=== PATIENT | female | born 1935 | race Caucasian/White ===

== ENCOUNTER 2016-12-08 10:24 | Outpatient (CLI) | payer MEDICARE | END 2016-12-08 10:25 | disposition home or self-care (01) | DX: Z00.00 Encounter for general adult medical examination without abnormal findings (principal); H91.90 Unspecified hearing loss, unspecified ear; K21.9 Gastro-esophageal reflux disease without esophagitis; K31.89 Other diseases of stomach and duodenum; E73.9 Lactose intolerance, unspecified; R19.7 Diarrhea, unspecified; K57.90 Diverticulosis of intestine, part unspecified, without perforation or abscess without bleeding; M85.80 Other specified disorders of bone density and structure, unspecified site; E02 Subclinical iodine-deficiency hypothyroidism ==

== ENCOUNTER 2017-12-26 10:48 | Outpatient (CLI) | payer MEDICARE ==
[2017-12-26 11:32] LABS: BASOPHILS # (AUTO) 0.1 10^3/uL (0.0-0.1); BASOPHILS % (AUTO) 0.8 %; EOSINOPHILS # (AUTO) 0.2 10^3/uL (0.0-0.7); EOSINOPHILS % (AUTO) 1.6 %; LYMPHOCYTES # (AUTO) 1.8 10^3/uL (1.5-3.5); LYMPHOCYTES % (AUTO) 17.8 %; MEAN CORPUSCULAR HEMOGLOBIN 30.3 pg (27.0-31.0); MEAN CORPUSCULAR HGB CONC 33.3 g/dL (32.0-36.0); MEAN CORPUSCULAR VOLUME 91.1 fL (81.0-99.0); MEAN PLATELET VOLUME 8.8 fL (7.9-10.8); MONOCYTES # (AUTO) 0.6 10^3/uL (0.0-1.0); MONOCYTES % (AUTO) 6.3 %; NEUTROPHILS # (AUTO) 7.3 10^3/uL (1.5-6.6); NEUTROPHILS % (AUTO) 73.5 %; PLT - PLATELET COUNT 302 10^3/uL (130-450); RED BLOOD COUNT 4.95 10^6/uL (4.20-5.40); RED CELL DISTRIBUTION WIDTH 14.2 % (12.0-15.0)
[2017-12-26 11:47] LABS: ALBUMIN 4.4 g/dL (3.2-5.5); ALBUMIN/GLOBULIN RATIO 1.5 (1.0-2.2); ALKALINE PHOSPHATASE 82 IU/L (42-121); ALT ALANINE AMINOTRANSFERASE 22 IU/L (10-60); AST ASPARTATE AMINOTRANSFERASE 18 IU/L (10-42); BILIRUBIN,TOTAL 0.8 mg/dL (0.2-1.0); BUN - BLOOD UREA NITROGEN 15 mg/dL (6-20); CARBON DIOXIDE - CO2 27 mmol/L (21-32); CHLORIDE 100 mmol/L (101-111); CHOLESTEROL 152 mg/dL; CREATININE 0.8 mg/dL (0.4-1.0); GFR - MDRD 69 (>89); GLUCOSE 92 mg/dL (70-100); HDL CHOLESTEROL 50 mg/dL; LDL CHOLESTEROL,CALCULATED 70 mg/dL; LDL/HDL RATIO 1.4 (<4.4); MAGNESIUM 2.1 mg/dL (1.7-2.8); SODIUM 134 mmol/L (135-145); TOTAL PROTEIN 7.4 g/dL (6.7-8.2); VLDL CHOLESTEROL 32 mg/dL
[2017-12-26 12:05] LABS: BILIRUBIN,URINE NEGATIVE (NEGATIVE); CLARITY,URINE CLOUDY (CLEAR); GLUCOSE, URINE (UA) NEGATIVE (NEGATIVE); KETONES,URINE (UA) NEGATIVE (NEGATIVE); LEUKOCYTE ESTERASE, URINE NEGATIVE (NEGATIVE); NITRITE,URINE NEGATIVE (NEGATIVE); OCCULT BLOOD,URINE NEGATIVE (NEGATIVE); PH,URINE 5.5 PH (5.0-7.5); PROTEIN,URINE NEGATIVE (NEGATIVE); UROBILINOGEN,URINE 0.2 (NORMAL) E.U./dL (NORMAL)
[2017-12-26 12:06] LABS: RBC MORPHOLOGY (MULTIPLE) 2+ ANISOCYTOSIS (NORMAL)
[2017-12-26 12:07] LABS: PLATELET MORPHOLOGY RARE GIANT PLATELETS (NORMAL)
[2017-12-26 12:14] LABS: THYROID STIMULATING HORMONE 1.18 uIU/mL (0.34-5.60)
[2017-12-26 12:16] LABS: FREE T4 (FREE THYROXINE) 0.93 ng/dL (0.58-1.64)
[2017-12-26 12:41] LABS: RBC,URINE 0-5 /HPF (0-5)
[2017-12-26 12:42] LABS: AMORPHOUS SEDIMENT,UR Moderate /LPF; BACTERIA,URINE Few /HPF (None Seen); SQUAMOUS EPITHELIAL CELL,UR MOD Squamous (<= Few)
== END 2017-12-26 10:49 | disposition home or self-care (01) ==
LOC: LAB 10:48
PROVIDERS: ATTEND Internal Medicine
DX: Z79.899 Other long term (current) drug therapy (principal); G47.00 Insomnia, unspecified; L98.9 Disorder of the skin and subcutaneous tissue, unspecified; I10 Essential (primary) hypertension; H91.90 Unspecified hearing loss, unspecified ear; K21.9 Gastro-esophageal reflux disease without esophagitis; R19.7 Diarrhea, unspecified; M54.2 Cervicalgia; M25.50 Pain in unspecified joint; Z87.442 Personal history of urinary calculi; M85.80 Other specified disorders of bone density and structure, unspecified site; E02 Subclinical iodine-deficiency hypothyroidism; R42 Dizziness and giddiness; R00.1 Bradycardia, unspecified; R00.2 Palpitations
CPT/HCPCS: 36415; 80053; 80061; 81001; 83721; 83735; 84439; 84443; 85025; 87086

== ENCOUNTER 2018-08-29 13:38 | Outpatient (CLI) | payer MEDICARE ==
--- NOTE | 2018-08-30 08:40 | Mammography Report ---
Reason: SCREENING MAMMO Procedure Date: 08/29/2018 Accession Number: [id number] / [id number] Procedure: JAKI - Screening Mammo w/[place] CPT Code: FULL RESULT: EXAM: Screening Mammo w/[place] DATE: 08/29/2018 2:37 PM CLINICAL HISTORY: Screening and contour. History of cyst aspiration or removal in the cleavage area. Family history of breast cancer in the mother at age 78. TECHNIQUE: Bilateral CC and MLO views were obtained. COMPARISON: 08/29/2017 through 08/02/2013. FINDINGS: The breasts demonstrate scattered fibroglandular densities bilaterally. There are typically benign coarse bilateral calcifications. No suspicious masses, clustered microcalcifications, or regions of architectural distortion are identified. IMPRESSION: Benign findings RECOMMENDATION: Routine annual screening unless otherwise clinically indicated. BIRADS CATEGORY 2: Benign findings STANDARD QUALIFYING STATEMENTS: 1. This examination was not reviewed with the aid of Computer-Aided Detection (CAD). 2. A negative or benign imaging report should not preclude biopsy if clinically suspicious findings are present. 3. Dense breasts may obscure an underlying neoplasm. 4. This examination was reviewed with the aid of 3D breast imaging (tomosynthesis).
== END 2018-08-29 13:39 | disposition home or self-care (01) ==
LOC: DI 13:38
PROVIDERS: ATTEND Internal Medicine
DX: Z12.31 Encounter for screening mammogram for malignant neoplasm of breast (principal); Z80.3 Family history of malignant neoplasm of breast
CPT/HCPCS: 77063; 77067

== ENCOUNTER 2019-06-16 04:45 | Outpatient (CLI) | payer MEDICARE | END 2019-06-16 04:46 | disposition critical access hospital (66) | LOC: EMS 04:45 | PROVIDERS: ATTEND Surgery | DX: R51 Headache (principal); R41.82 Altered mental status, unspecified | CPT/HCPCS: A0425; A0429 ==

== ENCOUNTER 2019-06-16 04:57 | Inpatient (IN) | payer MEDICARE ==
--- NOTE | 2019-06-16 05:06 | ED Physician Documentation ---
History of Present Illness - Stated complaint Stated Complaint: HEADACHE/DECREASED STRENGTH - Chief complaint Chief Complaint: Neuro - Additonal information Additional information: This is an 83-year-old female with a history of hypertension, Who presents with headache and confusion. Patient called for EMS and stated that she needed help getting back in the bed, when they arrived she met them at the door and stated that she was confused and had a headache. Specifically she states she is having trouble finding some words. She states the headache began around 2 to 3 hours ago, and was somewhat gradual in onset, but is now severe 8 out of 10. She has had headaches in the past but not as severe as this. She also states that she feels confused, and she thinks this began 4 hours ago. She denies any weakness, numbness, or tingling. No fever or chills. She denies any history of atrial fibrillation or other heart dysrhythmias. She denies falling or hitting her head. Her headache is bifrontal and constant. She is not on any blood thinners. Review of Systems Constitutional: denies: Fever Eyes: denies: Loss of vision Ears: reports: Loss of hearing, Other (wears hearing aids) Nose: denies: Rhinorrhea / runny nose Cardiac: reports: Chest pain / pressure, Palpitations Respiratory: denies: Dyspnea GI: denies: Abdominal Pain : denies: Dysuria Skin: denies: Rash Musculoskeletal: denies: Neck pain Neurologic: reports: Generalized weakness Immunocompromised: denies: Immunocompromised PD PAST MEDICAL HISTORY - Past Medical History Cardiovascular: Hypertension Respiratory: None Endocrine/Autoimmune: None GI: GERD, Hiatal hernia, Colon polyps, Diverticulitis : Frequency HEENT: None Psych: Claustrophobia Musculoskeletal: Osteoarthritis Derm: None - Past Surgical History Past Surgical History: Yes General: Cholecystectomy, 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 HEENT: Tonsil/Adenoidectomy - Present Medications Home Medications: Ambulatory Orders Medication Instructions Recorded Confirmed Amlodipine Besylate/Benazepril 1 mg PO DAILY 09/04/13 02/26/15 [Amlodipine-Benazepril 10-20 mg] Calcium Citrate/Vitamin D3 1 tab PO DAILY 09/04/13 02/26/15 [Calcium Citrate - Vit D Tablet] Cholestyramine/Aspartame 1 unit PO DAILY 09/04/13 02/26/15 [Cholestyramine Light Packet] Omeprazole [PriLOSEC] 20 mg PO DAILY 09/04/13 02/26/15 Ibuprofen [Motrin] 600 mg PO TID #20 tab 09/05/13 02/26/15 Meclizine [Antivert] 25 mg PO Q6H PRN #30 tablet 02/26/15 Ondansetron Odt [Zofran] 4 mg TL Q6H PRN #10 tablet 02/26/15 - Allergies Allergies/Adverse Reactions: Allergies Allergy/AdvReac Type Severity Reaction Status Date / Time latex Allergy Intermediate swelling Verified 06/16/19 05:12 ascorbic acid Allergy Unknown Unknown Verified 06/16/19 05:12 Penicillins AdvReac Intermediate Rash Verified 06/16/19 05:12 Sulfa (Sulfonamide AdvReac Intermediate Itching Verified 06/16/19 05:12 Antibiotics) - Social History Does the pt smoke?: No Smoking Status: Never smoker Does the pt drink ETOH?: No Does the pt have substance abuse?: No - Immunizations Immunizations are current?: Yes PD ED PE NORMAL - Vitals Vital signs reviewed: Yes - General General: No acute distress - HEENT HEENT: Atraumatic, PERRL, EOMI - Neck Neck: Supple, no meningeal sign, No bony TTP - Cardiac Cardiac: Other (Irregularly irregular heartbeat, tachycardic.) - Respiratory Respiratory: Clear bilaterally - Abdomen Abdomen: Soft, Non tender, Non distended - Derm Derm: Warm and dry - Extremities Extremities: No deformity - Neuro Neuro: Alert and oriented X 3, pm technician 2-12 intact, No motor deficit, No sensory deficit, Other (Patient is alert and oriented to self, place, and event. She has a slight delay in her speech at times, and some mild word-finding difficulty she states that she feels confused. Her pronounciation is normal. She has normal coordination with [id number] testing. 5 out of 5 strength with hand squeeze finger abduction elbow flexion and extension hip flexion, ankle plantarflexion and dorsiflexion. Sensation to light touch intact over all e xtremities. Mild right hemineglect on RUE extremity and R upper visual field. NIHSS 3 (Visual field, mild R neglect, mild aphasia)) - Psych Psych: Normal mood, Normal affect Results - Vitals Vitals: Vital Signs - 24 hr 06/16/19 06/16/19 06/16/19 04:57 05:03 05:33 Temperature 36 C L 36.9 C Heart Rate 136 H 160 H 130 H Respiratory 22 22 18 Rate Blood Pressure 124/89 H 152/73 H O2 Saturation 99 98 97 06/16/19 06/16/19 06/16/19 06:03 06:30 07:00 Temperature Heart Rate 135 H 157 H 115 H Respiratory 18 16 21 Rate Blood Pressure 109/84 H 131/76 H O2 Saturation 96 95 96 Oxygen O2 Source Room air - EKG (time done) 5:05 Other comments: Other comments (Rate 137, rhythm atrial fibrillation with rapid ventricular response. There is slight ST depression in the lateral leads, which may be rate related. No ST segment elevation.) - Labs Labs: Laboratory Tests 06/16/19 06/16/19 06/16/19 05:13 05:13 05:13 WBC 12.4 H RBC 4.92 Hgb 15.2 Hct 46.6 MCV 94.7 MCH 30.9 MCHC 32.6 RDW 13.2 Plt Count 293 MPV 11.5 H Neut # (Auto) 8.9 H Lymph # (Auto) 2.2 Bay # (Auto) 1.0 Eos # (Auto) 0.3 Baso # (Auto) 0.1 Absolute Nucleated RBC 0.00 Nucleated RBC % 0.0 PT INR Sodium 141 Potassium 4.0 Chloride 106 Carbon Dioxide 24 Anion Gap 11.0 BUN 20 Creatinine 0.9 Estimated GFR (MDRD) 60 L Glucose 115 H Lactic Acid Calcium 9.3 Total Bilirubin 0.8 AST 23 ALT 32 Alkaline Phosphatase 58 Troponin I High Sens 5.2 Total Protein 6.9 Albumin 3.9 Globulin 3.0 Albumin/Globulin Ratio 1.3 Lipase 22 TSH Urine Color Urine Clarity Urine pH Ur Specific Hustler Urine Protein Urine Glucose (UA) Urine Ketones Urine Occult Blood Urine Nitrite Urine Bilirubin Urine Urobilinogen Ur Leukocyte Esterase Ur Microscopic Review Urine Culture Comments Urine Opiates Screen Ur Oxycodone Screen Urine Methadone Screen Ur Propoxyphene Screen Ur Barbiturates Screen Ur Tricyclics Screen Ur Phencyclidine Scrn Ur Amphetamine Screen U Methamphetamines Scrn U Benzodiazepines Scrn Urine Cocaine Screen U Cannabinoids Screen Ethyl Alcohol < 5.0 06/16/19 06/16/19 06/16/19 05:13 05:13 05:13 WBC RBC Hgb Hct MCV MCH MCHC RDW Plt Count MPV Neut # (Auto) Lymph # (Auto) Bay # (Auto) Eos # (Auto) Baso # (Auto) Absolute Nucleated RBC Nucleated RBC % PT 11.4 INR 1.0 Sodium Potassium Chloride Carbon Dioxide Anion Gap BUN Creatinine Estimated GFR (MDRD) Glucose Lactic Acid 2.3 H Calcium Total Bilirubin AST ALT Alkaline Phosphatase Troponin I High Sens Total Protein Albumin Globulin Albumin/Globulin Ratio Lipase TSH 1.20 Urine Color Urine Clarity Urine pH Ur Specific Hustler Urine Protein Urine Glucose (UA) Urine Ketones Urine Occult Blood Urine Nitrite Urine Bilirubin Urine Urobilinogen Ur Leukocyte Esterase Ur Microscopic Review Urine Culture Comments Urine Opiates Screen Ur Oxycodone Screen Urine Methadone Screen Ur Propoxyphene Screen Ur Barbiturates Screen Ur Tricyclics Screen Ur Phencyclidine Scrn Ur Amphetamine Screen U Methamphetamines Scrn U Benzodiazepines Scrn Urine Cocaine Screen U Cannabinoids Screen Ethyl Alcohol 06/16/19 06:37 WBC RBC Hgb Hct MCV MCH MCHC RDW Plt Count MPV Neut # (Auto) Lymph # (Auto) Bay # (Auto) Eos # (Auto) Baso # (Auto) Absolute Nucleated RBC Nucleated RBC % PT INR Sodium Potassium Chloride Carbon Dioxide Anion Gap BUN Creatinine Estimated GFR (MDRD) Glucose Lactic Acid Calcium Total Bilirubin AST ALT Alkaline Phosphatase Troponin I High Sens Total Protein Albumin Globulin Albumin/Globulin Ratio Lipase TSH Urine Color YELLOW Urine Clarity CLEAR Urine pH 5.0 Ur Specific Hustler >=1.030 H Urine Protein NEGATIVE Urine Glucose (UA) NEGATIVE Urine Ketones NEGATIVE Urine Occult Blood NEGATIVE Urine Nitrite NEGATIVE Urine Bilirubin NEGATIVE Urine Urobilinogen 0.2 (NORMAL) Ur Leukocyte Esterase NEGATIVE Ur Microscopic Review NOT INDICATED Urine Culture Comments NOT INDICATED Urine Opiates Screen NEGATIVE Ur Oxycodone Screen NEGATIVE Urine Methadone Screen NEGATIVE Ur Propoxyphene Screen NEGATIVE Ur Barbiturates Screen NEGATIVE Ur Tricyclics Screen NEGATIVE Ur Phencyclidine Scrn NEGATIVE Ur Amphetamine Screen NEGATIVE U Methamphetamines Scrn NEGATIVE U Benzodiazepines Scrn NEGATIVE Urine Cocaine Screen NEGATIVE U Cannabinoids Screen NEGATIVE Ethyl Alcohol PD MEDICAL DECISION MAKING - TPA CVA checklist Absolute contraindications if 3-4.5 hr: positive: Age > 80
[2019-06-16] MEDS ORDERED: SODIUM CHLORIDE 0.9% 1,000 ML IV ONE (05:15)
[2019-06-16 05:34] LABS: PT - PROTHROMBIN TIME 11.4 secs (9.9-12.6)
[2019-06-16 05:35] LABS: BASOPHILS # (AUTO) 0.1 10^3/uL (0.0-0.1); BASOPHILS % (AUTO) 0.9 %; EOSINOPHILS # (AUTO) 0.3 10^3/uL (0.0-0.7); EOSINOPHILS % (AUTO) 2.7 %; HGB - HEMOGLOBIN 15.2 g/dL (12.0-16.0); LYMPHOCYTES # (AUTO) 2.2 10^3/uL (1.5-3.5); LYMPHOCYTES % (AUTO) 17.3 %; MEAN CORPUSCULAR HEMOGLOBIN 30.9 pg (27.0-31.0); MEAN CORPUSCULAR HGB CONC 32.6 g/dL (32.0-36.0); MEAN CORPUSCULAR VOLUME 94.7 fL (81.0-99.0); MEAN PLATELET VOLUME 11.5 fL (7.9-10.8); MONOCYTES % (AUTO) 7.6 %; NEUTROPHILS # (AUTO) 8.9 10^3/uL (1.5-6.6); NEUTROPHILS % (AUTO) 71.1 %; PLT - PLATELET COUNT 293 10^3/uL (130-450); RED BLOOD COUNT 4.92 10^6/uL (4.20-5.40); RED CELL DISTRIBUTION WIDTH 13.2 % (12.0-15.0); WHITE BLOOD COUNT 12.4 x10^3/uL (4.8-10.8)
[2019-06-16] MEDS ORDERED: ONDANSETRON 4 MG/2 ML VIAL IVP STA (05:35)
[2019-06-16] MEDS ORDERED: ACETAMINOPHEN 325 MG TABLET PO STA (05:35)
--- NOTE | 2019-06-16 05:51 | CT Report ---
Reason: headache and confusion Procedure Date: 06/16/2019 Accession Number: [id number] / [id number] Procedure: CT - HEAD WO CPT Code: FULL RESULT: EXAM: CT HEAD EXAM DATE: 06/16/2019 05:38 AM. CLINICAL HISTORY: Headache and confusion. Left-sided weakness started at 1:30 AM. COMPARISON: HEAD W/O 02/26/2015 12:24 PM. TECHNIQUE: Multiaxial CT images were obtained from the foramen magnum to the vertex. Reformats: Sagittal and coronal. IV contrast: None. In accordance with CT protocol optimization, one or more of the following dose reduction techniques were utilized for this exam: automated exposure control, adjustment of mA and/or KV based on patient size, or use of iterative reconstructive technique. FINDINGS: Parenchyma: No acute intracranial hemorrhage or large cortical infarct. No intra-axial mass within the confines of a non-contrast exam. No midline shift. Extraaxial Spaces: No abnormal extra-axial collections demonstrated. Ventricles and sulci: Ventricles and sulci are proportional. Sinuses: Visualized paranasal sinuses are without air-fluid level. No evident mastoid fluid. Orbits: Without significant abnormality. Bones: No evidence of fracture or calvarial defect. Other: Nonspecific scattered soft tissue gas within the left pterygopalatine fossa. IMPRESSION: 1. No CT evidence of an acute intracranial abnormality. If there is clinical suspicion of an acute infarct, consider MRI since it is more sensitive than CT. 2. Nonspecific small amount of soft tissue gas within the left pterygopalatine fossa. If there is history of trauma to this area, further assessment recommended with maxillofacial CT. RADIA
--- NOTE | 2019-06-16 05:53 | XRAY Report ---
Reason: AMS Procedure Date: 06/16/2019 Accession Number: [id number] / [id number] Procedure: XR - Chest 1 View X-Ray CPT Code: 27831 FULL RESULT: EXAM: CHEST RADIOGRAPHY EXAM DATE: 06/16/2019 05:40 AM. CLINICAL HISTORY: AMS. COMPARISON: None. TECHNIQUE: 1 view. FINDINGS: Lungs/Pleura: Mild left basilar atelectasis. Lungs otherwise clear. No pulmonary edema. No pleural effusion. No pneumothorax. Mediastinum: Upper normal cardiac silhouette size. No mediastinal widening. Atherosclerosis at aortic arch. Other: None. IMPRESSION: 1. Mild left basilar atelectasis. Otherwise no evidence of acute pulmonary process. 2. Upper normal cardiac silhouette size. RADIA
[2019-06-16 06:03] LABS: ALBUMIN 3.9 g/dL (3.2-5.5); ALBUMIN/GLOBULIN RATIO 1.3 (1.0-2.2); ALKALINE PHOSPHATASE 58 IU/L (42-121); ALT ALANINE AMINOTRANSFERASE 32 IU/L (10-60); AST ASPARTATE AMINOTRANSFERASE 23 IU/L (10-42); BILIRUBIN,TOTAL 0.8 mg/dL (0.2-1.0); BUN - BLOOD UREA NITROGEN 20 mg/dL (6-20); CALCIUM 9.3 mg/dL (8.5-10.3); CARBON DIOXIDE - CO2 24 mmol/L (21-32); CHLORIDE 106 mmol/L (101-111); CREATININE 0.9 mg/dL (0.4-1.0); GFR - MDRD 60 (>89); GLUCOSE 115 mg/dL (70-100); LIPASE 22 U/L (22-51); SODIUM 141 mmol/L (135-145); TOTAL PROTEIN 6.9 g/dL (6.7-8.2)
[2019-06-16] MEDS ORDERED: ACETAMINOPHEN 1,000 MG/100 ML 100 ML IV STA (06:12)
[2019-06-16] MEDS ORDERED: diltiaZEM INJ 5 MG/ML VIAL IVP STA ×2 (06:12→06:34)
[2019-06-16] MEDS ORDERED: IOVERSOL 320 100 ML VIAL IVP ONE ×2 (06:40→07:07)
[2019-06-16 06:52] LABS: MUDS CUTOFF CONCENTRATIONS CUTOFF CONC BELOW:
[2019-06-16 06:54] LABS: BILIRUBIN,URINE NEGATIVE (NEGATIVE); GLUCOSE, URINE (UA) NEGATIVE (NEGATIVE); KETONES,URINE (UA) NEGATIVE (NEGATIVE); LEUKOCYTE ESTERASE, URINE NEGATIVE (NEGATIVE); NITRITE,URINE NEGATIVE (NEGATIVE); OCCULT BLOOD,URINE NEGATIVE (NEGATIVE); PROTEIN,URINE NEGATIVE (NEGATIVE); UROBILINOGEN,URINE 0.2 (NORMAL) E.U./dL (NORMAL)
[2019-06-16 06:55] LABS: CLARITY,URINE CLEAR (CLEAR)
[2019-06-16 07:04] LABS: AMPHETAMINE SCREEN,URINE NEGATIVE (NEGATIVE); BENZODIAZEPINES SCREEN, URINE NEGATIVE (NEGATIVE); COCAINE SCREEN URINE NEGATIVE (NEGATIVE); METHADONE SCREEN, URINE NEGATIVE (NEGATIVE); METHAMPHETAMINES SCREEN, URINE NEGATIVE (NEGATIVE); OPIATE SCREEN, URINE NEGATIVE (NEGATIVE); OXYCODONE SCREEN, URINE NEGATIVE (NEGATIVE); PROPOXYPHENE SCREEN, URINE NEGATIVE (NEGATIVE); TRICYCLIC ANTIDEPRESSANT,URINE NEGATIVE (NEGATIVE)
--- NOTE | 2019-06-16 07:27 | CT Report ---
Reason: Dysphasia, neglect, asses for large vessel cut off Procedure Date: 06/16/2019 Accession Number: [id number] / [id number] Procedure: CT - ANGIO HEAD W/WO CPT Code: FULL RESULT: EXAM: CT ANGIOGRAM HEAD. CT SCAN OF THE HEAD WITH CONTRAST. EXAM DATE: 06/16/2019 07:03 AM CLINICAL HISTORY: Dysphasia, neglect, asses for large vessel cut off. COMPARISON: CT head without contrast 06/16/2019. CT injury of neck 06/16/2019. TECHNIQUE: - CT Scan Head: Using a multidetector scanner, axial images were acquired from the foramen magnum to the skull vertex prior to and following contrast administration. - CT Angiogram: Using a multidetector scanner, high-resolution axial images were acquired from the skull base through vertex following rapid infusion of intravenous contrast. Reformats: Multiplanar MIP reformats were reconstructed. Nascet criteria used for stenosis measurement. IV Contrast: 80 mL Optiray 320. In accordance with CT protocol optimization, one or more of the following dose reduction techniques were utilized for this exam: automated exposure control, adjustment of mA and/or KV based on patient size, or use of iterative reconstructive technique. FINDINGS: CT HEAD: No enhancing mass is identified in the brain parenchyma. CT ANGIOGRAM HEAD: No hemodynamically significant stenosis, occlusion, or filling defect is seen in the proximal aspect of the major intracranial vessels. There is a moderate stenosis in the more distal aspect of each PROSTHETIC ASSISTANT. A posterior communicating artery is seen on the right. There is an anterior communicating artery present. No saccular outpouching of contrast is present to suggest an aneurysm. Mild narrowing is seen in the cavernous ICA bilaterally due to atherosclerotic plaque. Expected enhancement is present in the major dural venous sinuses. OTHER: No mass is identified in either orbit or in the visualized nasopharynx. A well-circumscribed oval focus overlying the right mormonism lateral to the temporalis muscle measuring 16 mm in size is noted best seen image 24 series 4. This enhances identical to adjacent veins and is felt to reflect a venous varix. IMPRESSION: CT Head: 1. No enhancing mass. CTA Head: 1. No proximal large vessel occlusion. 2. Mild to moderate stenosis is seen in each PROSTHETIC ASSISTANT. RADIA
--- NOTE | 2019-06-16 07:35 | CT Report ---
Reason: right neglect, dysphasia Procedure Date: 06/16/2019 Accession Number: [id number] / [id number] Procedure: CT - ANGIO NECK W CPT Code: FULL RESULT: EXAM: CT ANGIOGRAM NECK EXAM DATE: 06/16/2019 07:05 AM. CLINICAL HISTORY: Right neglect, dysphasia. COMPARISON: CT head and CT angiogram of head same date. TECHNIQUE: Routine axial helical imaging was performed from the skull base through the aortic arch. Reconstructions: Routine multiplanar 3D MIP reconstructions. IV Contrast: 80 mL Optiray 320. Evaluation of arterial stenosis is based on a NASCET method of measurement. In accordance with CT protocol optimization, one or more of the following dose reduction techniques were utilized for this exam: automated exposure control, adjustment of mA and/or KV based on patient size, or use of iterative reconstructive technique. FINDINGS: Right Carotid: The common carotid, internal carotid, and external carotid arteries are widely patent. No dissection, significant atherosclerotic plaque, or calcification identified. Left Carotid: The common carotid, internal carotid, and external carotid arteries are widely patent. No dissection, significant atherosclerotic plaque, or calcification identified. Vertebrals: No significant stenosis is present in either visualized vertebral artery. The proximal left vertebral artery is poorly visualized. Intracranial Circulation: The reader is referred to the patient's CTA of the head performed today and dictated under separate cover. Great Vessel Origins: No hemodynamically significant stenosis is present at the great vessel origins. Other: No mass is present in the nasopharynx. No mass is present in either submandibular gland or in either parotid gland. Thyroid nodules are present bilaterally. On the right there is a thyroid nodule measuring up to 2.5 cm in size. No bulky lymphadenopathy is seen in the visualized upper mediastinum or along either internal jugular chain. Just above the clavicle in the posterior triangle on the right there are borderline 9 mm short axis lymph nodes present. Image 170 series 2. No suspicious spiculated mass is present in either lung apex. Degenerative disk disease and osteophyte formation are seen in the spine, greatest in the cervical spine at C5-C6. IMPRESSION: 1. No hemodynamically significant stenosis is present in either cervical ICA or in either cervical vertebral artery. 2. The right thyroid lobe is enlarged and demonstrates a peripheral enhancing mass which measures up to 2.[address] cannot distinguish benign from malignant thyroid disease. A smaller thyroid nodule is seen in the left. 3. Borderline lymph nodes are seen in the right lower neck. These could be reactive in nature. A neoplastic etiology such as a lymphoproliferative disorder is in the differential. 4. Degenerative changes in the visualized spine. RADIA
[2019-06-16] MEDS ORDERED: ACETAMINOPHEN 325 MG TABLET PO PRN (08:08)
[2019-06-16] MEDS ORDERED: SODIUM CHLORIDE FLUSH 0.9% 10 ML SYRINGE IVP PRN (08:08)
[2019-06-16] MEDS ORDERED: PROCHLORPERAZINE 10 MG/2 ML VIAL IVP PRN (08:08)
[2019-06-16] MEDS: FAMOTIDINE 20 MG TABLET PO SCH ×2 (09:41→20:45)
[2019-06-16] MEDS: SODIUM CHLORIDE FLUSH 0.9% 10 ML SYRINGE IVP SCH ×2 (09:45→17:05)
[2019-06-16] MEDS: ASPIRIN 325 MG TABLET PO SCH (12:18)
[2019-06-16] MEDS ORDERED: DICLOFENAC SODIUM TOP PRN (16:21)
--- NOTE | 2019-06-16 20:04 | HISTORY & PHYSICAL EXAMINATION ---
DATE OF SERVICE: 06/16/2019 Physician: Yasmin Macedo MD HISTORY OF PRESENT ILLNESS: This is an 83-year-old white female with a history of hypertension, dizziness, which has not had an etiology found, and she occasionally has to "wall walk." She describes tinnitus and she herself thinks she has Meniere's disease. She was told she has a heart murmur. There is history of GERD, hiatal hernia, colonic polyps and diverticulitis in the past, osteoarthritis, hysterectomy, cholecystectomy. Patient states that she gets palpitations, which can last up to 30 minutes, for many years, and have also never been diagnosed. Patient lives alone, for about 11 years after a divorce. She is independent, drives a car. Two daughters are in the close area. Patient awoke at approximately midnight and could not fall asleep, and therefore she took a book to try to read, which usually makes her sleepy. She noticed that she could "not read the words." She was worried that she was having a stroke and took 2 aspirin for this and then tried to sleep, but then got more worried that this was a stroke and she called her [facility] and EMS arrived. She had told him that she fell, but in fact, she was at the door standing to let them in and she complained that she was "confused." The ambulance run sheet indicates that she had complaints of decreased memory, severe left-sided headache, and at the scene had a blood pressure 150/68, with a pulse of 85 that was irregular and normal oxygen saturation. In the emergency room, she was found to be in atrial fibrillation with a rapid ventricular rate of 130-140 and received IV diltiazem. She underwent a head CT, which did not show any hemorrhage or massive bleed, and [facility] Neurology was called, who advised that she undergo a CT angio to look for any occlusions; none were found. Neurology at [facility] therefore recommended that she be admitted here for management of a stroke. Her significant findings in the ER on the neuro exam were that of right-sided gaze neglect and also inability to understand the written word and some forgetfulness, but no localized motor or sensory loss and normal cranial nerve exam. PAST MEDICAL HISTORY 1. Hypertension. 2. Possibly a heart murmur. 3. Dizziness, which has not been worked up or diagnosed. 4. Tinnitus, intermittently. 5. GERD. ALLERGIES 1. LACTOSE INTOLERANT. 2. LATEX. 3. VITAMIN C. 4. PENICILLIN. 5. SULFA. MEDICATIONS 1. Omeprazole 40 mg daily. 2. Aspirin 325 mg daily. 3. Benazepril 20 mg daily. 4. Amlodipine 10 mg daily. 5. Diclogel topically p.r.n. 6. Cholestyramine with aspartame packet 4 g p.o. daily. REVIEW OF SYSTEMS: Patient denies ever having a stress test and has had no prior cardiac history according to her. She has had no prior CT of the head or neurologic diagnoses in the past. A comprehensive review of systems was performed, and the pertinent positives are listed above; the rest are negative. SOCIAL HISTORY: Patient lives alone, is a nonsmoker, who never smoked. Drinks no alcohol. No illicit drug use. She drives a car, is active around her house; however, her daughters are starting to assist her. She has been for 11 years. FAMILY HISTORY: No inherited diseases. She has 2 brothers who are healthy and 2 children who are healthy. PHYSICAL EXAMINATION GENERAL: Elderly white female who appears younger than her age. VITAL SIGNS: Blood pressure 130/99, pulse of 113, in atrial fibrillation, which then converted to sinus rhythm at 60-70. Afebrile and room air saturation 92%. HEENT: Unremarkable except for the neuro exam. NECK: Without JVD or carotid bruits. CHEST: Clear. HEART: Heart sounds normal, distant. No audible murmur. ABDOMEN: Soft, positive bowel sounds, nontender. No organomegaly. EXTREMITIES: No clubbing, cyanosis, or edema. NEUROLOGIC: Right-sided neglect and inability to understand the written word, but no motor or sensory deficits grossly. LABORATORY/DATA Normal electrolytes. Normal BUN and creatinine. Troponin high sensitivity normal at 5.2. Lipase normal. Liver tests normal. INR 1.0. CBC shows white count of 12.4 and neutrophils of 8.9, hemoglobin 15, platelet count 203. Lactic acid elevated at 2.3 and on repeat 2.4. Toxicology was negative for serum alcohol, and no other drugs are present in the urine toxicology screen. Urinalysis had specific gravity of greater than 1.030, negative nitrite, negative leukocyte esterase. IMAGING A chest x-ray showed mild left basilar atelectasis and a normal cardiac silhouette. EKG: Atrial fibrillation with rapid rate of 137. Low voltage in the limb leads, QS wave in V1 and V2, diffuse nonspecific ST-T changes. EKG #2 shows normal sinus rhythm at a rate of 70, and QS wave present in V1 and V2, and no significant ST or T-wave abnormalities. 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 There is an incidental finding in the neck of a right thyroid lobe that is enlarged with a peripheral enhancing mass that measures up to 2.5 cm, and a smaller thyroid nodule also on the left, and mild lymph node enlargement in the right lower neck. A head CT showed no acute intracranial abnormality and soft tissue gas within the left pterygopalatine fossa, and recommendation for maxillofacial CT was given. IMPRESSION/DIAGNOSES 1. Acute stroke. 2. New onset of atrial fibrillation. 3. Paroxysmal Afib with rapid ventricular response. 4. Prior history of palpitations that were never diagnosed. 5. Hypertension. 6. Dizziness 7. Tinnitus. Patient suspects she has Meniere disease. 8. Elevated lactic acid level of unclear etiology. 9. Thyroid mass with lymph nodes present, rule out malignancy. 10. Disorder of nasal sinus: abnormal gas seen in the pterygopalatine fossa. PLAN: Admit patient to inpatient status. Start telemetry and continue to monitor the rhythm. Obtain another troponin value because of the ST abnormality on the first EKG. Obtain lipid panel and treat per guidelines. Continue daily aspirin. If it is true that she was on aspirin already, then Plavix may need to be added to her regimen as she is being worked up for the stroke. Obtain an Echo to evaluate for intracardiac clot or intracardiac shunt. Evaluate the murmur that she described and any structural heart disease. Obtain a brain MRI to establish location of the stroke. Begin PT and OT, and depending on her deficits she may need further rehabilitation and placement for [facility] versus going home with more help. Social work consult regarding home caregiving ordered. Obtain a CT (or MRI) of the maxillofacial area, as well as blood cultures, which were done in the ER because of the elevated lactic acid and white count. Check thyroid function tests because of the atrial fibrillation. She will eventually need workup of the thyroid mass with its neighboring lymph nodes to rule out malignancy. Hold the benazepril and amlodipine to allow permissive hypertension during this acute phase of a stroke for brain perfusion. DEEP VENOUS THROMBOSIS PROPHYLAXIS: SCDs. CODE STATUS: FULL CODE. ATTESTATION: Patient is expected to be discharged or transferred to another facility within 96 hours: Yes. cc: Shameka Velasquez MD TD: 06/16/2019 16:53 MTDD
[2019-06-16 21:13] LABS: CALCIUM 8.8 mg/dL (8.5-10.3); CREATININE 0.9 mg/dL (0.4-1.0); PHOSPHORUS 3.5 mg/dL (2.5-4.6)
[2019-06-17] MEDS: SODIUM CHLORIDE FLUSH 0.9% 10 ML SYRINGE IVP SCH ×3 (00:40→17:12)
[2019-06-17 06:53] LABS: BASOPHILS # (AUTO) 0.1 10^3/uL (0.0-0.1); BASOPHILS % (AUTO) 1.1 %; EOSINOPHILS # (AUTO) 0.2 10^3/uL (0.0-0.7); EOSINOPHILS % (AUTO) 3.6 %; HGB - HEMOGLOBIN 13.2 g/dL (12.0-16.0); LYMPHOCYTES # (AUTO) 1.6 10^3/uL (1.5-3.5); LYMPHOCYTES % (AUTO) 25.3 %; MEAN CORPUSCULAR HEMOGLOBIN 30.8 pg (27.0-31.0); MEAN CORPUSCULAR HGB CONC 32.4 g/dL (32.0-36.0); MEAN CORPUSCULAR VOLUME 95.1 fL (81.0-99.0); MEAN PLATELET VOLUME 10.9 fL (7.9-10.8); MONOCYTES # (AUTO) 0.6 10^3/uL (0.0-1.0); MONOCYTES % (AUTO) 9.5 %; NEUTROPHILS # (AUTO) 3.8 10^3/uL (1.5-6.6); NEUTROPHILS % (AUTO) 60.2 %; PLT - PLATELET COUNT 250 10^3/uL (130-450); RED BLOOD COUNT 4.28 10^6/uL (4.20-5.40); RED CELL DISTRIBUTION WIDTH 13.2 % (12.0-15.0); WHITE BLOOD COUNT 6.3 x10^3/uL (4.8-10.8)
[2019-06-17 07:02] LABS: BUN - BLOOD UREA NITROGEN 15 mg/dL (6-20); CALCIUM 8.5 mg/dL (8.5-10.3); CARBON DIOXIDE - CO2 26 mmol/L (21-32); CHLORIDE 107 mmol/L (101-111); CHOL/HDL RATIO 3.4 (<4.4); CHOLESTEROL 125 mg/dL; CREATININE 0.7 mg/dL (0.4-1.0); GFR - MDRD 80 (>89); GLUCOSE 95 mg/dL (70-100); HDL CHOLESTEROL 37 mg/dL; LDL CHOLESTEROL,CALCULATED 59 mg/dL; LDL/HDL RATIO 1.6 (<4.4); MAGNESIUM 2.1 mg/dL (1.7-2.8); SODIUM 139 mmol/L (135-145); VLDL CHOLESTEROL 29 mg/dL
[2019-06-17] MEDS: FAMOTIDINE 20 MG TABLET PO SCH ×2 (08:59→22:04)
[2019-06-17] MEDS: POLYETHYLENE GLYCOL 3350 17 GM PACKET PO SCH (08:59)
[2019-06-17] MEDS: ASPIRIN 325 MG TABLET PO SCH (08:59)
[2019-06-17] MEDS ORDERED: ASPIRIN 325 MG TABLET PO SCH (09:00)
--- NOTE | 2019-06-17 09:16 | PROVIDER PROGRESS NOTE ---
Assessment/Plan - Problem List (1) Cerebrovascular accident (CVA) Qualifiers: CVA mechanism: unspecified Qualified Code(s): I63.9 - Cerebral infarction, unspecified Assessment/Plan: She has improved vision, in terms of understanding what she is reading. She still has the "confusion" and reports that a memory problem continues. Continue daily ASA. Possibly add Plavix. Will recheck brain imaging for any hemorrhagic transformation first. Lipid panel was good: LDL is well below 100, at 59 and triglycerides are 147. PT today. OT also ordered. (2) Atrial fibrillation Qualifiers: Atrial fibrillation type: unspecified Qualified Code(s): I48.91 - Unspecified atrial fibrillation Assessment/Plan: No recurrence of Afib since converted to NSR. PT did evaluation and found no muscular weakness. Will start a low dose of B-christiano to suppress Afib with RVR. Continue telemetry. Continue Aspirin daily. Her CHADS score is 3 (it is unknown if she has CHF with no Echo done yet, but this patient has HTN, Age> 79 and Stroke). Would not use anticoagulation acutely, however, since she could develop a hemorrhagic stroke. Awaiting MRI (no MRI here over the weekend, yesterday and today). Will have to clarify where she has "port lions". Lipid panel pending. Echo pending. PT did evaluation, but needs OT evaluation. (3) SVT (supraventricular tachycardia) Assessment/Plan: She had a long runs of SVT at 5 pm and 8:10 pm yesterday. Will start B-christiano (as above in #2). (4) Dizziness Assessment/Plan: A re-evaluation with PT is planned, now that she can see and to also assess the intermittent dizziness problem (5) Hx of essential hypertension Assessment/Plan: Her Benazapril and Amlodipine were stopped to allow permissive HTN. Will start a low dose of B-christiano, which may be used to control BP from today. This plan was explained to the patient in detail. (6) Elevated lactic acid level Assessment/Plan: Presumably from volume depletion as there are no signs of infection clinically (7) Thyroid mass of unclear etiology Assessment/Plan: This will need further evaluation, I have not discussed this with her yet, due to her "confusion". - Current Meds Current Meds: Current Medications Generic Name Dose Route Start Last Admin Trade Name Freq PRN Reason Stop Dose Admin Acetaminophen 650 mg 06/16/19 08:08 06/16/19 14:18 Tylenol PO 650 mg Q4HR PRN Administration Pain 1 to 4 Aspirin 325 mg 06/16/19 11:00 06/17/19 08:59 Kelechi PO 325 mg DAILYWM MATTY Administration Famotidine 20 mg 06/16/19 09:00 06/17/19 08:59 Pepcid PO 20 mg BID MATTY Administration Polyethylene Glycol 17 gm 06/17/19 09:00 06/17/19 08:59 Miralax PO 17 gm DAILY MATTY Administration Prochlorperazine Edisylate 10 mg 06/16/19 08:08 06/16/19 17:09 Compazine Inj IVP 10 mg Q6HR PRN Administration Nausea / Vomiting Sodium Chloride 10 ml 06/16/19 08:08 06/17/19 00:40 Normal Saline Flush 0.9% IVP 10 ml PRN PRN Administration NEEDED PER PROVIDER ORDERS Sodium Chloride 10 ml 06/16/19 09:00 06/17/19 00:40 Normal Saline Flush 0.9% IVP 10 ml 0100,0900,1700 MATTY Administration - Lab Result Fish Bone Diagrams: 06/17/19 06:29 06/17/19 06:29 - Additional Planning My Orders: My Active Orders 06/16/19 09:00 Famotidine [Pepcid] 20 mg PO BID Sodium Chloride Flush 0.9% [Normal Saline Flush 0.9%] 10 ml IVP 0100,0900,1700 06/16/19 09:06 BRAIN WO [MRI] Routine 06/16/19 11:00 Aspirin [Kelechi] 325 mg PO DAILYWM 06/16/19 16:21 Diclofenac Sodium [Diclo Gel] 1 applic TOP PRN PRN 06/16/19 Lunch Soft Mechanical Diet [DIET] 06/17/19 09:00 Cholestyramine/Aspartame [Prevalite Packet] 4 gm PO DAILY Polyethylene Glycol 3350 [Miralax] 17 gm PO DAILY 06/18/19 05:00 BMP - BASIC METABOLIC PANEL [CHEM] DAILYLAB CBC - COMP BLD CT W/AUTO DIFF [HEME] DAILYLAB Subjective - Subjective Patient Reports: Feeling Better Nursing Reports: Other (She is able to read and understand) Objective Vital Signs: Vital Signs - 24 hr 06/16/19 06/16/19 06/16/19 10:45 16:00 19:20 Temperature 37.0 C 37.0 C Heart Rate 79 Heart Rate [ 73 68 Brachial] Respiratory 18 18 Rate Blood Pressure 130/60 143/61 H [Right Brachial artery] O2 Saturation 96 93 06/17/19 06/17/19 06/17/19 00:00 05:30 08:13 Temperature 36.9 C 36.7 C 36.7 C Heart Rate Heart Rate [ 75 78 64 Brachial] Respiratory 20 16 16 Rate Blood Pressure 114/61 132/70 H 147/59 H [Right Brachial artery] O2 Saturation 93 93 Oxygen O2 Source Room air I&O (Last 24 Hrs): Intake and Output Totals x24h 06/15/19 06/16/19 06/17/19 23:59 23:59 23:59 Intake Total 1530 360 Balance 1530 360 General: Alert, Oriented x3 HEENT: Mucous membr. moist/pink Neck: Supple Neuro: Non Focal Cardiovascular: Regular rate, No murmurs Respiratory: No respiratory distress Abdomen: Soft Extremities: No edema - Results Results: Laboratory Results WBC 6.3 x10^3/uL (4.8-10.8) 06/17/19 06:29 RBC 4.28 10^6/uL (4.20-5.40) 06/17/19 06:29 Hgb 13.2 g/dL (12.0-16.0) 06/17/19 06:29 Hct 40.7 % (37.0-47.0) 06/17/19 06:29 MCV 95.1 fL (81.0-99.0) 06/17/19 06:29 MCH 30.8 pg (27.0-31.0) 06/17/19 06:29 MCHC 32.4 g/dL (32.0-36.0) 06/17/19 06:29 RDW 13.2 % (12.0-15.0) 06/17/19 06:29 Plt Count 250 10^3/uL (130-450) 06/17/19 06:29 MPV 10.9 fL (7.9-10.8) H 06/17/19 06:29 Neut # (Auto) 3.8 10^3/uL (1.5-6.6) 06/17/19 06:29 Lymph # (Auto) 1.6 10^3/uL (1.5-3.5) 06/17/19 06:29 [place] # (Auto) 0.6 10^3/uL (0.0-1.0) 06/17/19 06: Eos # (Auto) 0.2 10^3/uL (0.0-0.7) 06/17/19 06: Baso # (Auto) 0.1 10^3/uL (0.0-0.1) 06/17/19 06:29 Absolute Nucleated RBC 0.00 x10^3/uL 06/17/19 06: Nucleated RBC % 0.0 /100WBC 06/17/19 06: PT 11.4 secs (9.9-12.6) 06/16/19 05:13 INR 1.0 (0.8-1.2) 06/16/19 05:13 Sodium 139 mmol/L (135-145) 06/17/19 06:29 Potassium 3.8 mmol/L (3.5-5.0) 06/17/19 06:29 Chloride 107 mmol/L (101-111) 06/17/19 06:29 Carbon Dioxide 26 mmol/L (21-32) 06/17/19 06:29 Anion Gap 6.0 (6-13) 06/17/19 06:29 BUN 15 mg/dL (6-20) 06/17/19 06:29 Creatinine 0.7 mg/dL (0.4-1.0) 06/17/19 06:29 Estimated GFR (MDRD) 80 (>89) L 06/17/19 06:29 Glucose 95 mg/dL (70-100) 06/17/19 06:29 Lactic Acid 2.4 mmol/L (0.5-2.2) H 06/16/19 07:56 Calcium 8.5 mg/dL (8.5-10.3) 06/17/19 06:29 Phosphorus 3.5 mg/dL (2.5-4.6) 06/16/19 20:49 Magnesium 2.1 mg/dL (1.7-2.8) 06/17/19 06:29 Total Bilirubin 0.8 mg/dL (0.2-1.0) 06/16/19 05:13 AST 23 IU/L (10-42) 06/16/19 05:13 ALT 32 IU/L (10-60) 06/16/19 05:13 Alkaline Phosphatase 58 IU/L (42-121) 06/16/19 05:13 Troponin I High Sens 5.2 pg/mL (2.3-14.8) 06/16/19 05:13 Total Protein 6.9 g/dL (6.7-8.2) 06/16/19 05:13 Albumin 3.9 g/dL (3.2-5.5) 06/16/19 05:13 Globulin 3.0 g/dL (2.1-4.2) 06/16/19 05:13 Albumin/Globulin Ratio 1.3 (1.0-2.2) 06/16/19 05:13 Triglycerides 147 mg/dL (-149) 06/17/19 06:29 Cholesterol 125 mg/dL (-199) 06/17/19 06:29 LDL Cholesterol, Calc 59 mg/dL (-129) 06/17/19 06:29 VLDL Cholesterol 29 mg/dL 06/17/19 06:29 HDL Cholesterol 37 mg/dL (60-) L 06/17/19 06:29 LDL/HDL Ratio 1.6 (<4.4) 06/17/19 06:29 Cholesterol/HDL Ratio 3.4 (<4.4) 06/17/19 06:29 Lipase 22 U/L (22-51) 06/16/19 05:13 TSH 0.95 uIU/mL (0.34-5.60) 06/17/19 06:29 Urine Color YELLOW 06/16/19 06:37 Urine Clarity CLEAR (CLEAR) 06/16/19 06:37 Urine pH 5.0 PH (5.0-7.5) 06/16/19 06:37 Ur Specific [place] >=1.030 (1.002-1.030) H 06/16/19 06:37 Urine Protein NEGATIVE mg/dL (NEGATIVE) 06/16/19 06:37 Urine Glucose (UA) NEGATIVE mg/dL (NEGATIVE) 06/16/19 06:37 Urine Ketones NEGATIVE mg/dL (NEGATIVE) 06/16/19 06:37 Urine Occult Blood NEGATIVE (NEGATIVE) 06/16/19 06:37 Urine Nitrite NEGATIVE (NEGATIVE) 06/16/19 06:37 Urine Bilirubin NEGATIVE (NEGATIVE) 06/16/19 06:37 Urine Urobilinogen 0.2 (NORMAL) E.U./dL (NORMAL) 06/16/19 06:37 Ur Leukocyte Esterase NEGATIVE (NEGATIVE) 06/16/19 06:37 Ur Microscopic Review NOT INDICATED 06/16/19 06:37 Urine Culture Comments NOT INDICATED 06/16/19 06:37 Urine Opiates Screen NEGATIVE (NEGATIVE) 06/16/19 06:37 Ur Oxycodone Screen NEGATIVE (NEGATIVE) 06/16/19 06:37 Urine Methadone Screen NEGATIVE (NEGATIVE) 06/16/19 06:37 Ur Propoxyphene Screen NEGATIVE (NEGATIVE) 06/16/19 06:37 Ur Barbiturates Screen NEGATIVE (NEGATIVE) 06/16/19 06:37 Ur Tricyclics Screen NEGATIVE (NEGATIVE) 06/16/19 06:37 Ur Phencyclidine Scrn NEGATIVE (NEGATIVE) 06/16/19 06:37 Ur Amphetamine Screen NEGATIVE (NEGATIVE) 06/16/19 06:37 U Methamphetamines Scrn NEGATIVE (NEGATIVE) 06/16/19 06:37 U Benzodiazepines Scrn NEGATIVE (NEGATIVE) 06/16/19 06:37 Urine Cocaine Screen NEGATIVE (NEGATIVE) 06/16/19 06:37 U Cannabinoids Screen NEGATIVE (NEGATIVE) 06/16/19 06:37 Ethyl Alcohol < 5.0 mg/dL 06/16/19 05:13 - Procedures Procedures: Procedures TU REMOV URETER OBSTRUCT (10/15/13) URETERAL CATHETERIZATION (10/15/13)
[2019-06-17] MEDS: METOPROLOL SUCCINATE 25 MG TABLET PO SCH (13:30)
[2019-06-17] MEDS: ASPARTAME PO SCH (13:50)
[2019-06-17] MEDS: CHOLESTYRAMINE PO SCH (13:50)
[2019-06-18 05:21] LABS: BASOPHILS # (AUTO) 0.1 10^3/uL (0.0-0.1); BASOPHILS % (AUTO) 0.9 %; EOSINOPHILS # (AUTO) 0.3 10^3/uL (0.0-0.7); EOSINOPHILS % (AUTO) 3.2 %; HGB - HEMOGLOBIN 13.3 g/dL (12.0-16.0); LYMPHOCYTES # (AUTO) 1.7 10^3/uL (1.5-3.5); LYMPHOCYTES % (AUTO) 20.5 %; MEAN CORPUSCULAR HEMOGLOBIN 31.1 pg (27.0-31.0); MEAN CORPUSCULAR HGB CONC 33.2 g/dL (32.0-36.0); MEAN CORPUSCULAR VOLUME 93.9 fL (81.0-99.0); MEAN PLATELET VOLUME 10.7 fL (7.9-10.8); MONOCYTES # (AUTO) 0.8 10^3/uL (0.0-1.0); MONOCYTES % (AUTO) 9.6 %; NEUTROPHILS # (AUTO) 5.4 10^3/uL (1.5-6.6); NEUTROPHILS % (AUTO) 65.3 %; PLT - PLATELET COUNT 257 10^3/uL (130-450); RED BLOOD COUNT 4.27 10^6/uL (4.20-5.40); RED CELL DISTRIBUTION WIDTH 13.2 % (12.0-15.0); WHITE BLOOD COUNT 8.2 x10^3/uL (4.8-10.8)
[2019-06-18 05:31] LABS: CALCIUM 8.9 mg/dL (8.5-10.3); CREATININE 0.7 mg/dL (0.4-1.0)
[2019-06-18] MEDS: SODIUM CHLORIDE FLUSH 0.9% 10 ML SYRINGE IVP SCH ×2 (05:54→09:07)
[2019-06-18] MEDS ORDERED: ONDANSETRON ODT 4 MG TABLET TL PRN (08:42)
--- NOTE | 2019-06-18 08:56 | Discharge Plan ---
Discharge Plan Problem Reviewed?: Yes Disposition: Home, Self Care Condition: Stable Prescriptions: Ondansetron Odt [Zofran Odt] 4 mg TL Q6HR PRN #30 tablet PRN Reason: Nausea / Vomiting Aspirin [Aspirin EC] 81 mg PO DAILY #30 tablet. Clopidogrel [Plavix] 75 mg PO DAILY #30 tablet Metoprolol Succinate [Toprol Xl] 25 mg PO DAILY #30 tablet Diet: Low Sodium Activity Restrictions: Activity as Tolerated Shower Restrictions: No Driving Restrictions: Yes (Vision changes, therefore clearance by MD needed to resume driving) Instruction Topics: Clopidogrel Bisulfate Oral tablet, Metoprolol tablets, Ondansetron oral dissolving tablet, Aspirin ASA oral tablets, Tinnitus, Dizziness Vertigo Balance Safety, Atrial Fibrillation Health Concerns: You were admitted to evaluate stroke symptoms of vision changes and confusion. There is a history of tinnitus and poor balance that has never been evaluated, you said. You were in an irregular heart rhythm, called Atrial fib. Plan of Treatment: Your blood pressure medicines were changed, in order to manage the Afib and BP: new Toprol medication and stop the Benazipril and Amlodipine. Your aspirin dose was changed for managing the stroke: baby aspirin plus new Plavix. There is a new prescription for Zofran, to use as needed for nausea. All these new prescriptions [facility]. Resume your management for diarrhea with the Prevalite powder and Imodium as needed and the Prilosec. You need to see your PCP in the next 5-7 days and get referral to a Neurologist and/or Neuro-Opthalmologist. You need outpatient evaluation, management and follow-up by a Neurologist for the stroke and tinnitus and imbalance. Care Goals: Improvement in stroke symptoms and tinnitus and imbalance are the goals. Assessment: The patient is in agreement with the plan. Additional Instructions or Follow Up instructions: You may NOT DRIVE a vehicle. You need clearance by your Primary Care Provider or a Neurologist to resume driving. If you have new or worsening symptoms, call your Primary Care Provider or come to the ER. No Smoking: If you smoke, Please STOP! Call for help. Follow-up with: Shameka Velasquez MD [Primary Care Provider] -
[2019-06-18] MEDS ORDERED: CLOPIDOGREL 75 MG TABLET PO SCH (09:00)
[2019-06-18] MEDS ORDERED: ASPIRIN EC 81 MG TABLET PO SCH (09:00)
[2019-06-18] MEDS: METOPROLOL SUCCINATE 25 MG TABLET PO SCH (09:05)
[2019-06-18] MEDS: FAMOTIDINE 20 MG TABLET PO SCH (09:05)
[2019-06-18] MEDS: POLYETHYLENE GLYCOL 3350 17 GM PACKET PO SCH (09:07)
[2019-06-18] MEDS ORDERED: LOPERAMIDE 2 MG CAPSULE PO PRN (09:30)
[2019-06-18] MEDS: CHOLESTYRAMINE PO SCH (09:55)
[2019-06-18] MEDS: ASPARTAME PO SCH (09:55)
[2019-06-18 12:39] VITALS: BP 150/58
--- NOTE | 2019-06-20 17:15 | DISCHARGE SUMMARY ---
Physician: Yasmin Macedo MD DATE OF ADMISSION: 06/16/2019 DATE OF DISCHARGE: 06/18/2019 HISTORY OF PRESENT ILLNESS: This is an 83-year-old white female with a history of hypertension, intermittent dizziness that is severe enough that she leans on furniture or uribe in her house, history of tinnitus that has not been evaluated, GERD, hiatal hernia, diverticulitis in the past, DJD and a heart murmur. Patient presented with confusion and being unable to understand writing, which occurred when she awoke in the middle of the night and tried to read a book. She called an ambulance with her [facility] after taking 2 aspirin. She told the paramedics that she was confused. She was brought to the ER by ambulance. In the emergency room, she was found to have new onset atrial fibrillation with rapid rate of 130 to 140 and received IV diltiazem. Head CT was done that did not show any hemorrhage or stroke and [facility] was called and advised that she have a CT angio to look for any major vascular occlusions, which was done and none were found. Neurology at [facility] therefore recommended that she be admitted here for management of a stroke. Her significant findings in the ER on the neuro exam were that of right-sided gaze neglect and inability to understand the written word and forgetfulness, but a normal motor and sensory exam. DISCHARGE DIAGNOSES 1. Acute cerebrovascular accident. 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 She underwent a resting Echo, which showed no intracardiac clot or intracardiac shunt and a normal LVEF. Patient had PT ordered and was able to ambulate without requiring support of furniture or uribe, and balance was good on that day. Her problem with reading the written word and right-sided neglect improved by the second day as per testing done by the speech therapist. Her home adult dose aspirin was changed to baby aspirin plus Plavix. 2. New onset of atrial fibrillation. The IV diltiazem in the ER resulted in conversion to sinus rhythm after several hours. Patient had been on adult dose aspirin at home. Her CHADS score was 3 (hypertension, age over 79 and stroke), but using anticoagulation in the acute stroke phase was risky for converting her stroke to a hemorrhagic stroke. She was therefore discharged on baby aspirin and Plavix and on new Toprol for suppressing atrial fibrillation recurrence. 3. Paroxysmal atrial fibrillation with rapid ventricular response. Managed as in # 2. 4. Paroxysmal supraventricular tachycardia. She also had a paroxysmal long run of SVT noted when she was on telemetry after having converted to sinus rhythm. She was asymptomatic with this. Her TSH was 0.95, ruling out hyperthyroidism. Patient should have further cardiac testing with a stress test and/or cardiology followup. 5. Elevated lactic acid level. At admission, she had a lactic acid level of 2.4 with no signs of infection clinically. It was felt to be from possible dehydration, and the repeat lactic acid level was 1.0, later during the hospital stay. 6. Dizziness. Patient described years of occasional vertigo and lightheadedness that required her to use support of furniture or uribe. This has never been evaluated. She was strongly advised to have a neurology evaluation for this as well as followup of the stroke. 7. Diarrhea. On her last day, patient had several loose stools and on that day reported that she was on "enzymes" and p.r.n. Imodium because this would happen often intermittently. 8. History of hypertension. Patient was allowed permissive high blood pressure during this acute stroke. Her home medication of Benazepril 20 mg daily and Amlodipine 10 mg daily were stopped. These were not restarted and in their place, she was sent home on Toprol in order to treat the atrial fibrillation and SVT (above). Follow up with her PCP and/or clinical review nurse for adjustment of medications is advised. 10. Thyroid mass, unclear etiology. This patient's admission workup included imaging of the neck, which had an incidental finding: The right thyroid lobe is enlarged and demonstrates a peripheral enhancing mass, which measures up to 2.5 cm in size and cannot be distinguished by CT from benign or malignant thyroid disease. A smaller thyroid nodule was seen on the left. There are borderline lymph nodes seen in the right lower neck that could be reactive, or neoplastic. These findings were not discussed with patient while here and require further outpatient followup and management. 11. Abnormal CT of head. An incidental finding was also present on head CT: There is nonspecific small amounts of soft tissue gas within the left pterygopalatine fossa. Further assessment was recommended with maxillofacial CT, which will require outpatient evaluation and discussion with patient. LABS AND IMAGING: Reviewed and summarized above. CONDITION AT DISCHARGE: Stable. PHYSICAL EXAMINATION VITAL SIGNS: Blood pressure 150/58, heart rate 65 in sinus rhythm, afebrile, room air saturation 96%. HEENT: Grossly unremarkable. NECK: Without JVD or carotid bruits. CHEST: Clear. HEART: Normal heart sounds. ABDOMEN: Soft, nontender. EXTREMITIES: No edema. NEUROLOGIC: Grossly intact. MEDICATIONS AT THE TIME OF DISCHARGE 1. Toprol-XL 25 mg daily. 2. Imodium q.i.d. p.r.n. 3. Plavix 75 mg daily. 4. Baby aspirin daily. 5. Zofran sublingual 4 mg q.6 hours p.r.n. 6. Psyllium fiber p.r.n. 7. Omeprazole 40 mg daily. 8. Diclofenac gel topically daily p.r.n. 9. Prevalite 4 g p.o. daily. Amlodipine and Benazepril have been discontinued. CODE STATUS: FULL CODE. FOLLOWUP: She was advised to see her PCP in 1 week and followup for referral to Neurology for evaluation of her dizziness, tinnitus, new stroke, and findings by CT scan in the pterygopalatine fossa (requiring followup imaging with maxillofacial CT). Also, she needs work-up of the thyroid mass. Also, she needs Cardiology management and follow-up. Time required to complete this entire discharge, chart review, discussion with patient and daughter, prescriptions, dictation: 65 minutes. cc: Shameka Velasquez MD TD: 06/20/2019 16:52 MTDD
== END 2019-06-18 14:00 | disposition home or self-care (01) | DRG 65 ==
LOC: EDUNIT# → ED 04:57 → UNDOADMIN 08:08 → MS2 08:08 → UNDODISIN 06-18 14:00
PROVIDERS: ADMIT Internal Medicine; ATTEND Internal Medicine
DX: I63.9 Cerebral infarction, unspecified (principal); I48.91 Unspecified atrial fibrillation; G83.21 Monoplegia of upper limb affecting right dominant side; R47.01 Aphasia; H53.9 Unspecified visual disturbance; R29.703 NIHSS score 3; E87.2 Acidosis; I47.1 Supraventricular tachycardia; R53.1 Weakness; H53.8 Other visual disturbances; R35.0 Frequency of micturition; F40.240 Claustrophobia; I48.0 Paroxysmal atrial fibrillation; Z79.1 Long term (current) use of non-steroidal anti-inflammatories (NSAID); R94.6 Abnormal results of thyroid function studies; R94.02 Abnormal brain scan; E86.0 Dehydration; I10 Essential (primary) hypertension; R42 Dizziness and giddiness; H93.19 Tinnitus, unspecified ear; K21.9 Gastro-esophageal reflux disease without esophagitis; K44.9 Diaphragmatic hernia without obstruction or gangrene; M19.90 Unspecified osteoarthritis, unspecified site; R01.1 Cardiac murmur, unspecified; R19.7 Diarrhea, unspecified; Z79.82 Long term (current) use of aspirin
CPT/HCPCS: 36415; 70450; 70496; 70498; 71045; 80048; 80053; 80061; 81003; 83605; 83690; 83735; 84100; 84443; 84484; 85025; 85610; 87040; 93005; 93306; 96365; 96375; 97162; 97164; 99284; 99285; A9270; J0131; Q0162; Q9967; 80306; 80320; 81001; 83721; 87086

== ENCOUNTER 2019-08-30 12:54 | Outpatient (CLI) | payer MEDICARE ==
--- NOTE | 2019-08-31 09:54 | Mammography Report ---
Reason: ROUTINE MAMMO Procedure Date: 08/30/2019 Accession Number: [id number] / [id number] Procedure: MGN - Screening Mammo Dig Bilat CPT Code: Final Report FULL RESULT: EXAM: Screening Mammo Dig Bilat DATE: 08/30/2019 1:25 PM CLINICAL HISTORY: Screening encounter. History of benign right breast biopsy, excisional type. Family history of breast cancer in the mother at the age 75. TECHNIQUE: (B) - Bilateral CC and MLO views were obtained. COMPARISON: 08/29/2018 through 07/26/2011. PARENCHYMAL PATTERN: (D) - The breast(s) demonstrate(s) heterogeneously dense fibroglandular parenchyma. FINDINGS: Seen in the lower right breast 8.1 cm from the nipple on the MLO projection is a increasing asymmetry with question of a partially obscured nodule. The finding localizes 7.5 cm from the nipple in the lateral breast cone on the cc projection. This requires additional spot views, ideally with 3-D mammography and ultrasound for further clarification. Coarse typically benign calcifications are again seen. Postsurgical changes in the right breast are stable. There are no suspicious masses, calcifications, or areas of distortion in the left breast. IMPRESSION: Incomplete examination. BI-RADS category 0. RECOMMENDATION: (ADDMU) - Additional views using both Mammography and Ultrasound recommended. Right breast lower-outer quadrant. BI-RADS CATEGORY: (0) - Incomplete Examination - need additional evaluation. STANDARD QUALIFYING STATEMENTS: 1. This examination was not reviewed with the aid of Computer-Aided Detection (CAD). 2. A negative or benign imaging report should not preclude biopsy if clinically suspicious findings are present. 3. Dense breasts may obscure an underlying neoplasm. 4. This examination was reviewed without the aid of 3D breast imaging (tomosynthesis).
== END 2019-08-30 12:55 | disposition home or self-care (01) ==
LOC: DI.N 12:54
DX: Z12.31 Encounter for screening mammogram for malignant neoplasm of breast (principal); Z80.3 Family history of malignant neoplasm of breast
CPT/HCPCS: 77067

== ENCOUNTER 2019-09-11 09:42 | Outpatient (CLI) | payer MEDICARE ==
--- NOTE | 2019-09-11 13:06 | Mammography Report ---
Reason: ABN MAMMO - RT SPEC VIEWS Procedure Date: 09/11/2019 Accession Number: [id number] / [id number] Procedure: JAKI - Diag Special Views Dig RT CPT Code: Final Report FULL RESULT: EXAM: Diag Special Views Dig RT DATE: 09/11/2019 10:40 AM CLINICAL HISTORY: Diagnostic examination. History of benign excisional type right breast biopsy. The patient is recalled from screening for increasing focal asymmetry in the right breast. TECHNIQUE: (R) - Right CC view is obtained. Right spot CC and right spot MLO as well as LM images are obtained. COMPARISON: 08/30/2019 through 07/26/2011. PARENCHYMAL PATTERN: (D) - The breast(s) demonstrate(s) heterogeneously dense fibroglandular parenchyma. FINDINGS: The previously seen increasing asymmetry dissipates with spot views. Coarse typically benign calcifications are noted. There are no suspicious masses, calcifications, or areas of distortion. IMPRESSION: Benign findings. BI-RADS category 2. RECOMMENDATION: (ANNUAL) - Recommend routine annual screening mammography. BI-RADS CATEGORY: (2) - Benign Findings. STANDARD QUALIFYING STATEMENTS: 1. This examination was not reviewed with the aid of Computer-Aided Detection (CAD). 2. A negative or benign imaging report should not preclude biopsy if clinically suspicious findings are present. 3. Dense breasts may obscure an underlying neoplasm. 4. This examination was reviewed with the aid of 3D breast imaging (tomosynthesis).
== END 2019-09-11 09:43 | disposition home or self-care (01) ==
LOC: DI 09:42
PROVIDERS: ATTEND Internal Medicine
DX: R92.8 Other abnormal and inconclusive findings on diagnostic imaging of breast (principal)

== ENCOUNTER 2019-10-30 11:44 | Outpatient (CLI) | payer MEDICARE ==
--- NOTE | 2019-10-31 14:10 | Ultrasound Report ---
Reason: SINGLE THYROID NODULE Procedure Date: 10/30/2019 Accession Number: [id number] / [id number] Procedure: US - Head or Neck Soft Tissue CPT Code: Final Report FULL RESULT: EXAM: THYROID ULTRASOUND EXAM DATE: 10/30/2019 12:35 PM. CLINICAL HISTORY: Single thyroid nodule. COMPARISON: HEAD ANGIO 06/16/2019 6:51 AM. TECHNIQUE: Real time sonographic imaging of the thyroid was performed by the hotel yardperson. Multiple telemarketing sales representative static images were saved for review. FINDINGS: THYROID GLAND: Right Lobe: 5.5 x 2.4 x 1.7 cm, volume 11.7 cc. Normal background echotexture. Right Lobe Nodules: Mid/lower pole lobulated circumscribed mixed hypoechoic and isoechoic nodule 1.5 x 2.2 x 3.3 cm. Internal vascularity. Intermediate suspicion. FNA recommended. Left Lobe: 4.6 x 1.6 x 1.4 cm, volume 5.4 cc. Normal background echotexture. Left Lobe Nodules: Medial midpole hyperechoic nodule 0.6 x 0.5 x 0.7 cm. Circumscribed and predominantly solid. Vascular. Low suspicion. Midpole mixed solid and cystic nodule 1.0 x 1.1 x 1.2 cm. Low suspicion. Vascular. Lower pole nodule 0.6 x 0.7 x 0.8 cm. Mostly solid and vascular with circumscribed margin. Low suspicion. Isthmus: 0.3 cm AP. Isthmic Nodules: None. LYMPH NODES: No adenopathy demonstrated in the central or lateral compartment. OTHER: None. IMPRESSION: Enlarged intermediate suspicion nodule right thyroid lobe. FNA recommended. Low suspicion nodules in the left thyroid lobe, individually measuring less than 1.5 cm. Management recommendations are based on 2015 [place] [employer] Management Guidelines for Adult Patients with Thyroid Nodules and Differentiated Thyroid Cancer. RADIA
== END 2019-10-30 11:45 | disposition home or self-care (01) ==
LOC: DI 11:44
PROVIDERS: ATTEND Internal Medicine
DX: E04.2 Nontoxic multinodular goiter (principal)
CPT/HCPCS: 76536

== ENCOUNTER 2019-11-30 11:08 | Outpatient (CLI) | payer MEDICARE ==
[2019-11-30] MEDS ORDERED: BUFFERED LIDOCAINE 10 ML SYRINGE ONE (11:13)
[2019-11-30] MEDS ORDERED: BUFFERED LIDOCAINE 10 ML SYRINGE IU ONE (13:14)
--- NOTE | 2019-11-30 16:42 | Ultrasound Report ---
Reason: THYROID NODULE Procedure Date: 11/30/2019 Accession Number: [id number] / [id number] Procedure: US - FNA Bx w/US Gnd les CPT Code: 11162 Final Report FULL RESULT: EXAM: Thyroid Fine Needle Aspiration EXAM DATE: 11/30/2019 01:01 PM. CLINICAL HISTORY: THYROID NODULE. COMPARISON: None. TECHNIQUE: The risks, benefits, and alternatives of the procedure were discussed with the patient. All questions were answered. Written and verbal consent were obtained. A site was marked over the right lower pole nodule in question under live sonographic evaluation, then subsequently prepped and draped in a sterile manner. Local anesthesia was performed with 1% lidocaine. A total of 4 22 gauge fine-needle aspirates/passes were performed through the right lower pole nodule in question, then passed to the web applications programmer for preparation. Estimated blood loss was 0 mL. Sonographic images demonstrate needle placement within right lower pole nodule in question. FINDINGS IMPRESSION: Right inferior thyroid nodule fine-needle biopsy. RADIA
== END 2019-11-30 11:09 | disposition home or self-care (01) ==
LOC: DI 11:08
PROVIDERS: ATTEND Internal Medicine
DX: E04.1 Nontoxic single thyroid nodule (principal)
CPT/HCPCS: 10005

== ENCOUNTER 2019-12-31 08:19 | Outpatient (CLI) | payer MEDICARE | END 2019-12-31 08:20 | disposition critical access hospital (66) | LOC: EMS 08:19 | PROVIDERS: ATTEND Surgery | DX: R41.0 Disorientation, unspecified (principal); R53.1 Weakness | CPT/HCPCS: A0425; A0429 ==

== ENCOUNTER 2019-12-31 08:59 | Emergency (ER) | payer MEDICARE ==
--- NOTE | 2019-12-31 09:12 | ED Physician Documentation ---
PD HPI ALTERED MENTAL STATUS - Stated complaint Stated Complaint: AMS - Chief complaint Chief Complaint: Neuro - History obtained from History obtained from: Patient - History of Present Illness Timing - onset: Today Timing - duration: Minutes Timing - details: Abrupt onset, Now resolved Quality / character: Confused Associated symptoms: Urinary sx. No: Fever, Headache, Stiff neck, Dyspnea, Cough, NVD, General weakness, Focal weakness, Seizure activity, Syncope Contributing factors: Anticoagulated Basline status: Alert and oriented X 3, Ambulatory, Independent Similar symptoms before: Diagnosis (TIA) Recently seen: Not recently seen - Additional information Additional information: 84-year-old female with history of atrial fibrillation on Eliquis and hy pertension has had prior TIA with similar effects. This morning she woke up and felt confused. She has no focal neurologic deficit and is currently alert and oriented x4. She is does state that she has been having some urinary frequency but not dysuria and she has not had fever. She has not been sick otherwise. She has been confined to her house for more than 14 days and is no exposure to coronavirus. She is previously had a similar episode several years ago she had a complete work-up which did not reveal any specific findings. Review of Systems Constitutional: denies: Fever, Chills, Myalgias, Fatigue Eyes: denies: Decreased vision Ears: denies: Ear pain Nose: denies: Rhinorrhea / runny nose, Congestion Throat: denies: Dental pain / toothache, Sore throat Cardiac: denies: Chest pain / pressure, Palpitations Respiratory: denies: Dyspnea, Cough GI: denies: Abdominal Pain, Nausea, Vomiting : reports: Frequency. denies: Dysuria Skin: denies: Rash Musculoskeletal: denies: Neck pain, Back pain, Extremity pain Neurologic: reports: Confused. 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 06/18/19 Benazepril HCl 20 mg PO DAILY 06/18/19 06/18/19 Clopidogrel [Plavix] 75 mg PO DAILY #30 tablet 06/18/19 Loperamide [Imodium] 2 mg PO QID PRN capsule 06/18/19 Metoprolol Succinate [Toprol Xl] 25 mg PO DAILY #30 tablet 06/18/19 Ondansetron Odt [Zofran Odt] 4 mg TL Q6HR PRN #30 tablet 06/18/19 Psyllium Husk [Fiber] 3 cap PO BID 06/18/19 - Allergies Allergies/Adverse Reactions: Allergies Allergy/AdvReac Type Severity Reaction Status Date / Time latex Allergy Intermediate swelling Verified 12/31/19 09:08 ascorbic acid Allergy Unknown Unknown Verified 12/31/19 09:08 Penicillins AdvReac Intermediate Rash Verified 12/31/19 09:08 Sulfa (Sulfonamide AdvReac Intermediate Itching Verified 12/31/19 09:08 Antibiotics) - Social History Does the pt smoke?: No Smoking Status: Never smoker Does the pt drink ETOH?: No Does the pt have substance abuse?: No - Immunizations Immunizations are current?: Yes PD ED PE NORMAL - Vitals Vital signs reviewed: Yes (hypertensive mild ) - General General: Alert and oriented X 3, No acute distress, Well developed/nourished - HEENT HEENT: Atraumatic, PERRL, EOMI - Neck Neck: Supple, no meningeal sign, No bony TTP - Cardiac Cardiac: RRR, No murmur - Respiratory Respiratory: No respiratory distress, Clear bilaterally - Abdomen Abdomen: Soft, Non tender - Back Back: No CVA TTP, No spinal TTP - Derm Derm: Normal color, Warm and dry, No rash - Extremities Extremities: No deformity, No edema, No calf tenderness / cord - Neuro Neuro: Alert and oriented X 3, tank terminal gauger 2-12 intact, No motor deficit, No sensory deficit, Normal speech Eye Opening: Spontaneous Motor: Obeys Commands Verbal: Oriented GCS Score: 15 - Psych Psych: Normal mood, Normal affect NIHSS - Time Time: 09:14 - Level of Consciousness Level of consciousness: (0) Alert, Keenly responsive LOC Questions: (0) Answers both Q's correct LOC Commands: (0) Performs both correctly - Gaze Best Gaze: (0) Normal - Visual Visual: (0) No loss - Facial Palsy Facial Palsy: (0) Normal, symmetrical movement - Motor Arms (both separate) Motor Arm (right): (0) No drift Motor Arm (left): (0) No drift - Motor Legs (both separate) Motor Leg (right): (0) No drift Motor Leg (left): (0) No drift - Limb Ataxia Limb Ataxia: (0) Absent - Sensory Sensory: (0) Normal - Best Language Best Language: (0) No aphasia - Dysarthria Dysarthria: (0) Normal - Extinction and Inattention (formally neg Extinction and inattention: (0) No abnormality - Total Score/Results Total Score/Result: 0 Results - Vitals Vitals: Vital Signs - 24 hr 12/31/19 12/31/19 09:08 10:19 Temperature 37 C Heart Rate 66 61 Respiratory 14 15 Rate Blood Pressure 173/71 H 169/58 H O2 Saturation 100 98 Oxygen O2 Source Room air - EKG (time done) 0957 Rate: Rate (enter#) (59) Rhythm: NSR Compare to prior EKG: Changed from prior EKG (SPT 06-16-2019 the rate has decreased the rhythm has changed from afib to sinus. ) Computer interpretation: Agree with computer - Labs Labs: Laboratory Tests 12/31/19 12/31/19 12/31/19 09:32 09:32 09:32 WBC 8.9 RBC 4.77 Hgb 14.9 Hct 45.7 MCV 95.8 MCH 31.2 H MCHC 32.6 RDW 13.0 Plt Count 304 MPV 9.9 Neut # (Auto) 6.9 H Lymph # (Auto) 1.2 L [place] # (Auto) 0.6 Eos # (Auto) 0.1 Baso # (Auto) 0.1 Absolute Nucleated RBC 0.00 Nucleated RBC % 0.0 Sodium 136 Potassium 4.0 Chloride 103 Carbon Dioxide 25 Anion Gap 8.0 BUN 12 Creatinine 0.6 Estimated GFR (MDRD) 95 Glucose 107 H Lactic Acid 1.1 Calcium 8.9 Total Bilirubin 0.8 AST 19 ALT 31 Alkaline Phosphatase 70 Total Protein 7.1 Albumin 3.9 Globulin 3.2 Albumin/Globulin Ratio 1.2 Lipase 24 Urine Color Urine Clarity Urine pH Ur Specific [place] Urine Protein Urine Glucose (UA) Urine Ketones Urine Occult Blood Urine Nitrite Urine Bilirubin Urine Urobilinogen Ur Leukocyte Esterase Ur Microscopic Review Urine Culture Comments 12/31/19 09:32 WBC RBC Hgb Hct MCV MCH MCHC RDW Plt Count MPV Neut # (Auto) Lymph # (Auto) [place] # (Auto) Eos # (Auto) Baso # (Auto) Absolute Nucleated RBC Nucleated RBC % Sodium Potassium Chloride Carbon Dioxide Anion Gap BUN Creatinine Estimated GFR (MDRD) Glucose Lactic Acid Calcium Total Bilirubin AST ALT Alkaline Phosphatase Total Protein Albumin Globulin Albumin/Globulin Ratio Lipase Urine Color YELLOW Urine Clarity CLEAR Urine pH 6.0 Ur Specific [place] 1.025 Urine Protein NEGATIVE Urine Glucose (UA) NEGATIVE Urine Ketones NEGATIVE Urine Occult Blood TRACE-INTA Urine Nitrite NEGATIVE Urine Bilirubin NEGATIVE Urine Urobilinogen 0.2 (NORMAL) Ur Leukocyte Esterase NEGATIVE Ur Microscopic Review NOT INDICATED Urine Culture Comments NOT INDICATED - Rads (name of study) CT head without Radiology: Prelim report reviewed (Impression: No CT evidence of new acute intracranial abnormality.), EMP read indepedently, See rad report Procedures - IVC sono (time) 0930 Bedside IVC sono: IVC measures (cm) (1.79), IVC collapsed c insp (cm) (1.15), Euvolemia PD MEDICAL DECISION MAKING - ED course Complexity details: reviewed old records, reviewed results, re-evaluated patient, considered differential, d/w patient ED course: 84-year-old female with history of atrial fibrillation and hypertension has developed a episode of confusion this is been unwitnessed and the patient describes it as difficulty dealing with her checkbook. She is now without confusion appears well has a nonfocal neurologic exam and no specific findings on laboratory and imaging procedures. She has had prior complete work-up for TIA. There is no new or specific therapy we will be able to add to the patient's regimen. Departure - Departure Disposition: Home, Self Care Clinical Impression: Hx of essential hypertension, TIA (transient ischemic attack) Condition: Stable Instructions: ED HTN Established, ED Transient Ischemic Attack Follow-Up: Shameka Velasquez MD [Primary Care Provider] -
--- NOTE | 2019-12-31 09:43 | CT Report ---
Reason: confusion Procedure Date: 12/31/2019 Accession Number: [id number] / [id number] Procedure: CT - Head W/O Stroke Protocol CPT Code: Final Report FULL RESULT: EXAM: CT HEAD EXAM DATE: 12/31/2019 09:18 AM. CLINICAL HISTORY: Confusion and disorientation. History of TIA. COMPARISON: HEAD W/O 06/16/2019 5:25 AM. TECHNIQUE: Multiaxial CT images were obtained from the foramen magnum to the vertex. Reformats: Sagittal and coronal. IV contrast: None. In accordance with CT protocol optimization, one or more of the following dose reduction techniques were utilized for this exam: automated exposure control, adjustment of mA and/or KV based on patient size, or use of iterative reconstructive technique. FINDINGS: Stable aged appearance of the brain. No evidence for acute hemorrhage, stroke or hydrocephalus, ASPECTS 10. No acute calvarial defect. As far as visualized, grossly clear paranasal sinuses and mastoids. Cavernous carotid artery atherosclerotic calcifications. IMPRESSION: No CT evidence of new or acute intracranial abnormality. RADIA The critical test notification system was initiated by Dr. Nilay Swain at 09:37 AM on 12/31/2019. The above critical test findings were discussed with Thanh Resendiz by Dr. Nilay Swain at 09:41 AM on 12/31/2019.
[2019-12-31 09:45] LABS: BASOPHILS # (AUTO) 0.1 10^3/uL (0.0-0.1); BASOPHILS % (AUTO) 0.8 %; BILIRUBIN,URINE NEGATIVE (NEGATIVE); EOSINOPHILS # (AUTO) 0.1 10^3/uL (0.0-0.7); EOSINOPHILS % (AUTO) 1.3 %; GLUCOSE, URINE (UA) NEGATIVE (NEGATIVE); HGB - HEMOGLOBIN 14.9 g/dL (12.0-16.0); KETONES,URINE (UA) NEGATIVE (NEGATIVE); LEUKOCYTE ESTERASE, URINE NEGATIVE (NEGATIVE); LYMPHOCYTES # (AUTO) 1.2 10^3/uL (1.5-3.5); LYMPHOCYTES % (AUTO) 13.8 %; MEAN CORPUSCULAR HEMOGLOBIN 31.2 pg (27.0-31.0); MEAN CORPUSCULAR HGB CONC 32.6 g/dL (32.0-36.0); MEAN CORPUSCULAR VOLUME 95.8 fL (81.0-99.0); MEAN PLATELET VOLUME 9.9 fL (7.9-10.8); MONOCYTES # (AUTO) 0.6 10^3/uL (0.0-1.0); MONOCYTES % (AUTO) 6.3 %; NEUTROPHILS # (AUTO) 6.9 10^3/uL (1.5-6.6); NEUTROPHILS % (AUTO) 77.4 %; NITRITE,URINE NEGATIVE (NEGATIVE); OCCULT BLOOD,URINE TRACE-INTA (NEGATIVE); PLT - PLATELET COUNT 304 10^3/uL (130-450); PROTEIN,URINE NEGATIVE (NEGATIVE); RED BLOOD COUNT 4.77 10^6/uL (4.20-5.40); UROBILINOGEN,URINE 0.2 (NORMAL) E.U./dL (NORMAL); WHITE BLOOD COUNT 8.9 x10^3/uL (4.8-10.8)
[2019-12-31 09:50] LABS: CLARITY,URINE CLEAR (CLEAR)
[2019-12-31 09:57] LABS: ALBUMIN 3.9 g/dL (3.2-5.5); ALBUMIN/GLOBULIN RATIO 1.2 (1.0-2.2); BILIRUBIN,TOTAL 0.8 mg/dL (0.2-1.0); CALCIUM 8.9 mg/dL (8.5-10.3); CREATININE 0.6 mg/dL (0.4-1.0); TOTAL PROTEIN 7.1 g/dL (6.7-8.2)
[2019-12-31 10:19] VITALS: BP 169/58
== END 2019-12-31 12:13 | disposition home or self-care (01) ==
LOC: EDUNIT# → ED 08:59
DX: G45.9 Transient cerebral ischemic attack, unspecified (principal); I10 Essential (primary) hypertension; I48.91 Unspecified atrial fibrillation
CPT/HCPCS: 36415; 70450; 80053; 81001; 81003; 83605; 83690; 85025; 87040; 87086; 93005; 99284

== ENCOUNTER 2020-05-27 12:33 | Outpatient (CLI) | payer MEDICARE ==
--- NOTE | 2020-05-27 13:26 | DEXA Report ---
PROCEDURE: Dexa Spine and/or Hip INDICATIONS: OSTEOPOROSIS TECHNIQUE: Dual energy x-ray absorptiometry (DXA) was performed on a [employer] System. Regions measur ed are the AP Spine, femoral neck, and if needed forearm. COMPARISON: . FINDINGS: Lumbar Spine: Bone Mineral Density 1.116 g/cm/cm,T score -0.5, normal Left Hip: Bone Mineral Density 0.720 g/cm/cm,T score -2.3, osteopenia Left Femoral Neck: Bone Mineral Density 0.708 g/cm/cm, T score -2.4, osteopenia (T score greater or equal to -1.0: NORMAL) (T score from -1.1 to -2.4: OSTEOPENIA) (T score less than or equal to -2.5 to: OSTEOPOROSIS) Impression: Osteopenia. Bone mineral density not significantly changed compared to 12/27/2014. Patients with diagnosis of osteoporosis or osteopenia should have regular bone mineral density assess ment. For those eligible for Medicare, routine testing is allowed once every 2 years. Testing frequ ency can be increased for patients who have rapidly progressing disease or for those who are receivin g medical therapy to restore bone mass. Reviewed by: Shital Alonso MD, PhD on 05/27/2020 1:25 PM PDT Approved by: Shital Alonso MD, PhD on 05/27/2020 1:25 PM PDT Station ID: [id number]
== END 2020-05-27 12:34 | disposition home or self-care (01) ==
LOC: DI 12:33
PROVIDERS: ATTEND Internal Medicine
DX: M85.89 Other specified disorders of bone density and structure, multiple sites (principal)
CPT/HCPCS: 77080

== ENCOUNTER 2020-10-21 15:05 | Outpatient (CLI) | payer MEDICARE ==
--- NOTE | 2020-10-22 14:59 | Mammography Report ---
BILATERAL DIGITAL SCREENING MAMMOGRAM 3D/2D: 10/21/2020 CLINICAL: Routine screening. Comparison is made to exams dated: 09/11/2019 mammogram, 08/29/2018 mammogram, 08/30/2019 mammogram, and 08/29/2017 mammogram - [facility]. There are scattered fibroglandular element s in both breasts. There are benign calcifications in both breasts. No significant masses, calcifications, or other findings are seen in either breast. There has been no significant interval change. IMPRESSION: BENIGN There is no mammographic evidence of malignancy. A 1 year screening mammogram is recommended. This exam was interpreted at Station ID: [id number]. NOTE: For mammograms, a report in lay terms will be sent to the patient. Approximately 15% of breast malignancies will not be visualized mammographically. In the management of a palpable breast mass, a negative mammogram must not discourage biopsy of a clinically suspicious lesion. Electronically Signed By: Emma rosales/jony:10/21/2020 17:06:49 ACR BI-RADS Category 2: Benign Finding(s) 3342F PARENCHYMAL PATTERN: (A) - The breast(s) demonstrate(s) scattered fibroglandular densities. BI-RADS CATEGORY: (2) - 2 RECOMMENDATION: (ANNUAL) - Recommend routine annual screening mammography. [id number] 1 year screening LATERALITY: (B)
== END 2020-10-21 15:06 | disposition home or self-care (01) ==
LOC: DI 15:05
PROVIDERS: ATTEND Internal Medicine
DX: Z12.31 Encounter for screening mammogram for malignant neoplasm of breast (principal)

== ENCOUNTER 2021-03-03 12:36 | Outpatient (CLI) | payer MEDICARE ==
--- NOTE | 2021-03-03 15:47 | CT Report ---
PROCEDURE: Abdomen/Pelvis WO INDICATIONS: FLANK PAIN TECHNIQUE: Noncontrast 5 mm thick sections acquired from the diaphragms to the symphysis. 5 mm coronal and sagi ttal reformats were then performed. For radiation dose reduction, the following was used: automated exposure control, adjustment of mA and/or kV according to patient size. COMPARISON: 09/04/2016 FINDINGS: Image quality: Excellent. ABDOMEN: Lung bases: Lung bases are clear. Heart size is normal. Moderate coronary calcification. Moderate t o large size hiatal hernia. Solid organs: Liver and spleen are normal in size. A couple coarse calcifications are seen in the d ome of the liver. Gallbladder is surgically absent. Biliary tree is at the upper limits of normal. N o calcifications. Pancreas is normal in contours. No adrenal nodules. Kidneys are normal in size. There are parapelvic cysts bilaterally, but no definite hydronephrosis. A nonobstructing lower pole intrarenal calcification in the right kidney measures 5 mm. No left intrar enal calcifications. The ureters are of normal caliber. No ureteral calcifications. The urinary bladd er is partially decompressed and appears normal. Peritoneum and bowel: Unenhanced bowel loops demonstrate normal wall thickness and caliber. Divertic ulosis of sigmoid colon. No free fluid or air. Nodes and vessels: No retroperitoneal or mesenteric adenopathy by size criteria. Aorta and inferior vena cava are normal in caliber. Miscellaneous: No ventral hernias. PELVIS: Genitourinary: The uterus is surgically absent. The pelvic floor is lax. Miscellaneous: No inguinal hernias or adenopathy. Bones: No suspicious bony lesions. There are multilevel degenerative disc changes from L3 through S 1 and mild, chronic appearing compression fracture of T9. Moderate to severe degenerative change in t he hip joints, left greater than right. IMPRESSION: 1. Nonobstructing right lower pole intrarenal calcification. 2. No evidence of obstructive uropathy. 3. Sigmoid diverticulosis. 4. Lax pelvic floor. 5. Multilevel lower lumbar disc and endplate degeneration. 6. Moderate to large size hiatal hernia. Reviewed by: Emma Orozco MD on 03/03/2021 3:46 PM PDT Approved by: Emma Orozco MD on 03/03/2021 3:46 PM PDT Station ID: [id number]
== END 2021-03-03 12:37 | disposition home or self-care (01) ==
LOC: DI 12:36
PROVIDERS: ATTEND Internal Medicine
DX: N20.0 Calculus of kidney (principal); K57.30 Diverticulosis of large intestine without perforation or abscess without bleeding; M51.36 Other intervertebral disc degeneration, lumbar region; K44.9 Diaphragmatic hernia without obstruction or gangrene

== ENCOUNTER 2021-05-28 07:24 | Day surgery (SDC) | payer MEDICARE ==
[~2021-05-28 07:24] MED LIST: CYCLOPENTOLATE 1% OPHTH DROPS 2 ML ONE; KETOROLAC 0.45% OPHTH DROPS ONE; PHENYLEPHRINE 2.5% OPHTH 2 ML DROPS ONE; PROPARACAINE 0.5% OPHTH DROPS 15 ML ONE
[2021-05-28] MEDS ORDERED: LACTATED RINGERS 1,000 ML IV ONE ×2 (07:34→09:52)
--- NOTE | 2021-05-28 08:51 | ANESTHESIA ---
Pre-Anesthesia VS, & Labs - Diagnosis nuclear sclerotic cataract, right - Procedure extraction cataract with lens implant Vital Signs: Temp Pulse Resp BP Pulse Ox 36 C L 73 14 158/68 H 99 05/28/21 07:35 05/28/21 07:35 05/28/21 07:35 05/28/21 07:35 05/28/21 07:35 Height: 5 ft 5 in Weight (kg): 78 kg Body Mass Index: 28.6 BMI Classification: Overweight - NPO >8 hours - Is Patient ?: No - Lab Results Lab results reviewed: Yes Home Medications and Allergies Home Medications: Ambulatory Orders Rivaroxaban [Xarelto] 20 mg PO DAILY 05/27/21 dimenhyDRINATE [Dimenhydrinate] 50 mg PO DAILY 05/27/21 Omeprazole [PriLOSEC] 40 mg PO QDAC 09/04/13 Cholestyramine/Aspartame [Prevalite Packet] 4 gm PO DAILY 06/16/19 Diclofenac Sodium [Diclo Gel] 1 applic TOP PRN PRN 06/16/19 Amlodipine Besylate 10 mg PO DAILY 06/18/19 Psyllium Husk [Fiber] 3 cap PO BID 06/18/19 Rivaroxaban [Xarelto] 20 mg PO DAILY 05/27/21 dimenhyDRINATE [Dimenhydrinate] 50 mg PO DAILY 05/27/21 Allergies/Adverse Reactions: Allergies Allergy/AdvReac Type Severity Reaction Status Date / Time latex Allergy Intermediate swelling Verified 12/31/19 09:08 ascorbic acid Allergy Unknown Unknown Verified 12/31/19 09:08 Penicillins AdvReac Intermediate Rash Verified 12/31/19 09:08 Sulfa (Sulfonamide AdvReac Intermediate Itching Verified 12/31/19 09:08 Antibiotics) Anes History & Medical History - Anesthetic History Anesthesia Complications: reports: No previous complications Family history of Anesthesia Complications: Denies Family history of Malignant Hyperthermia: Denies - Medical History Cardiovascular: reports: Hypertension, High cholesterol, Atrial fibrillation Pulmonary: reports: None Gastrointestinal: reports: GERD, Chronic diarrhea, Cholelithiasis Urinary: reports: Kidney stones Neuro: reports: TIA Musculoskeletal: reports: Osteoarthritis, Chronic back pain Endocrine/Autoimmune: reports: None Skin: reports: None Smoking Status: Never smoker - Surgical History General: reports: Colonoscopy Eyes Ears Nose Throat (EENT): reports: Tonsil/Adenoidectomy Urologic: reports: Ureterolithotomy (stones) Gynecologic: reports: Hysterectomy Exam General: Alert, Oriented x3 Mouth Openin Fingerbreadth Neck Mobility: Normal Mallampati classification: II Respiratory: Lungs clear, Normal breath sounds Cardiovascular: Other (Afib) Abdomen: Normal bowel sounds, Soft, No tenderness, No hepatospenomegaly, No masses Extremities: No clubbing, No cyanosis, No edema, Normal pulses, No tenderness/swelling Neurological: Normal gait, Normal speech, Strength at 5/5 X4 ext, Normal tone, Sensation intact, Cranial nerves 3-12 NL, Reflexes 2+ Mental/Cognitive Status: Alert/Oriented X3, Normal for patient Cognitive Status: Within normal limits Plan Anesthesia Type: MAC Consent for Procedure(s) Verified and Reviewed: Yes Code Status: Attempt Resuscitation ASA classification: 3-Severe systemic disease Is this case an emergency?: No
[2021-05-28] MEDS ORDERED: MIDAZOLAM 2 MG/2 ML VIAL ONE (09:15)
[2021-05-28] MEDS ORDERED: BRIMONIDINE 0.2% OPHTH DROPS 5 ML OPTH ONE (09:21)
[2021-05-28] MEDS ORDERED: EPINEPHrine 1 MG/ML AMP IR ONE (09:22)
[2021-05-28] MEDS ORDERED: BSS/LIDOCAINE/EPINEPHRINE 1 ML SYRINGE IO ONE (09:22)
[2021-05-28] MEDS ORDERED: CHONDR SULF/HYALURONATE SYRINGE IO ONE (09:22)
[2021-05-28] MEDS ORDERED: TRIAMCIN/MOXIFLOX OPHTHALMIC 0.6 ML VIAL IO ONE (09:22)
[2021-05-28] MEDS ORDERED: TIMOLOL 0.5% OPHTH DROPS OPTH ONE (09:22)
[2021-05-28] MEDS ORDERED: PROPARACAINE 0.5% OPHTH DROPS 15 ML EACHEYE ONE (09:23)
[2021-05-28] MEDS ORDERED: VANCOMYCIN OPHTHALMI 8MG/0.8ML 8 MG/0.8 ML SYRINGE IO ONE (09:23)
--- NOTE | 2021-05-28 09:58 | OPERATIVE REPORT ---
Operative Report - Other Other Information/Narrative: Date of Surgery: 05/28/21 Preop Dx: Visually significant cataract right eye. This was the first cataract surgery. Postop Dx: Same Procedure: Phacoemulsification with posterior chamber intraocular lens implant right eye Surgeon: Dr. Angel Parks Anesthesia: Monitored anesthesia care Complications: None Operative Indications: This is a 85-year-old F with progressive vision loss in the right eye due to 2+ nuclear sclerotic and vacuolar cataract. Best corrected visual acuity was 20/20 with glare to 20/630 vision in the right eye. Indications for surgery were: - Overall decrease in vision - Difficulty reading - Difficulty seeing words, closed captions, or game scores on TV - Difficulty driving in low light or at night - Difficulty driving at night because of headlights from other vehicles The patient was consented at length concerning the risks and benefits of cataract surgery after which the patient expressed a desire to proceed with surgery. Operative Procedure: The patient was taken into OR#3 and placed under monitored anesthesia care. A surgical time-out was conducted confirming correct patient, correct procedure, and correct surgical site. The patient was given topical anesthesia and then prepped and draped in the usual sterile fashion. The eye was entered at the 6 and 3 oclock positions. Intracameral Shugarcaine was injected into the anterior chamber followed by a dispersive viscoelastic. A continuous-tear curvilinear capsulorhexis was performed. The nucleus was hydrodissected and phacoemulsified. The cortex was evacuated using automated infusion and aspiration. A cohesive viscoelastic was injected into the capsular bag and a 21.5 diopter intraocular lens was inserted into the bag. Infusion and aspiration were used to evacuate the viscoelastic materials from the eye. The wounds were hydrated and the eye inflated to physiologic pressure using balanced salt solution. Approximately 0.25ml of a mixture of triamcinolone and moxifloxacin was injected trans-sclerally into the vitreous in the inferotemporal quadrant using a 30 gauge cannula. An additional 0.55ml of a mixture of triamcinolone, moxifloxacin, and vancomycin was injected subconjunctivally in the superior quadrant for infection and inflammation prophylaxis. Wound integrity was checked with Weck-Xiao sponges. The patient was taken from the operating room in good condition and given post-op instructions.
--- NOTE | 2021-05-28 10:01 | ANESTHESIA POST OP EVALUATION ---
Anesthesia Post Eval - Post Anesthesia Eval Vitals: Last Vital Signs Temp 36.2 C L 05/28/21 09:58 Pulse 68 05/28/21 09:58 Resp 14 05/28/21 09:58 BP 150/60 H 05/28/21 09:58 Pulse Ox 99 05/28/21 09:58 CV Function Including HR & BP: Stable Pain Control: Satisfactory Nausea & Vomiting: Negative Mental Status: Baseline Respiratory Status: Airway Patent Hydration Status: Satisfactory Anesthesia Complications: None
[2021-05-28 10:07] VITALS: BP 153/63
== END 2021-05-28 07:25 | disposition home or self-care (01) ==
LOC: SDS 07:24
PROVIDERS: ATTEND Ophthalmology
DX: H25.11 Age-related nuclear cataract, right eye (principal); I48.91 Unspecified atrial fibrillation; Z79.01 Long term (current) use of anticoagulants
CPT/HCPCS: 66984; A9270; J3490; J7120

== ENCOUNTER 2021-07-09 18:29 | Outpatient (CLI) | payer MEDICARE | END 2021-07-09 18:30 | disposition critical access hospital (66) | LOC: EMS 18:29 | DX: H53.8 Other visual disturbances (principal); R42 Dizziness and giddiness; R47.02 Dysphasia; R41.89 Other symptoms and signs involving cognitive functions and awareness | CPT/HCPCS: A0425; A0429 ==

== ENCOUNTER 2021-07-09 18:39 | Emergency (ER) | payer MEDICARE ==
--- NOTE | 2021-07-09 19:19 | ED Physician Documentation ---
PD HPI ALTERED MENTAL STATUS - Stated complaint Stated Complaint: BLURRED VISION - Chief complaint Chief Complaint: Neuro - History obtained from History obtained from: Patient - History of Present Illness Timing - onset: Enter time (15:00), Today Timing - details: Abrupt onset Quality / character: Other (see below) Associated symptoms: Headache, NVD (nausea). No: Fever, Stiff neck, Dyspnea, Cough, Urinary sx, General weakness, Focal weakness, Seizure activity, Syncope Contributing factors: Anticoagulated Basline status: Alert and oriented X 3, Ambulatory, Independent Similar symptoms before: Diagnosis (TIA) Recently seen: Not recently seen - Additional information Additional information: at 3 PM this afternoon, patient developed trouble putting words together (per patient), trouble transmitting what I want to say (in clarifying, she is describing having clear thoughts but some degree of difficulty expressing the thoughts and words), and bilaterally blurred vision. As these symptoms improved, she developed nausea, dizziness, and right-sided headache. Her visual changes have resolved by the time of this evaluation, and her difficulty speaking has nearly resolved as well. Review of Systems Constitutional: reports: Reviewed and negative Eyes: reports: Decreased vision (bilateral blurred, resolved) Cardiac: reports: Reviewed and negative Respiratory: reports: Reviewed and negative GI: reports: Nausea. denies: Abdominal Pain, Vomiting, Constipation, Diarrhea : denies: Dysuria, Frequency Musculoskeletal: denies: Neck pain, Back pain Neurologic: reports: Difficulty speaking, Headache. 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 HEENT: Tonsil/Adenoidectomy - Present Medications Home Medications: Ambulatory Orders Medication Instructions Recorded Confirmed Omeprazole [PriLOSEC] 40 mg PO QDAC 09/04/13 05/27/21 Cholestyramine/Aspartame 4 gm PO DAILY 06/16/19 05/27/21 [Prevalite Packet] Diclofenac Sodium [Diclo Gel] 1 applic TOP PRN PRN 06/16/19 05/27/21 Amlodipine Besylate 10 mg PO DAILY 06/18/19 05/27/21 Loperamide [Imodium] 2 mg PO QID PRN capsule 06/18/19 05/27/21 Psyllium Husk [Fiber] 3 cap PO BID 06/18/19 05/27/21 Rivaroxaban [Xarelto] 20 mg PO DAILY 05/27/21 05/27/21 dimenhyDRINATE [Dimenhydrinate] 50 mg PO DAILY 05/27/21 05/27/21 - Allergies Allergies/Adverse Reactions: Allergies Allergy/AdvReac Type Severity Reaction Status Date / Time latex Allergy Intermediate swelling Verified 07/09/21 18:52 ascorbic acid Allergy Unknown Unknown Verified 07/09/21 18:52 Penicillins AdvReac Intermediate Rash Verified 07/09/21 18:52 Sulfa (Sulfonamide AdvReac Intermediate Itching Verified 07/09/21 18:52 Antibiotics) - Social History Does the pt smoke?: No Smoking Status: Never smoker Does the pt drink ETOH?: No Does the pt have substance abuse?: No - Immunizations Immunizations are current?: Yes PD ED PE NORMAL - Vitals Vital signs reviewed: Yes - General General: Alert and oriented X 3, No acute distress, Well developed/nourished - HEENT HEENT: PERRL, EOMI, Moist mucous membranes - Neck Neck: Supple, no meningeal sign, No bruit - Cardiac Cardiac: No murmur - Respiratory Respiratory: No respiratory distress, Clear bilaterally - Abdomen Abdomen: Soft, Non tender - Back Back: No CVA TTP - Derm Derm: Normal color, Warm and dry - Extremities Extremities: No edema - Neuro Neuro: Alert and oriented X 3, oracle 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 administrator 2-12 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, No motor deficit, No sensory deficit, Normal speech Eye Opening: Spontaneous Motor: Obeys Commands Verbal: Oriented GCS Score: 15 PD ED PE EXPANDED - Cardiac Cardiac: Regular Rate, Irregularly irregular NIHSS - Level of Consciousness Level of consciousness: (0) Alert, Keenly responsive LOC Questions: (0) Answers both Q's correct LOC Commands: (0) Performs both correctly - Gaze Best Gaze: (0) Normal - Visual Visual: (0) No loss - Facial Palsy Facial Palsy: (0) Normal, symmetrical movement - Motor Arms (both separate) Motor Arm (right): (0) No drift Motor Arm (left): (0) No drift - Motor Legs (both separate) Motor Leg (right): (0) No drift Motor Leg (left): (0) No drift - Limb Ataxia Limb Ataxia: (0) Absent - Sensory Sensory: (0) Normal - Best Language Best Language: (0) No aphasia - Dysarthria Dysarthria: (0) Normal - Extinction and Inattention (formally neg Extinction and inattention: (0) No abnormality - Total Score/Results Total Score/Result: 0 Results - Vitals Vitals: Oxygen O2 Source Room air - EKG (time done) No standard instances Rate: Rate (enter#) (74) Rhythm: Atrial fibrillation [place]: LAD (borderline LAD) Ischemia: Normal ST segments Computer interpretation: Disagree with computer (my interpretation of EKG is atrial fibrillation and not sinus rhythm) - Labs Labs: Laboratory Tests 07/09/21 07/09/21 07/09/21 19:44 19:59 19:59 WBC 8.8 RBC 4.51 Hgb 10.9 L Hct 37.5 MCV 83.1 MCH 24.2 L MCHC 29.1 L RDW 15.7 H Plt Count 319 MPV 10.6 Neut # (Auto) 6.3 Lymph # (Auto) 1.6 [place]aves # (Auto) 0.7 Eos # (Auto) 0.1 Baso # (Auto) 0.1 Absolute Nucleated RBC 0.00 Nucleated RBC % 0.0 Sodium 142 Potassium 3.1 L Chloride 107 Carbon Dioxide 24 Anion Gap 11.0 BUN 8 Creatinine 0.7 Estimated GFR (MDRD) 80 L Glucose 86 Calcium 8.9 Urine Color YELLOW Urine Clarity SL. CLOUDY Urine pH 6.0 Ur Specific [place] 1.010 Urine Protein NEGATIVE Urine Glucose (UA) NEGATIVE Urine Ketones NEGATIVE Urine Occult Blood TRACE-INTA Urine Nitrite NEGATIVE Urine Bilirubin NEGATIVE Urine Urobilinogen 0.2 (NORMAL) Ur Leukocyte Esterase MODERATE H Urine RBC 0-5 Urine WBC >25 H Ur Squamous Epith Cells MOD Squamous H Urine Bacteria None Seen Ur Microscopic Review INDICATED Urine Culture Comments NOT INDICATED - Rads (name of study) CTA head Radiology: Prelim report reviewed, See rad report CTA neck Radiology: Prelim report reviewed, See rad report PD MEDICAL DECISION MAKING - ED course Complexity details: reviewed old records, reviewed results, re-evaluated patient, considered differential, d/w patient ED course: unremarkable findings on EKG (atrial fibrillation which is not new), CTA neck without notable stenosis, CTA head shows possible small chronic lacunar infarct but no acute findings. Mild hypokalemia on blood tests given potassium chloride prior to d/c home. Results d/w and she reports her symptoms have all completely resolved. Some elements of he even sound like TIA, others suggest migraine equivalent such as occular migraine. She is encouraged to return if worse, f/u with her primary care provider next available appointment to discuss further testing (at the discretion of the primary care provider). Note that although she had no difficulty at all in getting through the NIHSS including verbal portions, I did noticed just a few minutes earlier perhaps two times when she used an incorrect work in the context of a sentence, and took several seconds to find the correct word. While these episodes were brief and not alarming, they may have represented the resolution of a more severe difficulty in syntax and proper use of words in simple sentences as she describes had happened just shortly prior to this evaluation. Departure - Departure Disposition: 01 Home, Self Care Clinical Impression: Stroke-like symptoms, Hypokalemia Headache Qualifiers: Headache type: unspecified Headache chronicity pattern: acute headache Intractability: not intractable Qualified Code(s): R51.9 - Headache, unspecified Condition: Good Instructions: ED Cephalgia Unspecified, ED Potassium Deficiency Follow-Up: Shameka Velasquez MD [Primary Care Provider] - Discharge Date/Time: 07/09/21 22:49
[2021-07-09] MEDS ORDERED: ACETAMINOPHEN 325 MG TABLET PO STA (19:39)
[2021-07-09] MEDS ORDERED: IOVERSOL 320 100 ML VIAL IVP ONE ×2 (19:46→20:52)
[2021-07-09 19:53] LABS: BILIRUBIN,URINE NEGATIVE (NEGATIVE); GLUCOSE, URINE (UA) NEGATIVE (NEGATIVE); KETONES,URINE (UA) NEGATIVE (NEGATIVE); LEUKOCYTE ESTERASE, URINE MODERATE (NEGATIVE); NITRITE,URINE NEGATIVE (NEGATIVE); OCCULT BLOOD,URINE TRACE-INTA (NEGATIVE); PROTEIN,URINE NEGATIVE (NEGATIVE); UROBILINOGEN,URINE 0.2 (NORMAL) E.U./dL (NORMAL)
[2021-07-09 19:58] LABS: CLARITY,URINE SL. CLOUDY (CLEAR)
[2021-07-09 20:06] LABS: BASOPHILS # (AUTO) 0.1 10^3/uL (0.0-0.1); EOSINOPHILS # (AUTO) 0.1 10^3/uL (0.0-0.7); EOSINOPHILS % (AUTO) 1.2 %; HCT - HEMATOCRIT 37.5 % (37.0-47.0); HGB - HEMOGLOBIN 10.9 g/dL (12.0-16.0); LYMPHOCYTES # (AUTO) 1.6 10^3/uL (1.5-3.5); LYMPHOCYTES % (AUTO) 18.5 %; MEAN CORPUSCULAR HEMOGLOBIN 24.2 pg (27.0-31.0); MEAN CORPUSCULAR HGB CONC 29.1 g/dL (32.0-36.0); MEAN CORPUSCULAR VOLUME 83.1 fL (81.0-99.0); MEAN PLATELET VOLUME 10.6 fL (7.9-10.8); MONOCYTES # (AUTO) 0.7 10^3/uL (0.0-1.0); MONOCYTES % (AUTO) 8.2 %; NEUTROPHILS # (AUTO) 6.3 10^3/uL (1.5-6.6); NEUTROPHILS % (AUTO) 70.8 %; PLT - PLATELET COUNT 319 10^3/uL (130-450); RED BLOOD COUNT 4.51 10^6/uL (4.20-5.40); RED CELL DISTRIBUTION WIDTH 15.7 % (12.0-15.0); WHITE BLOOD COUNT 8.8 x10^3/uL (4.8-10.8)
[2021-07-09 20:13] LABS: CALCIUM 8.9 mg/dL (8.5-10.3); CREATININE 0.7 mg/dL (0.4-1.0); POTASSIUM 3.1 mmol/L (3.5-5.0)
[2021-07-09 20:27] LABS: BACTERIA,URINE None Seen /HPF (None Seen); RBC,URINE 0-5 /HPF (0-5); SQUAMOUS EPITHELIAL CELL,UR MOD Squamous (<= Few); WBC,URINE >25 /HPF (0-5)
--- NOTE | 2021-07-09 21:02 | CT Report ---
PROCEDURE: ANGIO HEAD W/WO INDICATIONS: mild expressive aphasia, mild headache CONTRAST: IV CONTRAST: Optiray 320 ml: 80 PO CONTRAST: *NO PO CONTRAST TECHNIQUE: Precontrast 4.5 mm thick angled axial sections acquired from the foramen magnum to the vertex. Afte r the administration of intravenous contrast, 1 mm thick sections acquired through the [place] of [place] is. Postcontrast 4.5 mm thick sections then re-acquired from the foramen magnum to the vertex. 3-di mensional lpcsaoi-ikvkravub-kdcaracwfh (MIP) and/or volume rendering reformats were acquired of the c entral intracranial vasculature. For radiation dose reduction, the following was used: automated ex posure control, adjustment of mA and/or kV according to patient size. COMPARISON: CT head 12/31/2019 FINDINGS: Image quality: Excellent. Anterior circulation: Mild atherosclerotic calcifications are seen in the intracranial internal carot id artery is without hemodynamically significant stenosis. The flow within the paired anterior cerebr al arteries is normal and symmetric. The flow within the middle cerebral arteries is normal and symm etric. The anterior communicating artery is seen. No aneurysms are seen. A large right posterior c ommuting artery is seen. Posterior circulation: Visualized portions of the vertebral arteries demonstrate normal caliber, and join to form a normal appearing basilar artery. Flow within the posterior cerebral arteries is norm al and symmetric. No aneurysms are seen. CSF spaces: Ventricles are normal in size and shape. Basal cisterns are patent. No extra-axial flu id collections. Brain: No midline shift. No acute intracranial hemorrhage or mass effect. A tiny hypodensity is seen at the right caudate nucleus that likely represents a subacute to chronic lacunar infarct. Nails-whit e matter interface appears intact. Skull and face: Calvarium and facial bones appear intact, without suspicious lesions. Sinuses: Visualized sinuses and mastoids are clear. IMPRESSION: 1.No acute intracranial abnormality. No hemodynamically significant arterial stenosis or occlusion. 2.Small hypodensity in the right condyle is most likely represents a chronic lacunar infarct. Reviewed by: Joey Chang MD on 07/09/2021 9:01 PM PDT Approved by: Joey Chang MD on 07/09/2021 9:01 PM PDT Station ID: [id number]
--- NOTE | 2021-07-09 21:08 | CT Report ---
PROCEDURE: ANGIO NECK W INDICATIONS: mild expressive aphasia, LEE CONTRAST: IV CONTRAST: Optiray 320 ml: 80 PO CONTRAST: *NO PO CONTRAST TECHNIQUE: After the administration of intravenous contrast, 1.5 mm axial sections acquired from the aortic arch to the [place] of Baptiste. Coronal 3-D maximum intensity projection (MIP) and/or volume rendering ref ormats were then performed. For radiation dose reduction, the following was used: automated exposur e control, adjustment of mA and/or kV according to patient size. COMPARISON: CTA neck 06/16/2019, thyroid ultrasound 10/30/2019. FINDINGS: Image quality: Excellent. Carotid system: Mild atherosclerotic calcifications are seen in the aortic arch. The great vessels d emonstrate a conventional anatomy as they arise from the aortic arch. The origins of the common monteiro tid arteries appear patent. The common carotid arteries demonstrate normal calibers and courses. Th e bifurcation regions appear normal bilaterally. The extracranial internal carotid arteries demonstr ate normal caliber and course. Mild atherosclerotic calcifications are seen in the intracranial port ions of the internal carotid arteries bilaterally without hemodynamically significant stenosis. Posterior circulation: The origins of the vertebral arteries appear patent. The more superior porti ons of the vertebral arteries demonstrate normal course and caliber. They join to form a normal appe aring basilar artery. Soft tissues: Visualized neck soft tissues demonstrate no suspicious abnormalities. A 3.2 cm hypoat tenuating nodule is seen in the right thyroid lobe. Small left thyroid nodule is noted. These lesions were previously described on the thyroid ultrasound from 10/30/2019. Bones: No suspicious bony lesions. Multilevel degenerative changes are seen in the cervical spine. IMPRESSION: No hemodynamically significant arterial stenosis or occlusion within the neck. The estimate of stenosis included in the report of the imaging study was calculated using the NASCET method Reviewed by: Joey Chang MD on 07/09/2021 9:07 PM PDT Approved by: Joey Chang MD on 07/09/2021 9:07 PM PDT Station ID: [id number]
[2021-07-09] MEDS ORDERED: POTASSIUM CHLORIDE 20 MEQ TABLET PO STA (21:52)
[2021-07-09 22:01] VITALS: BP 166/57
== END 2021-07-09 22:49 | disposition home or self-care (01) ==
LOC: EDUNIT# → ED 18:39 → SUPCPDRO 18:39 → ED 22:49
DX: H53.8 Other visual disturbances (principal); R47.89 Other speech disturbances; R51.9 Headache, unspecified; E87.6 Hypokalemia; R11.0 Nausea; R42 Dizziness and giddiness; I48.91 Unspecified atrial fibrillation
CPT/HCPCS: 36415; 70496; 70498; 80048; 81001; 85025; 93005; 99284; A9270; Q9967; 81003; 87086

== ENCOUNTER 2021-07-16 13:56 | Outpatient (CLI) | payer MEDICARE ==
[2021-07-16 14:29] LABS: CALCIUM 9.5 mg/dL (8.5-10.3); CREATININE 0.8 mg/dL (0.4-1.0); POTASSIUM 4.1 mmol/L (3.5-5.0)
== END 2021-07-16 13:57 | disposition home or self-care (01) ==
LOC: LAB 13:56
PROVIDERS: ATTEND Internal Medicine
DX: E87.6 Hypokalemia (principal)
CPT/HCPCS: 36415; 80048

== ENCOUNTER 2021-08-19 10:47 | Outpatient (CLI) | payer MEDICARE | END 2021-08-19 23:59 | disposition home or self-care (01) | LOC: LAB.N 10:47 | PROVIDERS: ATTEND Family Medicine | DX: R05.9 Cough, unspecified (principal); Z20.822 Contact with and (suspected) exposure to COVID-19 ==

== ENCOUNTER 2021-08-19 10:47 | Outpatient (CLI) | payer MEDICARE ==
--- NOTE | 2021-08-19 12:03 | XRAY Report ---
PROCEDURE: Chest 2 View X-Ray INDICATIONS: Rhonchi and wheezing TECHNIQUE: 2 view(s) of the chest. COMPARISON: 06/16/2019 FINDINGS: Surgical changes and devices: None. Lungs and pleura: Bibasilar consolidation with adjacent small pleural effusions. Slightly increased i nterstitial markings in both lungs. Mediastinum: Mediastinal contours are normal. Heart size is normal. Bones and chest wall: No suspicious bony abnormalities. Soft tissues appear unremarkable. IMPRESSION: Bibasilar consolidation with small adjacent pleural effusions. Slightly increased inters titial markings in both lungs. Findings may represent pulmonary edema with pleural effusions, althoug h infection is favored. Correlate for any clinical evidence of either pulmonary edema or infection. F ollow-up to resolution recommended. Reviewed by: Wojciech Powers MD on 08/19/2021 11:01 AM [facility] Approved by: Wojciech Powers MD on 08/19/2021 11:01 AM [facility] Station ID: [id number]
== END 2021-08-19 23:59 | disposition home or self-care (01) ==
LOC: DI.N 10:47
PROVIDERS: ATTEND Family Medicine
DX: R09.89 Other specified symptoms and signs involving the circulatory and respiratory systems (principal); R06.2 Wheezing; J90 Pleural effusion, not elsewhere classified; R91.8 Other nonspecific abnormal finding of lung field

== ENCOUNTER 2021-09-30 09:38 | Outpatient (CLI) | payer MEDICARE | END 2021-09-30 09:39 | disposition critical access hospital (66) | LOC: EMS 09:38 | DX: M54.6 Pain in thoracic spine (principal); R07.9 Chest pain, unspecified; R42 Dizziness and giddiness; R11.0 Nausea | CPT/HCPCS: A0425; A0427 ==

== ENCOUNTER 2021-09-30 09:52 | Emergency (ER) | payer MEDICARE ==
--- NOTE | 2021-09-30 09:59 | ED Physician Documentation ---
PD HPI CHEST PAIN - Stated complaint Stated Complaint: R SIDE PX - History obtained from History obtained from: Patient - Additional information Additional information: 86-year-old woman with history of atrial fibrillation on a DOAC. She has had loose bowels for about 3 days. She has a history of renal colic requiring intervention albeit not in many years. She developed right-sided flank pain and nausea this morning at 1 AM which is improved now but then around 6 AM developed chest heaviness with left-sided neck pain. Review of Systems Ten Systems: 10 systems reviewed and negative Constitutional: denies: Fever, Chills Cardiac: reports: Chest pain / pressure. denies: Palpitations Respiratory: denies: Dyspnea, Cough PD PAST MEDICAL HISTORY - Past Medical History Cardiovascular: Hypertension, High cholesterol, Atrial fibrillation Respiratory: None Neuro: TIA Endocrine/Autoimmune: None GI: GERD, Chronic diarrhea, Cholelithiasis : Kidney stones HEENT: Chronic vision loss, Chronic sinusitis, Chronic hearing loss Psych: None Musculoskeletal: Osteoarthritis, Chronic back pain Derm: None - Past Surgical History Past Surgical History: Yes General: Colonoscopy /[place]: Hysterectomy HEENT: Tonsil/Adenoidectomy - Present Medications Home Medications: Ambulatory Orders Medication Instructions Recorded Confirmed Omeprazole [PriLOSEC] 40 mg PO QDAC 09/04/13 05/27/21 Cholestyramine/Aspartame 4 gm PO DAILY 06/16/19 05/27/21 [Prevalite Packet] Diclofenac Sodium [Diclo Gel] 1 applic TOP PRN PRN 06/16/19 05/27/21 Amlodipine Besylate 10 mg PO DAILY 06/18/19 05/27/21 Loperamide [Imodium] 2 mg PO QID PRN capsule 06/18/19 05/27/21 Psyllium Husk [Fiber] 3 cap PO BID 06/18/19 05/27/21 Rivaroxaban [Xarelto] 20 mg PO DAILY 05/27/21 05/27/21 dimenhyDRINATE [Dimenhydrinate] 50 mg PO DAILY 05/27/21 05/27/21 - Allergies Allergies/Adverse Reactions: Allergies Allergy/AdvReac Type Severity Reaction Status Date / Time latex Allergy Intermediate swelling Verified 07/09/21 18:52 ascorbic acid Allergy Unknown Unknown Verified 07/09/21 18:52 Penicillins AdvReac Intermediate Rash Verified 07/09/21 18:52 Sulfa (Sulfonamide AdvReac Intermediate Itching Verified 07/09/21 18:52 Antibiotics) - Social History Does the pt smoke?: No Smoking Status: Never smoker Does the pt drink ETOH?: No Does the pt have substance abuse?: No - Immunizations Immunizations are current?: Yes PD ED PE NORMAL - Vitals Vital signs reviewed: Yes - General General: Alert and oriented X 3, No acute distress - HEENT HEENT: PERRL, EOMI - Neck Neck: Supple, no meningeal sign, No bony TTP - Cardiac Cardiac: Other (Irregularly irregular without murmur) - Respiratory Respiratory: No respiratory distress, Clear bilaterally - Abdomen Abdomen: Normal bowel sounds, Soft, Non tender - Back Back: No CVA TTP - Derm Derm: Normal color, Warm and dry - Extremities Extremities: No edema, No calf tenderness / cord - Neuro Neuro: Alert and oriented X 3, Normal speech Results - Vitals Vitals: Vital Signs - 24 hr 09/30/21 09/30/21 09/30/21 10:04 10:36 11:40 Temperature Heart Rate 83 73 72 Respiratory 20 20 20 Rate Blood Pressure 146/67 H 179/62 H O2 Saturation 100 100 100 09/30/21 09/30/21 09/30/21 13:33 15:40 18:24 Temperature 36.5 C Heart Rate 74 83 74 Respiratory 26 H 24 Rate Blood Pressure 146/64 H 134/50 H O2 Saturation 100 99 96 09/30/21 19:02 Temperature Heart Rate 77 Respiratory 18 Rate Blood Pressure 135/74 H O2 Saturation 96 Oxygen O2 Source Room air - EKG (time done) 1132 Rate: Rate (enter#) (76) Rhythm: NSR (with frequent PACs) [place]: Normal Intervals: Normal UT QRS: Low voltage Ischemia: Normal ST segments - Labs Labs: Laboratory Tests 09/30/21 09/30/21 09/30/21 10:06 10:06 10:06 WBC 17.5 H RBC 4.35 Hgb 9.5 L Hct 32.4 L MCV 74.5 L MCH 21.8 L MCHC 29.3 L RDW 18.2 H Plt Count 350 MPV 9.9 Neut # (Auto) 15.6 H Lymph # (Auto) 0.5 L [place] # (Auto) 1.3 H Eos # (Auto) 0.0 Baso # (Auto) 0.1 Absolute Nucleated RBC 0.00 Nucleated RBC % 0.0 Sodium 136 Potassium 3.6 Chloride 102 Carbon Dioxide 26 Anion Gap 8.0 BUN 15 Creatinine 0.8 Estimated GFR (MDRD) 68 L Glucose 136 H Lactic Acid Calcium 8.8 Total Bilirubin 0.7 AST 20 ALT 15 Alkaline Phosphatase 70 Troponin I High Sens 8.4 Total Protein 6.3 L Albumin 3.5 Globulin 2.8 Albumin/Globulin Ratio 1.3 Lipase 19 L Urine Color Urine Clarity Urine pH Ur Specific [place] Urine Protein Urine Glucose (UA) Urine Ketones Urine Occult Blood Urine Nitrite Urine Bilirubin Urine Urobilinogen Ur Leukocyte Esterase Urine RBC Urine WBC Urine WBC Clumps Ur Squamous Epith Cells Urine Bacteria Ur Microscopic Review Urine Culture Comments Nasal Adenovirus (PCR) Nasal B. parapertussis DNA (PCR) Nasal Coronavir 229E PCR Nasal Coronavir HKU1 PCR Nasal Coronavir NL63 PCR Nasal Coronavir OC43 PCR Nasal Enterovir/Rhinovir PCR Nasal Influenza B PCR Nasal Influenza A PCR Nasal Parainfluen 1 PCR Nasal Parainfluen 2 PCR Nasal Parainfluen 3 PCR Nasal Parainfluen 4 PCR Nasal RSV (PCR) Nasal B.pertussis DNA PCR Nasal C.pneumoniae (PCR) Herman Human Metapneumo PCR Nasal M.pneumoniae (PCR) Nasal SARS-CoV-2 (PCR) 09/30/21 09/30/21 09/30/21 10:32 11:16 11:50 WBC RBC Hgb Hct MCV MCH MCHC RDW Plt Count MPV Neut # (Auto) Lymph # (Auto) [place] # (Auto) Eos # (Auto) Baso # (Auto) Absolute Nucleated RBC Nucleated RBC % Sodium Potassium Chloride Carbon Dioxide Anion Gap BUN Creatinine Estimated GFR (MDRD) Glucose Lactic Acid 1.2 Calcium Total Bilirubin AST ALT Alkaline Phosphatase Troponin I High Sens Total Protein Albumin Globulin Albumin/Globulin Ratio Lipase Urine Color YELLOW Urine Clarity CLOUDY Urine pH 6.0 Ur Specific [place] 1.015 Urine Protein TRACE Urine Glucose (UA) NEGATIVE Urine Ketones NEGATIVE Urine Occult Blood MODERATE H Urine Nitrite POSITIVE H Urine Bilirubin NEGATIVE Urine Urobilinogen 0.2 (NORMAL) Ur Leukocyte Esterase LARGE H Urine RBC 11-25 H Urine WBC >25 H Urine WBC Clumps PRESENT Ur Squamous Epith Cells FEW Squamous Urine Bacteria Moderate H Ur Microscopic Review INDICATED Urine Culture Comments INDICATED Nasal Adenovirus (PCR) NOT DETECTED Nasal B. parapertussis DNA (PCR) NOT DETECTED Nasal Coronavir 229E PCR NOT DETECTED Nasal Coronavir HKU1 PCR NOT DETECTED Nasal Coronavir NL63 PCR NOT DETECTED Nasal Coronavir OC43 PCR NOT DETECTED Nasal Enterovir/Rhinovir PCR NOT DETECTED Nasal Influenza B PCR NOT DETECTED Nasal Influenza A PCR NOT DETECTED Nasal Parainfluen 1 PCR NOT DETECTED Nasal Parainfluen 2 PCR NOT DETECTED Nasal Parainfluen 3 PCR NOT DETECTED Nasal Parainfluen 4 PCR NOT DETECTED Nasal RSV (PCR) NOT DETECTED Nasal B.pertussis DNA PCR NOT DETECTED Nasal C.pneumoniae (PCR) NOT DETECTED Herman Human Metapneumo PCR NOT DETECTED Nasal M.pneumoniae (PCR) NOT DETECTED Nasal SARS-CoV-2 (PCR) NOT DETECTED PD MEDICAL DECISION MAKING - ED course ED course: 86-year-old woman presents with chest pain and flank pain consistent with prior renal colic. While this certainly could be renal colic, the combination of the 2 would also be worrisome for a vascular issue and will do angiography of the chest and abdomen. We will do a cardiac work-up as well. She declines pain medication on initial evaluation. Found to have proximal right ureterolith with obstruction and evidence of UTI. She will need transfer to a facility capable of urology plus or minus interventional radiology. We started making calls but unfortunately every hospital in [facility] is full and boarding patients and as such I expect a prolonged length of stay in the emergency department to get her to definitive care. She was administered levofloxacin IV after blood cultures noting her antibiotic allergies. Care to oncoming ED MD at shift change. Departure - Departure Disposition: 02 Transfer Acute Care Hosp Clinical Impression: Ureterolithiasis, Pyelonephritis, Anticoagulant long-term use Atrial fibrillation Qualifiers: Atrial fibrillation type: unspecified chronic Qualified Code(s): I48.20 - Chronic atrial fibrillation, unspecified Condition: Serious
[2021-09-30 10:10] LABS: BASOPHILS # (AUTO) 0.1 10^3/uL (0.0-0.1); BASOPHILS % (AUTO) 0.4 %; EOSINOPHILS % (AUTO) 0.2 %; HCT - HEMATOCRIT 32.4 % (37.0-47.0); HGB - HEMOGLOBIN 9.5 g/dL (12.0-16.0); LYMPHOCYTES # (AUTO) 0.5 10^3/uL (1.5-3.5); LYMPHOCYTES % (AUTO) 2.7 %; MEAN CORPUSCULAR HEMOGLOBIN 21.8 pg (27.0-31.0); MEAN CORPUSCULAR HGB CONC 29.3 g/dL (32.0-36.0); MEAN CORPUSCULAR VOLUME 74.5 fL (81.0-99.0); MEAN PLATELET VOLUME 9.9 fL (7.9-10.8); MONOCYTES # (AUTO) 1.3 10^3/uL (0.0-1.0); MONOCYTES % (AUTO) 7.2 %; NEUTROPHILS # (AUTO) 15.6 10^3/uL (1.5-6.6); NEUTROPHILS % (AUTO) 89.2 %; PLT - PLATELET COUNT 350 10^3/uL (130-450); RED BLOOD COUNT 4.35 10^6/uL (4.20-5.40); RED CELL DISTRIBUTION WIDTH 18.2 % (12.0-15.0); WHITE BLOOD COUNT 17.5 x10^3/uL (4.8-10.8)
[2021-09-30 10:32] LABS: ALBUMIN 3.5 g/dL (3.2-5.5); ALBUMIN/GLOBULIN RATIO 1.3 (1.0-2.2); BILIRUBIN,TOTAL 0.7 mg/dL (0.2-1.0); CALCIUM 8.8 mg/dL (8.5-10.3); CREATININE 0.8 mg/dL (0.4-1.0); POTASSIUM 3.6 mmol/L (3.5-5.0); TOTAL PROTEIN 6.3 g/dL (6.7-8.2)
[2021-09-30 10:43] LABS: BILIRUBIN,URINE NEGATIVE (NEGATIVE); CLARITY,URINE CLOUDY (CLEAR); GLUCOSE, URINE (UA) NEGATIVE (NEGATIVE); KETONES,URINE (UA) NEGATIVE (NEGATIVE); LEUKOCYTE ESTERASE, URINE LARGE (NEGATIVE); NITRITE,URINE POSITIVE (NEGATIVE); OCCULT BLOOD,URINE MODERATE (NEGATIVE); PROTEIN,URINE TRACE mg/dL (NEGATIVE); UROBILINOGEN,URINE 0.2 (NORMAL) E.U./dL (NORMAL)
[2021-09-30] MEDS ORDERED: iohexoL-300 100 ML VIAL ONE (10:44)
[2021-09-30 10:54] LABS: BACTERIA,URINE Moderate /HPF (None Seen); SQUAMOUS EPITHELIAL CELL,UR FEW Squamous (<= Few); WBC CLUMPS,URINE PRESENT; WBC,URINE >25 /HPF (0-5)
[2021-09-30] MEDS: levoFLOXacin 500 MG/100 ML 500 MG/100 ML BAG IV SCH (11:48)
--- NOTE | 2021-09-30 12:00 | CT Report ---
PROCEDURE: ANGIO CHEST W/WO INDICATIONS: chest/back pain, aorta protocol CONTRAST: IV CONTRAST: Optiray 320 ml: 100 PO CONTRAST: *NO PO CONTRAST TECHNIQUE: After the administration of intravenous contrast, 2 mm axial images were acquired from the pulmonary apices to the posterior costophrenic angles during the arterial phase. In addition, 1 mm lung kernel and 5 mm soft tissue kernel reconstructions were performed. 3-dimensional coronal oblique maximum int ensity projection (MIP) reformats, 8 mm axial MIP, and 5 mm coronal and sagittal MPR reformats were t hen performed through the thorax. For radiation dose reduction, the following was used: automated exp osure control, adjustment of mA and/or kV according to patient size. COMPARISON: No pertinent prior study. FINDINGS: There is no thoracic aortic aneurysm or dissection. No other acute aortic abnormality identified. Atherosclerosis in the thoracic aorta including in the aortic arch with extension into the arch branc h vessels. Subclavian arteries and visualized portions of the carotid systems appear widely patent. Normal heart size. No pericardial effusion. Normal caliber main pulmonary trunk with no obvious proximal pulmonary artery filling defect identifi ed. No threshold enlarged thoracic lymph node. Bilateral thyroid nodules unchanged in size since at least May 2019. Moderate sized hiatal hernia. No pleural effusion or other significant pleural abnormality. No acute airspace opacity. No acute or suspicious osseous lesion. Exaggerated thoracic kyphosis. Likely chronic compression fracture in the T9 vertebral body. IMPRESSION: No aortic dissection or other acute finding in the chest. Moderate-sized hiatal hernia. T9 compression deformity is unchanged from 08/19/2021 radiographs of the chest and is likely chronic a lthough correlation for any point tenderness is requested to exclude an acute component. Reviewed by: Wojciech Powers MD on 09/30/2021 10:59 AM [facility] Approved by: Wojciech Powers MD on 09/30/2021 10:59 AM [facility] Station ID: [id number]
--- NOTE | 2021-09-30 12:04 | CT Report ---
PROCEDURE: ANGIO ABDOMEN/PELVIS W INDICATIONS: chest/back pain, aorta protocol CONTRAST: IV CONTRAST: Optiray 320 ml: 100 PO CONTRAST: *NO PO CONTRAST TECHNIQUE: After the administration of intravenous contrast, 2 and 5 mm sections acquired from the diaphragm to the iliac crests. 3-dimensional maximum intensity projection (MIP) coronal and sagittal reformats, a nd/or 3-dimensional volume rendering reformatting was then performed. For radiation dose reduction, the following was used: automated exposure control, adjustment of mA and/or kV according to patient size. COMPARISON: CT abdomen and pelvis 03/03/2021 FINDINGS: Approximately 4 mm obstructing in the proximal right ureter (series 5 image 78) producing moderate ri ght hydroureteronephrosis with perinephric and periureteric fat stranding. No additional urinary trac t calculus identified. No hydroureteronephrosis on the left. Urinary bladder is within normal limits. No acute enteric abnormality. Sigmoid diverticulosis with no findings of diverticulitis. No free air or free fluid. Normal angiographic appearance of the liver, spleen, adrenal glands, and pancreas with no evidence of acute finding or discrete mass. Unremarkable abdominal aorta. No threshold enlarged intra-abdominal, right peroneal, pelvic, or inguinal lymph node. No acute or suspicious osseous lesion. IMPRESSION: Obstructing 4 mm right proximal ureteral calculus producing moderate hydroureteronephrosis. Reviewed by: Wojciech Powers MD on 09/30/2021 11:03 AM [facility] Approved by: Wojciech Powers MD on 09/30/2021 11:03 AM [facility] Station ID: [id number]
[2021-09-30] MEDS ORDERED: D5.45NS W/20 MEQ KCL 1,000 ML IV STA (12:32)
[2021-09-30 12:53] LABS: CORONAVIRUS 229E-RESP PCR NOT DETECTED; CORONAVIRUS HKU1-RESP PCR NOT DETECTED; CORONAVIRUS NL63-RESP PCR NOT DETECTED; CORONAVIRUS OC43-RESP PCR NOT DETECTED; HUMAN METAPNEUMOVIRUS NOT DETECTED; INFLUENZA A- RESP PCR PANEL NOT DETECTED; RHINOVIRUS/ENTEROVIRUS NOT DETECTED; SARS-CoV-2 -RESP PCR PANEL NOT DETECTED
[2021-09-30 12:54] LABS: B. PARAPERTUSSIS- RESP PCR PAN NOT DETECTED; B. PERTUSSIS- RESP PCR PANEL NOT DETECTED; C. PNEUMONIAE- RESP PCR PANEL NOT DETECTED; INFLUENZA B - RESP PCR PANEL NOT DETECTED; M. PNEUMONIAE- RESP PCR PANEL NOT DETECTED; PARAINFLUENZA VIRUS 1 NOT DETECTED; PARAINFLUENZA VIRUS 2 NOT DETECTED; PARAINFLUENZA VIRUS 3 NOT DETECTED; PARAINFLUENZA VIRUS 4 NOT DETECTED; RSV- RESP PCR PANEL NOT DETECTED
[2021-09-30] MEDS: MORPHINE 2 MG/ML CARPUJECT IVP PRN ×2 (15:38→21:31)
--- NOTE | 2021-09-30 21:10 | ED Physician Documentation ---
ED Addendum - Addendum Addendum: 09/30/21 21:09 Patient d/w full time staff interpreter that she was having chest discomfort about an hour ago. Repeat EKG unchanged from EKG on arrival. 09/30/21 20:39 rate 82. NSR. normal intervals. no ST or T wave changes. 2nd trop sent. 09/30/21 21:10 Patient without further epsidoes of CP. 2nd trop negative 10/01/21 05:53 AM labs ordered, to be followed up in AM by Dr. Segovia, daytime MD. renewed maintenance fluids. patient to be endorsed to daytime MD for further management and care.
[2021-09-30] MEDS: ONDANSETRON 4 MG/2 ML VIAL IVP PRN (21:30)
[2021-10-01] MEDS ORDERED: METOCLOPRAMIDE 10 MG/2 ML VIAL IVP STA ×2 (00:52→05:40)
[2021-10-01] MEDS ORDERED: ONDANSETRON 4 MG/2 ML VIAL IVP STA (05:39)
[2021-10-01] MEDS ORDERED: DEXTROSE 5%-0.45% NACL 1,000 ML IV STA ×2 (05:52→22:11)
[2021-10-01 07:07] LABS: BASOPHILS # (AUTO) 0.1 10^3/uL (0.0-0.1); BASOPHILS % (AUTO) 0.4 %; EOSINOPHILS # (AUTO) 0.1 10^3/uL (0.0-0.7); EOSINOPHILS % (AUTO) 0.4 %; HCT - HEMATOCRIT 29.7 % (37.0-47.0); HGB - HEMOGLOBIN 8.7 g/dL (12.0-16.0); LYMPHOCYTES % (AUTO) 7.3 %; MEAN CORPUSCULAR HEMOGLOBIN 21.8 pg (27.0-31.0); MEAN CORPUSCULAR HGB CONC 29.3 g/dL (32.0-36.0); MEAN CORPUSCULAR VOLUME 74.4 fL (81.0-99.0); MEAN PLATELET VOLUME 10.6 fL (7.9-10.8); MONOCYTES # (AUTO) 1.1 10^3/uL (0.0-1.0); MONOCYTES % (AUTO) 7.4 %; NEUTROPHILS % (AUTO) 84.3 %; PLT - PLATELET COUNT 310 10^3/uL (130-450); RED BLOOD COUNT 3.99 10^6/uL (4.20-5.40); RED CELL DISTRIBUTION WIDTH 18.1 % (12.0-15.0); WHITE BLOOD COUNT 14.3 x10^3/uL (4.8-10.8)
[2021-10-01 07:21] LABS: ALBUMIN 3.1 g/dL (3.2-5.5); BILIRUBIN,TOTAL 0.7 mg/dL (0.2-1.0); CALCIUM 8.6 mg/dL (8.5-10.3); CREATININE 0.7 mg/dL (0.4-1.0); POTASSIUM 3.8 mmol/L (3.5-5.0); TOTAL PROTEIN 6.2 g/dL (6.7-8.2)
[2021-10-01] MEDS: amLODIPine 5 MG TABLET PO SCH (08:22)
[2021-10-01] MEDS: MORPHINE 2 MG/ML CARPUJECT IVP PRN ×3 (08:22→20:05)
[2021-10-01] MEDS ORDERED: HYDROmorphone 1 MG/ML CARPUJECT IVP STA (10:15)
[2021-10-01] MEDS ORDERED: SODIUM CHLORIDE 0.9% 1,000 ML IV STA (10:22)
--- NOTE | 2021-10-01 10:26 | ED Physician Documentation ---
ED Addendum - Addendum Addendum: I spoke with the [facility] office services representative and was informed that at this point in time, there are no beds. They will continue to work on trying to find an opening, though the likelihood is low that patient will be able to be transferred anywhere. At this point in time, the patient's white blood cell count has improved, but she does continue to have some right groin pain. She has not been febrile here, and blood pressure has been stable. Her lactic acid level was normal yesterday and we will repeat this today. The patient's GFR has gone up from 68 yesterday to 79 today. I will give her some IV fluids to try to mitigate any prerenal effect of dehydration and improve her kidney function. 10/01/21 10:24
[2021-10-01] MEDS: ONDANSETRON 4 MG/2 ML VIAL IVP PRN (12:14)
[2021-10-01] MEDS: levoFLOXacin 500 MG/100 ML 500 MG/100 ML BAG IV SCH (12:14)
[2021-10-01] MEDS ORDERED: PROCHLORPERAZINE 10 MG/2 ML VIAL IVP STA (17:27)
[2021-10-02 07:37] LABS: BASOPHILS % (AUTO) 0.2 %; EOSINOPHILS % (AUTO) 0.2 %; HCT - HEMATOCRIT 28.3 % (37.0-47.0); HGB - HEMOGLOBIN 8.1 g/dL (12.0-16.0); LYMPHOCYTES # (AUTO) 0.8 10^3/uL (1.5-3.5); MEAN CORPUSCULAR HEMOGLOBIN 21.5 pg (27.0-31.0); MEAN CORPUSCULAR HGB CONC 28.6 g/dL (32.0-36.0); MEAN CORPUSCULAR VOLUME 75.1 fL (81.0-99.0); MEAN PLATELET VOLUME 10.9 fL (7.9-10.8); MONOCYTES # (AUTO) 1.1 10^3/uL (0.0-1.0); MONOCYTES % (AUTO) 9.8 %; NEUTROPHILS # (AUTO) 9.5 10^3/uL (1.5-6.6); NEUTROPHILS % (AUTO) 82.2 %; PLT - PLATELET COUNT 288 10^3/uL (130-450); RED BLOOD COUNT 3.77 10^6/uL (4.20-5.40); RED CELL DISTRIBUTION WIDTH 18.2 % (12.0-15.0); WHITE BLOOD COUNT 11.6 x10^3/uL (4.8-10.8)
[2021-10-02 07:49] LABS: SLIDE REVIEW? Indicated
[2021-10-02 07:53] LABS: CALCIUM 8.6 mg/dL (8.5-10.3); CREATININE 0.8 mg/dL (0.4-1.0); POTASSIUM 3.7 mmol/L (3.5-5.0)
[2021-10-02 08:16] LABS: PLATELET ESTIMATE, MANUAL NORMAL (130-450,000) (NORMAL); PLATELET MORPHOLOGY NORMAL APPEARANCE (NORMAL); RBC MORPHOLOGY (MULTIPLE) 2+ HYPOCHROMASIA (NORMAL)
[2021-10-02] MEDS: amLODIPine 5 MG TABLET PO SCH (09:00)
--- NOTE | 2021-10-02 09:57 | CT Report ---
PROCEDURE: Abdomen/Pelvis WO INDICATIONS: eval progression of stone TECHNIQUE: Noncontrast 5 mm thick sections acquired from the diaphragms to the symphysis. 5 mm coronal and sagi ttal reformats were then performed. For radiation dose reduction, the following was used: automated exposure control, adjustment of mA and/or kV according to patient size. COMPARISON: CT angiogram abdomen pelvis 09/30/2021. FINDINGS: Image quality: Excellent. ABDOMEN: Lung bases: There is mild dependent atelectasis bilaterally. Heart size is normal. A moderate size hi atal hernia is redemonstrated. Solid organs: Noncontrast evaluation of the liver demonstrates no focal hepatic lesions. Gallbladder is surgically absent. Biliary system is non dilated. The spleen is normal in size. Pancreas demonstr ates no peripancreatic fat stranding or fluid collections. No adrenal nodules. An obstructing ureteral stone measuring up to 0.5 cm within the mid right ureter demonstrates minimal distal progression compared to the prior study. There is persistent moderate right hydronephrosis pr oximal to the stone with perinephric and periureteral fat stranding. The distal right ureter is nondi stended. There is no left hydronephrosis. Multiple left parapelvic renal cysts are demonstrated. Left ureter is nondistended. Peritoneum and bowel: Unenhanced bowel loops demonstrate normal wall thickness and caliber. No peric ecal inflammatory changes to suggest appendicitis. There is colonic diverticulosis without acute dive rticulitis. No free fluid or air. Nodes and vessels: No retroperitoneal or mesenteric adenopathy by size criteria. Aorta and inferior vena cava are normal in caliber. Miscellaneous: No ventral hernias. PELVIS: Genitourinary: Bladder wall thickness is normal. Miscellaneous: No inguinal hernias or adenopathy. Bones: No suspicious bony lesions. No vertebral body compression fractures. There is severe degener ative disc disease at L3-L4 and moderate to severe degeneration at L4-5 and L5-S1. IMPRESSION: 1. Obstructing urinary stone in the mid right ureter demonstrates minimal distal progression compared to the prior study. Persistent moderate right hydroureteronephrosis demonstrated proximal to the sto ne. 2. Colonic diverticulosis. Reviewed by: Yovani Rock MD on 10/02/2021 9:56 AM PST Approved by: Yovani Rock MD on 10/02/2021 9:56 AM PST Station ID: [id number]
[2021-10-02] MEDS ORDERED: PANTOPRAZOLE 40 MG TABLET PO STA (10:28)
[2021-10-02] MEDS ORDERED: LOPERAMIDE 2 MG CAPSULE PO STA (10:28)
[2021-10-02] MEDS: levoFLOXacin 500 MG/100 ML 500 MG/100 ML BAG IV SCH (11:09)
[2021-10-02] MEDS: MORPHINE 2 MG/ML CARPUJECT IVP PRN ×2 (14:40→20:42)
[2021-10-02] MEDS ORDERED: LACTATED RINGERS 1,000 ML IV STA (15:56)
--- NOTE | 2021-10-02 16:56 | ED Physician Documentation ---
ED Addendum - Addendum Addendum: 10/02/21 16:55The patient remains in the ER. She continues with some low-level IV fluids and antibiotics at appropriate dosing. We did repeat the CT scan earlier today to see if she had passed her stone but it was only minimally advanced in the ureter. Still some signs of hydronephrosis. Her vitals remained stable without any fever. At this point the patient remains here pending transfer. [place] [facility] [place] able to [place] multiple facilities and still no beds available.
[2021-10-02] MEDS: ONDANSETRON 4 MG/2 ML VIAL IVP PRN (17:05)
[2021-10-02] MEDS: SACCHAROMYCES BOULARDII 250 MG CAPSULE PO SCH (17:40)
[2021-10-02] MEDS: LACTATED RINGERS 1,000 ML IV SCH (23:33)
[2021-10-03] MEDS: MORPHINE 2 MG/ML CARPUJECT IVP PRN (02:56)
[2021-10-03] MEDS: LACTATED RINGERS 1,000 ML IV SCH (05:25)
--- NOTE | 2021-10-03 07:18 | ED Physician Documentation ---
ED Addendum - Addendum Addendum: 10/03/21 07:18 d/w hospitalist Dr. Greoc who accepts in transfer to [facility] [place]. 10/03/21 07:23 Disposition transfer Condition stable Impression 1. uti 2. renal stone 3. hydronephrosis 10/03/21 07:24
--- NOTE | 2021-10-03 07:48 | ED Physician Documentation ---
ED Addendum - Addendum Addendum: 10/03/21 07:46 The patient awoke and felt confused of not knowing exactly where she was and what was happening. She has been here in the ER for 3 to 4 days now. She was able to speak in complete sentences. There were no focal deficits noted. Her temperature and blood sugar were checked and were okay. She states she did feel a little chilled so we will get her a new blanket. Otherwise nonfocal exam at this time. Within a few minutes she was starting to feel more oriented to where she was and remembering the last few days. I think she had just some confusion from being here in the ER for several days. If its not focal and not sustaining symptoms so does not seem cerebrovascular. We could recheck electrolytes but they were checked yesterday and her sodium was good at that time. She is afebrile right now with normal vitals and so does not appear septic. She has been on fluoroquinolone IV antibiotics. Consideration could be for some side effects there but again seems a transient symptoms this morning for just a few minutes. NIHSS - Level of Consciousness Level of consciousness: (0) Alert, Keenly responsive LOC Questions: (0) Answers both Q's correct LOC Commands: (0) Performs both correctly - Gaze Best Gaze: (0) Normal - Visual Visual: (0) No loss - Facial Palsy Facial Palsy: (0) Normal, symmetrical movement - Motor Arms (both separate) Motor Arm (right): (0) No drift Motor Arm (left): (0) No drift - Motor Legs (both separate) Motor Leg (right): (0) No drift Motor Leg (left): (0) No drift - Limb Ataxia Limb Ataxia: (0) Absent - Sensory Sensory: (0) Normal - Best Language Best Language: (0) No aphasia - Dysarthria Dysarthria: (0) Normal - Extinction and Inattention (formally neg Extinction and inattention: (0) No abnormality - Total Score/Results Total Score/Result: 0
[2021-10-03] MEDS: SACCHAROMYCES BOULARDII 250 MG CAPSULE PO SCH (08:26)
[2021-10-03] MEDS: amLODIPine 5 MG TABLET PO SCH (08:26)
[2021-10-03] MEDS: levoFLOXacin 500 MG/100 ML 500 MG/100 ML BAG IV SCH (11:07)
[2021-10-03 11:42] VITALS: BP 152/53
[2021-10-03] MEDS: ONDANSETRON 4 MG/2 ML VIAL IVP PRN (12:46)
== END 2021-10-03 13:08 | disposition short-term general hospital (02) ==
LOC: EDUNIT# → ED 09:52
DX: N13.2 Hydronephrosis with renal and ureteral calculous obstruction (principal); N39.0 Urinary tract infection, site not specified; I48.91 Unspecified atrial fibrillation; Z79.01 Long term (current) use of anticoagulants; I10 Essential (primary) hypertension; Z20.822 Contact with and (suspected) exposure to COVID-19
CPT/HCPCS: 36415; 71275; 74174; 74176; 80048; 80053; 81001; 82272; 83605; 83690; 84484; 85025; 87040; 87077; 87086; 87181; 87631; 93005; 96361; 96365; 96366; 96375; 96376; 99285; A9270; J1170; J2765; J7120; Q9967; 0202U; 81003

== ENCOUNTER 2021-10-19 08:00 | Outpatient (CLI) | payer MEDICARE ==
[2021-10-19 18:43] LABS: BILIRUBIN,URINE NEGATIVE (NEGATIVE); GLUCOSE, URINE (UA) NEGATIVE (NEGATIVE); KETONES,URINE (UA) NEGATIVE (NEGATIVE); LEUKOCYTE ESTERASE, URINE SMALL (NEGATIVE); NITRITE,URINE NEGATIVE (NEGATIVE); OCCULT BLOOD,URINE LARGE (NEGATIVE); PH,URINE 6.5 PH (5.0-7.5); PROTEIN,URINE 100 mg/dL (NEGATIVE); UROBILINOGEN,URINE 0.2 (NORMAL) E.U./dL (NORMAL)
[2021-10-19 19:10] LABS: CLARITY,URINE HAZY (CLEAR)
[2021-10-19 19:11] LABS: AMORPHOUS SEDIMENT,UR Few /LPF; BACTERIA,URINE Few /HPF (None Seen); SQUAMOUS EPITHELIAL CELL,UR FEW Squamous (<= Few)
== END 2021-10-19 23:59 ==
LOC: LAB.R 08:00
PROVIDERS: ATTEND Internal Medicine
DX: N13.9 Obstructive and reflux uropathy, unspecified (principal); R39.9 Unspecified symptoms and signs involving the genitourinary system; N20.0 Calculus of kidney
CPT/HCPCS: 81001; 81003; 87086

== ENCOUNTER 2021-10-20 11:34 | Outpatient (CLI) | payer MEDICARE ==
[2021-10-20 11:46] LABS: BASOPHILS # (AUTO) 0.1 10^3/uL (0.0-0.1); BASOPHILS % (AUTO) 1.2 %; EOSINOPHILS # (AUTO) 0.1 10^3/uL (0.0-0.7); EOSINOPHILS % (AUTO) 0.8 %; HGB - HEMOGLOBIN 9.1 g/dL (12.0-16.0); LYMPHOCYTES # (AUTO) 1.3 10^3/uL (1.5-3.5); LYMPHOCYTES % (AUTO) 14.4 %; MEAN CORPUSCULAR HEMOGLOBIN 20.9 pg (27.0-31.0); MEAN CORPUSCULAR HGB CONC 28.4 g/dL (32.0-36.0); MEAN CORPUSCULAR VOLUME 73.6 fL (81.0-99.0); MEAN PLATELET VOLUME 9.5 fL (7.9-10.8); MONOCYTES # (AUTO) 0.6 10^3/uL (0.0-1.0); MONOCYTES % (AUTO) 6.8 %; NEUTROPHILS # (AUTO) 6.8 10^3/uL (1.5-6.6); NEUTROPHILS % (AUTO) 76.4 %; PLT - PLATELET COUNT 698 10^3/uL (130-450); RED BLOOD COUNT 4.35 10^6/uL (4.20-5.40); RED CELL DISTRIBUTION WIDTH 18.4 % (12.0-15.0)
[2021-10-20 12:09] LABS: ALBUMIN 3.9 g/dL (3.2-5.5); ALBUMIN/GLOBULIN RATIO 1.2 (1.0-2.2); ALKALINE PHOSPHATASE 65 IU/L (42-121); ALT ALANINE AMINOTRANSFERASE 15 IU/L (10-60); AST ASPARTATE AMINOTRANSFERASE 15 IU/L (10-42); BILIRUBIN,TOTAL 0.5 mg/dL (0.2-1.0); BUN - BLOOD UREA NITROGEN 15 mg/dL (6-20); CALCIUM 9.2 mg/dL (8.5-10.3); CARBON DIOXIDE - CO2 25 mmol/L (21-32); CHLORIDE 102 mmol/L (101-111); CHOL/HDL RATIO 2.9 (<4.4); CHOLESTEROL 150 mg/dL; CREATININE 0.9 mg/dL (0.4-1.0); GFR - MDRD 59 (>89); GLUCOSE 134 mg/dL (70-100); HDL CHOLESTEROL 52 mg/dL; LDL CHOLESTEROL,CALCULATED 65 mg/dL; LDL/HDL RATIO 1.3 (<4.4); SODIUM 137 mmol/L (135-145); TOTAL PROTEIN 7.2 g/dL (6.7-8.2); TRIGLYCERIDES 163 mg/dL; VLDL CHOLESTEROL 33 mg/dL
[2021-10-21 20:53] LABS: ESTIMATED AVERAGE GLUCOSE 108 mg/dL (70-100); HEMOGLOBIN A1c% 5.4 % (4.27-6.07)
== END 2021-10-20 11:35 | disposition home or self-care (01) ==
LOC: LAB 11:34
PROVIDERS: ATTEND Internal Medicine
DX: E87.6 Hypokalemia (principal); Z13.6 Encounter for screening for cardiovascular disorders; Z79.899 Other long term (current) drug therapy; R06.00 Dyspnea, unspecified; I48.91 Unspecified atrial fibrillation; R55 Syncope and collapse; R11.0 Nausea; R73.01 Impaired fasting glucose
CPT/HCPCS: 36415; 80053; 80061; 83036; 83721; 84443; 85025

== ENCOUNTER 2022-08-24 11:03 | Outpatient (CLI) | payer MEDICARE ==
[2022-08-24 11:40] LABS: % IRON SATURATION 42 % (20-50); IRON 212 ug/dL (28-170); TOTAL IRON BINDING CAPACITY 500 ug/dL (250-450); TRANSFERRIN 357 mg/dL (192-382)
[2022-08-24 12:02] LABS: BASOPHILS # (AUTO) 0.1 10^3/uL (0.0-0.1); BASOPHILS % (AUTO) 1.2 %; EOSINOPHILS # (AUTO) 0.1 10^3/uL (0.0-0.7); EOSINOPHILS % (AUTO) 1.7 %; HCT - HEMATOCRIT 44.8 % (37.0-47.0); HGB - HEMOGLOBIN 12.3 g/dL (12.0-16.0); LYMPHOCYTES # (AUTO) 1.2 10^3/uL (1.5-3.5); LYMPHOCYTES % (AUTO) 18.3 %; MEAN CORPUSCULAR HEMOGLOBIN 21.5 pg (27.0-31.0); MEAN CORPUSCULAR HGB CONC 27.5 g/dL (32.0-36.0); MEAN CORPUSCULAR VOLUME 78.5 fL (81.0-99.0); MEAN PLATELET VOLUME 9.5 fL (7.9-10.8); MONOCYTES # (AUTO) 0.5 10^3/uL (0.0-1.0); MONOCYTES % (AUTO) 7.2 %; NEUTROPHILS # (AUTO) 4.6 10^3/uL (1.5-6.6); NEUTROPHILS % (AUTO) 71.3 %; PLT - PLATELET COUNT 298 10^3/uL (130-450); RED BLOOD COUNT 5.71 10^6/uL (4.20-5.40); WHITE BLOOD COUNT 6.5 x10^3/uL (4.8-10.8)
[2022-08-24 12:06] LABS: PLATELET ESTIMATE, MANUAL NORMAL (130-450,000) (NORMAL); PLATELET MORPHOLOGY NORMAL APPEARANCE (NORMAL); SLIDE REVIEW? Indicated; WBC MORPHOLOGY (MULTIPLE) NORMAL APPEARANCE (NORMAL)
== END 2022-08-24 11:04 | disposition home or self-care (01) ==
LOC: LAB 11:03
PROVIDERS: ATTEND Internal Medicine
DX: D64.9 Anemia, unspecified (principal); I10 Essential (primary) hypertension; G62.9 Polyneuropathy, unspecified
CPT/HCPCS: 36415; 82728; 83540; 84466; 85025

== ENCOUNTER 2022-11-24 10:59 | Outpatient (CLI) | payer MEDICARE ==
[2022-11-24 11:15] LABS: BASOPHILS # (AUTO) 0.1 10^3/uL (0.0-0.1); BASOPHILS % (AUTO) 0.8 %; EOSINOPHILS # (AUTO) 0.1 10^3/uL (0.0-0.7); EOSINOPHILS % (AUTO) 1.4 %; HCT - HEMATOCRIT 53.2 % (37.0-47.0); HGB - HEMOGLOBIN 16.7 g/dL (12.0-16.0); LYMPHOCYTES # (AUTO) 1.6 10^3/uL (1.5-3.5); LYMPHOCYTES % (AUTO) 16.6 %; MEAN CORPUSCULAR HEMOGLOBIN 28.2 pg (27.0-31.0); MEAN CORPUSCULAR HGB CONC 31.4 g/dL (32.0-36.0); MEAN CORPUSCULAR VOLUME 89.7 fL (81.0-99.0); MEAN PLATELET VOLUME 9.4 fL (7.9-10.8); MONOCYTES # (AUTO) 0.6 10^3/uL (0.0-1.0); NEUTROPHILS # (AUTO) 7.4 10^3/uL (1.5-6.6); PLT - PLATELET COUNT 271 10^3/uL (130-450); RED BLOOD COUNT 5.93 10^6/uL (4.20-5.40); RED CELL DISTRIBUTION WIDTH 17.2 % (12.0-15.0); WHITE BLOOD COUNT 9.8 x10^3/uL (4.8-10.8)
[2022-11-24 11:32] LABS: % IRON SATURATION 32 % (20-50); ALBUMIN 4.4 g/dL (3.2-5.5); ALBUMIN/GLOBULIN RATIO 1.3 (1.0-2.2); ALKALINE PHOSPHATASE 64 IU/L (42-121); ALT ALANINE AMINOTRANSFERASE 28 IU/L (10-60); AST ASPARTATE AMINOTRANSFERASE 23 IU/L (10-42); BILIRUBIN,TOTAL 0.6 mg/dL (0.2-1.0); BUN - BLOOD UREA NITROGEN 19 mg/dL (6-20); CALCIUM 10.2 mg/dL (8.5-10.3); CARBON DIOXIDE - CO2 29 mmol/L (21-32); CHLORIDE 104 mmol/L (101-111); CHOL/HDL RATIO 3.4 (<4.4); CHOLESTEROL 176 mg/dL; CREATININE 0.8 mg/dL (0.4-1.0); GFR - MDRD 68 (>89); GLUCOSE 108 mg/dL (70-100); HDL CHOLESTEROL 52 mg/dL; IRON 141 ug/dL (28-170); LDL CHOLESTEROL,CALCULATED 91 mg/dL; LDL/HDL RATIO 1.8 (<4.4); POTASSIUM 4.3 mmol/L (3.5-5.0); SODIUM 142 mmol/L (135-145); TOTAL IRON BINDING CAPACITY 434 ug/dL (250-450); TOTAL PROTEIN 7.9 g/dL (6.7-8.2); TRANSFERRIN 310 mg/dL (192-382); TRIGLYCERIDES 163 mg/dL; VLDL CHOLESTEROL 33 mg/dL
[2022-11-24 11:39] LABS: ESTIMATED AVERAGE GLUCOSE 117 mg/dL (70-100); HEMOGLOBIN A1c% 5.7 % (4.27-6.07)
[2022-11-24 11:43] LABS: THYROID STIMULATING HORMONE 2.23 uIU/mL (0.34-5.60)
[2022-11-24 11:48] LABS: FERRITIN 34.5 ng/mL (11.0-306.8)
== END 2022-11-24 11:00 | disposition home or self-care (01) ==
LOC: LAB 10:59
PROVIDERS: ATTEND Internal Medicine
DX: I48.91 Unspecified atrial fibrillation (principal); I10 Essential (primary) hypertension; D50.9 Iron deficiency anemia, unspecified; M81.0 Age-related osteoporosis without current pathological fracture; Z79.899 Other long term (current) drug therapy; E03.8 Other specified hypothyroidism
CPT/HCPCS: 36415; 80053; 80061; 82306; 82728; 83036; 83540; 83721; 84443; 84466; 85025

== ENCOUNTER 2023-01-04 11:02 | Outpatient (CLI) | payer MEDICARE ==
--- NOTE | 2023-01-06 10:49 | Mammography Report ---
BILATERAL DIGITAL SCREENING MAMMOGRAM 3D/2D: 01/04/2023 CLINICAL: Routine screening. Comparison is made to exams dated: 12/11/2021 mammogram, 12/11/2021 mammogram - [facility], mammogram, 09/11/2019 mammogram, 08/30/2019 mammogram, and 08/29/2018 mammogram - [facility]. There are scattered areas of fibroglandular density in both breasts (category b / 25%-50% glandular t issue). There are benign calcifications in both breasts. No significant masses, calcifications, or other findings are seen in either breast. There has been no significant interval change. IMPRESSION: BENIGN There is no mammographic evidence of malignancy. A 1 year screening mammogram is recommended. This exam was interpreted at Station ID: [id number]. NOTE: For mammograms, a report in lay terms will be sent to the patient. Approximately 15% of breast malignancies will not be visualized mammographically. In the management of a palpable breast mass, a negative mammogram must not discourage biopsy of a clinically suspicious lesion. Electronically Signed By: Kane amaya/jony:01/05/2023 09:48:42 letter sent: No_Letter ACR BI-RADS Category 2: Benign Finding(s) 3342F PARENCHYMAL PATTERN: (A) - The breast(s) demonstrate(s) scattered fibroglandular densities. BI-RADS CATEGORY: (2) - 2 Mammogram [id number] 1 year screening LATERALITY: (B)
== END 2023-01-04 11:03 | disposition home or self-care (01) ==
LOC: DI 11:02
PROVIDERS: ATTEND Internal Medicine
DX: Z12.31 Encounter for screening mammogram for malignant neoplasm of breast (principal)

== ENCOUNTER 2023-04-18 10:11 | Outpatient (CLI) | payer MEDICARE | END 2023-04-18 10:12 | disposition critical access hospital (66) | LOC: EMS 10:11 | DX: R47.1 Dysarthria and anarthria (principal); R51.9 Headache, unspecified; I10 Essential (primary) hypertension | CPT/HCPCS: A0425; A0427 ==

== ENCOUNTER 2023-04-18 10:20 | Emergency (ER) | payer MEDICARE ==
[2023-04-18] MEDS ORDERED: iohexoL-300 100 ML VIAL ONE (10:47)
[2023-04-18 10:52] LABS: BASOPHILS # (AUTO) 0.1 10^3/uL (0.0-0.1); BASOPHILS % (AUTO) 0.7 %; EOSINOPHILS # (AUTO) 0.1 10^3/uL (0.0-0.7); EOSINOPHILS % (AUTO) 0.8 %; HGB - HEMOGLOBIN 16.1 g/dL (12.0-16.0); LYMPHOCYTES # (AUTO) 1.2 10^3/uL (1.5-3.5); LYMPHOCYTES % (AUTO) 13.5 %; MEAN CORPUSCULAR HEMOGLOBIN 31.8 pg (27.0-31.0); MEAN CORPUSCULAR HGB CONC 31.6 g/dL (32.0-36.0); MEAN CORPUSCULAR VOLUME 100.6 fL (81.0-99.0); MONOCYTES # (AUTO) 0.6 10^3/uL (0.0-1.0); MONOCYTES % (AUTO) 6.6 %; NEUTROPHILS # (AUTO) 6.8 10^3/uL (1.5-6.6); NEUTROPHILS % (AUTO) 78.1 %; PLT - PLATELET COUNT 230 10^3/uL (130-450); RED BLOOD COUNT 5.07 10^6/uL (4.20-5.40); RED CELL DISTRIBUTION WIDTH 12.7 % (12.0-15.0); WHITE BLOOD COUNT 8.8 x10^3/uL (4.8-10.8)
[2023-04-18 11:03] LABS: INR 1.3 (0.8-1.2); PT - PROTHROMBIN TIME 13.7 secs (9.9-12.6)
[2023-04-18 11:24] LABS: ALBUMIN/GLOBULIN RATIO 1.3 (1.0-2.2); BILIRUBIN,TOTAL 0.5 mg/dL (0.2-1.0); CALCIUM 9.4 mg/dL (8.5-10.3); CREATININE 0.8 mg/dL (0.6-1.3); POTASSIUM 4.4 mmol/L (3.5-4.5)
[2023-04-18 12:26] LABS: BILIRUBIN,URINE NEGATIVE (NEGATIVE); GLUCOSE, URINE (UA) NEGATIVE (NEGATIVE); KETONES,URINE (UA) NEGATIVE (NEGATIVE); LEUKOCYTE ESTERASE, URINE NEGATIVE (NEGATIVE); NITRITE,URINE NEGATIVE (NEGATIVE); OCCULT BLOOD,URINE NEGATIVE (NEGATIVE); PH,URINE 5.5 PH (5.0-7.5); PROTEIN,URINE NEGATIVE (NEGATIVE); UROBILINOGEN,URINE 0.2 (NORMAL) E.U./dL (NORMAL)
[2023-04-18] MEDS ORDERED: iohexoL-300 100 ML VIAL IVP ONE (12:28)
--- NOTE | 2023-04-18 12:30 | CT Report ---
PROCEDURE: HEAD WO INDICATIONS: abnormal speech/on xarelto TECHNIQUE: Noncontrast 4.5 mm thick angled axial sections acquired from the foramen magnum to the vertex. For r adiation dose reduction, the following was used: automated exposure control, adjustment of mA and/or kV according to patient size. COMPARISON: 07/09/2021 FINDINGS: Image quality: Excellent. CSF spaces: Basal cisterns are patent. No extra-axial fluid collections. Ventricles are normal in size and shape. Brain: No midline shift. No intracranial masses or hemorrhage. Age-appropriate cerebral cortical vo lume loss and scattered white matter hypodensity. Nails-white matter interface is normal. Skull and face: Calvarium and visualized facial bones are intact, without suspicious lesions. Sinuses: Visualized sinuses and mastoids are clear. IMPRESSION: 1. No CT evidence of acute intracranial process. 2. Age-appropriate exam. Reviewed by: Emma Orozco MD on 04/18/2023 12:29 PM PDT Approved by: Emma Orozco MD on 04/18/2023 12:29 PM PDT Station ID: [id number]
[2023-04-18 12:32] LABS: CLARITY,URINE CLEAR (CLEAR)
[2023-04-18 12:56] VITALS: BP 168/63
[2023-04-18] MEDS ORDERED: SODIUM CHLORIDE 0.9% 500 ML IV STA (13:16)
--- NOTE | 2023-04-18 13:35 | ED Physician Documentation ---
History of Present Illness - Stated complaint Stated Complaint: CODE STROKE - Chief complaint Chief Complaint: Neuro - History obtained from History obtained from: Patient, EMS - Additonal information Additional information: Patient is an 87-year-old female with a history of TIAs, atrial fibrillation on Xarelto Presenting for evaluation of abnormal speech. Patient states that since yesterday afternoon she has had a headache. She states that she did talk to her daughter yesterday around 4 PM and then went to bed around 9 PM. This morning she feels like she is having trouble in expressing her thoughts. She reports a frontal headache. She is on Xarelto. She does have a history of TIAs. She occasionally gets headaches. Denies any recent trauma or injury. Denies fever, chest pain, difficulty breathing, abdominal symptoms. Patient is unable to get an MRI due to prior stapectomy. 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 HEENT: Tonsil/Adenoidectomy - Present Medications Home Medications: Ambulatory Orders Medication Instructions Recorded Confirmed Omeprazole [PriLOSEC] 40 mg PO QDAC 09/04/13 05/27/21 Cholestyramine/Aspartame 4 gm PO DAILY 06/16/19 05/27/21 [Prevalite Packet] Diclofenac Sodium [Diclo Gel] 1 applic TOP PRN PRN 06/16/19 05/27/21 Amlodipine Besylate 10 mg PO DAILY 06/18/19 05/27/21 Loperamide [Imodium] 2 mg PO QID PRN capsule 06/18/19 05/27/21 Psyllium Husk [Fiber] 3 cap PO BID 06/18/19 05/27/21 Rivaroxaban [Xarelto] 20 mg PO DAILY 05/27/21 05/27/21 dimenhyDRINATE [Dimenhydrinate] 50 mg PO DAILY 05/27/21 05/27/21 - Allergies Allergies/Adverse Reactions: Allergies Allergy/AdvReac Type Severity Reaction Status Date / Time latex Allergy Intermediate swelling Verified 04/18/23 10:31 ascorbic acid Allergy Unknown Unknown Verified 04/18/23 10:31 Penicillins AdvReac Intermediate Rash Verified 04/18/23 10:31 Sulfa (Sulfonamide AdvReac Intermediate Itching Verified 04/18/23 10:31 Antibiotics) - Social History Does the pt smoke?: No Smoking Status: Never smoker Does the pt drink ETOH?: No Does the pt have substance abuse?: No - Immunizations Immunizations are current?: Yes - POLST Patient has POLST: No Results - Vitals Vitals: Vital Signs - 24 hr 04/18/23 04/18/23 10:24 12:30 Temperature 36.4 C L Heart Rate 66 60 Respiratory 16 17 Rate Blood Pressure 171/60 H 168/63 H O2 Saturation 99 97 Oxygen O2 Source Room air - EKG (time done) 1046 EKG releavant findings:: EKG personally interpreted by author of this note. Relevant findings are: Rate 61, normal sinus rhythm, no STEMI, no ST depressions Rate: Rate (enter#) (61) Rhythm: NSR Intervals: No: Prolonged QT Ischemia: No: ST elevation c/w ischemia - Labs Labs: Laboratory Tests 04/18/23 04/18/23 04/18/23 10:47 10:47 10:47 WBC 8.8 RBC 5.07 Hgb 16.1 H Hct 51.0 H MCV 100.6 H MCH 31.8 H MCHC 31.6 L RDW 12.7 Plt Count 230 MPV 10.0 Neut # (Auto) 6.8 H Lymph # (Auto) 1.2 L [place] # (Auto) 0.6 Eos # (Auto) 0.1 Baso # (Auto) 0.1 Absolute Nucleated RBC 0.00 Nucleated RBC % 0.0 PT 13.7 H INR 1.3 H Sodium 138 Potassium 4.4 Chloride 107 Carbon Dioxide 25 Anion Gap 6.0 BUN 11 Creatinine 0.8 Estimated GFR (MDRD) 68 L Glucose 100 Calcium 9.4 Total Bilirubin 0.5 AST 16 ALT 12 Alkaline Phosphatase 65 Total Protein 7.0 Albumin 4.0 Globulin 3.0 Albumin/Globulin Ratio 1.3 Lipase 20 Urine Color Urine Clarity Urine pH Ur Specific [place] Urine Protein Urine Glucose (UA) Urine Ketones Urine Occult Blood Urine Nitrite Urine Bilirubin Urine Urobilinogen Ur Leukocyte Esterase Ur Microscopic Review Urine Culture Comments 04/18/23 12:05 WBC RBC Hgb Hct MCV MCH MCHC RDW Plt Count MPV Neut # (Auto) Lymph # (Auto) [place] # (Auto) Eos # (Auto) Baso # (Auto) Absolute Nucleated RBC Nucleated RBC % PT INR Sodium Potassium Chloride Carbon Dioxide Anion Gap BUN Creatinine Estimated GFR (MDRD) Glucose Calcium Total Bilirubin AST ALT Alkaline Phosphatase Total Protein Albumin Globulin Albumin/Globulin Ratio Lipase Urine Color LIGHT YELLOW Urine Clarity CLEAR Urine pH 5.5 Ur Specific [place] 1.010 Urine Protein NEGATIVE Urine Glucose (UA) NEGATIVE Urine Ketones NEGATIVE Urine Occult Blood NEGATIVE Urine Nitrite NEGATIVE Urine Bilirubin NEGATIVE Urine Urobilinogen 0.2 (NORMAL) Ur Leukocyte Esterase NEGATIVE Ur Microscopic Review NOT INDICATED Urine Culture Comments NOT INDICATED Departure - Departure Disposition: Home, Self Care Clinical Impression: Speech abnormality Condition: Stable Instructions: ED Transient Ischemic Attack Follow-Up: Shameka Velasquez MD [Primary Care Provider] - Comments: It is unclear what caused your symptoms this morning but it is reassuring that you are you have improved. Your CT scan does not show any bleeding in the brain and the CT angios do not show any blockages of the blood vessels in your head or your neck. This still could be a mini stroke but you are already on a blood thinner called Xarelto. It could also be related to a migraine. I would recommend close follow-up with your primary care provider. You may need to be referred back to [facility]. At this time I do not see any reason for admission to the hospital. However if you develop any worsening symptoms please consider return to the emergency department. Forms: PCP List
--- NOTE | 2023-04-18 14:54 | CT Report ---
PROCEDURE: CT Angio Head/Neck INDICATIONS: abnormal speech/right leg weak TECHNIQUE: After the administration of intravenous contrast, 1 mm thick sections acquired from the aortic arch t hrough the Lequire of Baptiste. Post-contrast 4.5 mm thick sections then re-acquired from the foramen m agnum to the vertex. qikmqji-prfpjiygu-nhbjezhocr (MIP) and/or volume rendering reformats were acqui red of the central intracranial vasculature and neck separately. For radiation dose reduction, the f ollowing was used: automated exposure control, adjustment of mA and/or kV according to patient size. CONTRAST: 80ml omni 300 COMPARISON: 07/09/2021 FINDINGS: Image quality: Excellent. HEAD CT ANGIOGRAPHY: Anterior circulation: Atherosclerotic vascular calcification noted in the cavernous segments of both internal carotid arteries. The flow within the paired anterior cerebral arteries is normal and symme tric. The flow within the middle cerebral arteries is normal and symmetric. The anterior communicat ing artery is seen. No aneurysms are seen. Posterior circulation: Visualized portions of the vertebral arteries demonstrate normal caliber, and join to form a normal appearing basilar artery. Hypoplastic right P1 ACTIVITY MANAGER with patent posterior commu nicating artery NECK CT ANGIOGRAPHY: Carotid system: The great vessels demonstrate a conventional anatomy as they arise from the aortic a rch. The origins of the common carotid arteries appear patent. The common carotid arteries demonstr ate normal caliber and courses. The bifurcation regions are both widely patent. The internal caroti d arteries demonstrate normal calibers and courses. Posterior circulation: The origins of the vertebral arteries both appear widely patent. The more ross perior extracranial portions of both vertebral arteries also demonstrate normal courses and calibers. They join to form a normal appearing basilar artery. Soft tissues: 3.1 cm right thyroid nodule, stable from prior exam Bones: No suspicious bony lesions. Visualized cervical spine appears normally aligned. Degenerativ e disc disease in the cervical spine IMPRESSION: Unremarkable CT angiogram of the head and neck without intracranial large vessel occlusion, aneurysm or vascular malformation. Stable right thyroid nodule The estimate of stenosis included in the report of the imaging study was calculated using the NASCET method Reviewed by: Honorio Fallon MD on 04/18/2023 1:53 PM AKDT Approved by: Honorio Fallon MD on 04/18/2023 1:53 PM AKDT Station ID: [id number]
== END 2023-04-18 17:21 | disposition home or self-care (01) ==
LOC: EDUNIT# → ED 10:20
DX: R47.02 Dysphasia (principal); R51.9 Headache, unspecified
CPT/HCPCS: 36415; 70450; 70496; 70498; 80053; 81003; 83690; 85025; 85610; 93005; 99283; 99284; Q9967; 81001; 87086

== ENCOUNTER 2023-05-26 08:47 | Inpatient (IN) | payer MEDICARE ==
--- NOTE | 2023-05-26 09:38 | XRAY Report ---
PROCEDURE: Chest 1 View X-Ray INDICATIONS: dyspnea TECHNIQUE: One view of the chest was acquired. COMPARISON: None. FINDINGS: Surgical changes and devices: None. Lungs and pleura: Small pleural effusions. Mediastinum: Mediastinal contours appear normal. Heart size is normal. Bones and chest wall: No suspicious bony lesions. Overlying soft tissues appear unremarkable. IMPRESSION: Small pleural effusions. Reviewed by: Fabián Chapa on 05/26/2023 9:36 AM PDT Approved by: Fabián Chapa on 05/26/2023 9:36 AM PDT Station ID: [id number]
[2023-05-26] MEDS ORDERED: SODIUM CHLORIDE 0.9% 1,000 ML IV STA (09:44)
[2023-05-26] MEDS ORDERED: diltiaZEM INJ 5 MG/ML VIAL IVP STA ×2 (09:44→12:27)
[2023-05-26 10:08] LABS: BASOPHILS % (AUTO) 0.7 %; EOSINOPHILS % (AUTO) 0.7 %; HCT - HEMATOCRIT 50.2 % (37.0-47.0); HGB - HEMOGLOBIN 16.2 g/dL (12.0-16.0); LYMPHOCYTES # (AUTO) 0.9 10^3/uL (1.5-3.5); MEAN CORPUSCULAR HEMOGLOBIN 31.9 pg (27.0-31.0); MEAN CORPUSCULAR HGB CONC 32.3 g/dL (32.0-36.0); MEAN CORPUSCULAR VOLUME 98.8 fL (81.0-99.0); MEAN PLATELET VOLUME 10.2 fL (7.9-10.8); MONOCYTES # (AUTO) 0.5 10^3/uL (0.0-1.0); MONOCYTES % (AUTO) 9.2 %; NEUTROPHILS # (AUTO) 4.1 10^3/uL (1.5-6.6); PLT - PLATELET COUNT 214 10^3/uL (130-450); RED BLOOD COUNT 5.08 10^6/uL (4.20-5.40); RED CELL DISTRIBUTION WIDTH 14.6 % (12.0-15.0); WHITE BLOOD COUNT 5.6 x10^3/uL (4.8-10.8)
[2023-05-26] MEDS ORDERED: diltiaZEM CD 120 MG CAPSULE PO STA (10:18)
[2023-05-26 10:20] LABS: ALBUMIN/GLOBULIN RATIO 1.8 (1.0-2.2); BILIRUBIN,TOTAL 0.7 mg/dL (0.2-1.0); CALCIUM 9.6 mg/dL (8.5-10.3); CREATININE 0.8 mg/dL (0.6-1.3); POTASSIUM 3.8 mmol/L (3.5-4.5); TOTAL PROTEIN 6.2 g/dL (6.4-8.9)
[2023-05-26 10:23] LABS: CORONAVIRUS 229E-RESP PCR NOT DETECTED; CORONAVIRUS HKU1-RESP PCR NOT DETECTED; CORONAVIRUS NL63-RESP PCR NOT DETECTED
[2023-05-26 10:24] LABS: B. PARAPERTUSSIS- RESP PCR PAN NOT DETECTED; B. PERTUSSIS- RESP PCR PANEL NOT DETECTED; C. PNEUMONIAE- RESP PCR PANEL NOT DETECTED; CORONAVIRUS OC43-RESP PCR NOT DETECTED; HUMAN METAPNEUMOVIRUS NOT DETECTED; INFLUENZA A- RESP PCR PANEL NOT DETECTED; INFLUENZA B - RESP PCR PANEL NOT DETECTED; M. PNEUMONIAE- RESP PCR PANEL NOT DETECTED; PARAINFLUENZA VIRUS 1 NOT DETECTED; PARAINFLUENZA VIRUS 2 NOT DETECTED; PARAINFLUENZA VIRUS 3 NOT DETECTED; PARAINFLUENZA VIRUS 4 NOT DETECTED; RHINOVIRUS/ENTEROVIRUS NOT DETECTED; RSV- RESP PCR PANEL NOT DETECTED; SARS-CoV-2 -RESP PCR PANEL NOT DETECTED
--- NOTE | 2023-05-26 14:00 | ED Physician Documentation ---
History of Present Illness - Stated complaint Stated Complaint: SOA - Chief complaint Chief Complaint: Resp - History obtained from History obtained from: Patient, Family - Additonal information Additional information: The patient comes to the emergency department chief complaint of dyspnea and feeling weak. She states that the symptoms started about 2-1/2 weeks ago and when she was seen in the emergency department Several days ago, she was found to be in A-fib with RVR. Her amlodipine was discontinued and she was started on metoprolol after being cardioverted in the ED, but patient states the symptoms started right back up after she left and she is never felt as though she got better at all. The patient has a history of paroxysmal atrial fib and has not been known to be in A-fib for more than a short period at a time, though it is not clear whether the patient has been in A-fib at other times with rate control and just has not known about it. The patient is chronically on Xarelto for her A-fib, but does not take any rate limiting agents. The patient denies any fevers or chills. No nausea or vomiting. No chest pain that she does have a slight bit of chest tightness centrally. No other complaints at this time. 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 HEENT: Tonsil/Adenoidectomy - Present Medications Home Medications: Ambulatory Orders Medication Instructions Recorded Confirmed Omeprazole [PriLOSEC] 40 mg PO QDAC 09/04/13 05/26/23 Amlodipine Besylate 10 mg PO DAILY 06/18/19 05/26/23 Rivaroxaban [Xarelto] 20 mg PO DAILY 05/27/21 05/26/23 Gabapentin [Gralise] 300 mg PO DAILY 05/23/23 05/26/23 Metoprolol Succinate [Toprol Xl] 25 mg PO DAILY #30 tablet 05/23/23 05/26/23 Atorvastatin [Lipitor] 10 mg PO DAILY 05/26/23 05/26/23 Colestipol HCl [Colestid] 1 gm PO DAILY 05/26/23 05/26/23 - Allergies Allergies/Adverse Reactions: Allergies Allergy/AdvReac Type Severity Reaction Status Date / Time latex Allergy Intermediate swelling Verified 04/18/23 10:31 ascorbic acid Allergy Unknown Unknown Verified 04/18/23 10:31 Penicillins AdvReac Intermediate Rash Verified 04/18/23 10:31 Sulfa (Sulfonamide AdvReac Intermediate Itching Verified 04/18/23 10:31 Antibiotics) - Social History Does the pt smoke?: No Smoking Status: Never smoker Does the pt drink ETOH?: No Does the pt have substance abuse?: No - Immunizations Immunizations are current?: Yes - POLST Patient has POLST: No PD ED PE NORMAL - Vitals Vital signs reviewed: Yes - General General: No acute distress, Well developed/nourished, Other (Alert, pleasant, well-appearing elderly female in no apparent distress.) - HEENT HEENT: Atraumatic, PERRL, EOMI, Moist mucous membranes - Neck Neck: Supple, no meningeal sign - Cardiac Cardiac: No murmur, Other (Irregularly irregular rate and rhythm, tachycardic.) - Respiratory Respiratory: No respiratory distress, Clear bilaterally - Abdomen Abdomen: Soft, Non tender, Non distended - Derm Derm: Normal color, Warm and dry, No rash - Extremities Extremities: No deformity, No edema - Neuro Neuro: Alert and oriented X 3 - Psych Psych: Normal mood, Normal affect Results - Vitals Vitals: Vital Signs - 24 hr 05/26/23 05/26/23 05/26/23 09:02 10:13 10:46 Temperature 36.6 C Heart Rate 135 H 132 H 101 H Respiratory 18 21 18 Rate Blood Pressure 143/93 H 145/106 H 140/96 H O2 Saturation 97 97 94 05/26/23 05/26/23 05/26/23 11:13 12:15 12:51 Temperature Heart Rate 106 H 133 H 102 H Respiratory 18 18 22 Rate Blood Pressure 145/78 H 154/107 H 136/79 H O2 Saturation 99 97 96 05/26/23 13:28 Temperature 36.4 C L Heart Rate 103 H Respiratory 23 Rate Blood Pressure 127/92 H O2 Saturation 95 Oxygen O2 Source Room air - EKG (time done) 0913 EKG releavant findings:: EKG personally interpreted by author of this note. Relevant findings are: Rate: Rate (enter#) (135) Rhythm: Atrial fibrillation [place]: LAD QRS: Normal Ischemia: Normal ST segments Compare to prior EKG: Unchanged from prior EKG Computer interpretation: Agree with computer - Labs Labs: Laboratory Tests 05/26/23 05/26/23 05/26/23 09:16 10:01 10:01 WBC 5.6 RBC 5.08 Hgb 16.2 H Hct 50.2 H MCV 98.8 MCH 31.9 H MCHC 32.3 RDW 14.6 Plt Count 214 MPV 10.2 Neut # (Auto) 4.1 Lymph # (Auto) 0.9 L [place] # (Auto) 0.5 Eos # (Auto) 0.0 Baso # (Auto) 0.0 Absolute Nucleated RBC 0.00 Nucleated RBC % 0.0 Sodium 139 Potassium 3.8 Chloride 103 Carbon Dioxide 30 Anion Gap 6.0 BUN 12 Creatinine 0.8 Estimated GFR (MDRD) 68 L Glucose 115 H Calcium 9.6 Total Bilirubin 0.7 AST 12 ALT 18 Alkaline Phosphatase 58 Total Protein 6.2 L Albumin 4.0 Globulin 2.2 Albumin/Globulin Ratio 1.8 Lipase 31 Nasal Adenovirus (PCR) NOT DETECTED Nasal B. parapertussis DNA (PCR) NOT DETECTED Nasal Coronavir 229E PCR NOT DETECTED Nasal Coronavir HKU1 PCR NOT DETECTED Nasal Coronavir NL63 PCR NOT DETECTED Nasal Coronavir OC43 PCR NOT DETECTED Nasal Enterovir/Rhinovir PCR NOT DETECTED Nasal Influenza B PCR NOT DETECTED Nasal Influenza A PCR NOT DETECTED Nasal Parainfluen 1 PCR NOT DETECTED Nasal Parainfluen 2 PCR NOT DETECTED Nasal Parainfluen 3 PCR NOT DETECTED Nasal Parainfluen 4 PCR NOT DETECTED Nasal RSV (PCR) NOT DETECTED Nasal B.pertussis DNA PCR NOT DETECTED Nasal C.pneumoniae (PCR) NOT DETECTED Herman Human Metapneumo PCR NOT DETECTED Nasal M.pneumoniae (PCR) NOT DETECTED Nasal SARS-CoV-2 (PCR) NOT DETECTED PD Medical Decision Making - ED course Complexity details: reviewed old records, reviewed results, re-evaluated patient, considered differential, d/w patient, d/w family ED course: The patient was worked up in the emergency department with laboratory studies and EKG. She was found to be in atrial fibrillation RVR on the monitor and was treated with an initial dose of Cardizem 25 mg IV and an oral dose of long- acting Cardizem 240 mg. This did result in some rate control initially, but the patient was found to have gone back up into the 130's after couple of hours. The patient was given a second spot dose of Cardizem 25 mg and this did again have good effect for about an hour after which the patient was found to be back in the 130s in atrial fibrillation. I felt at this point she would need to be admitted to the hospital and spoke with Dr. Macedo, who did agree to admit the patient to her service. I have discussed the plan with the patient and family as well who are agreeable. The patient's daughter Clair has been reachable by cell phone at [phone]. Patient has been started on Cardizem drip. - Critical Care Time(min): 30 Comments: Critical care time was necessary, secondary to high probability of imminent and life-threatening decline, secondary to excessively high heart rate, due to atrial fibrillation with rapid ventricular response. Time Includes: Direct patient care, Review records, Reassess patient, Document care, Coordinate care, Medical consult, Family consult for tx dec, See progress note Data interpretation: Labs, Pulse ox, CXR, Prior EKG, Cardiac output Departure - Departure Disposition: 66 [facility] DC/Xfer Clinical Impression: Atrial fibrillation with RVR Condition: Serious Forms: PCP List
[2023-05-26] MEDS ORDERED: ACETAMINOPHEN 325 MG TABLET PO PRN (14:04)
[2023-05-26] MEDS ORDERED: ONDANSETRON 4 MG/2 ML VIAL IVP PRN (14:04)
[2023-05-26] MEDS: diltiaZEM INJ 125 MG in DEXTROSE 5% 100 ML IV STA (14:19)
--- NOTE | 2023-05-26 16:14 | HISTORY & PHYSICAL EXAMINATION ---
Chief Complaint - Chief Complaint Chief Complaint: SOA and weakness History of Present Illness - Admitted From Admitted From:: ED - History Obtained From History obtained from: ED provider and the patient - History of Present Illness HPI Comment/Other: This is an 87-year-old female with a history of CVA, chronic intermittent diarrhea, Atrial fib which used to be paroxysmal but now over the past 2 weeks seems to be permanent Afib. She came to the ER 4 days ago with complaints of shortness of breath and weakness and was found to be in A-fib at a rate of 160. She underwent elective synchronized cardioversion and was discharged in NSR. She had been on amlodipine and this was changed to metoprolol when leaving the ER. Her Xarelto was continued. (ER doctor first planned on using Cardizem but learned that it would interact with Xarelto). The patient states that after getting home she nearly immediately felt the same shortness of breath and weakness and has not felt better over the last 4 days. She came back to the ER because of this today. She was found to be in A-fib at a rate of 130. She received Cardizem IV 25 mg x 2 push and Cardizem CD 240 mg p.o. x1. Her blood pressure has been stable with this. The heart rate minimally improved to 120 in Afib and she was started on a Cardizem drip. The ED provider then spoke to me about this patient. She will be admitted to the ICU on a diltiazem drip to manage A-fib with RVR. 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 HEENT: reports: Tonsil/Adenoidectomy - Family & Social History Living arrangement: At home Living Situation: Alone Social History Notes: She never smoked, she only drinks alcohol at family events, she no longer drives a car because she does not "think it is safe" - Substance History Use: Uses substance without health or social issues: NONE - POLST Patient has POLST: No Meds/Allgy - Home Medications Home Medications: Ambulatory Orders Medication Instructions Recorded Confirmed Omeprazole [PriLOSEC] 40 mg PO QDAC 09/04/13 05/26/23 Amlodipine Besylate 10 mg PO DAILY 06/18/19 05/26/23 Rivaroxaban [Xarelto] 20 mg PO DAILY 05/27/21 05/26/23 Gabapentin [Gralise] 300 mg PO DAILY 05/23/23 05/26/23 Metoprolol Succinate [Toprol Xl] 25 mg PO DAILY #30 tablet 05/23/23 05/26/23 Atorvastatin [Lipitor] 10 mg PO DAILY 05/26/23 05/26/23 Colestipol HCl [Colestid] 1 gm PO DAILY 05/26/23 05/26/23 - Allergies Allergies/Adverse Reactions: Allergies Allergy/AdvReac Type Severity Reaction Status Date / Time latex Allergy Intermediate swelling Verified 04/18/23 10:31 ascorbic acid Allergy Unknown Unknown Verified 04/18/23 10:31 Penicillins AdvReac Intermediate Rash Verified 04/18/23 10:31 Sulfa (Sulfonamide AdvReac Intermediate Itching Verified 04/18/23 10:31 Antibiotics) Review of Systems - Constitutional Constitutional: reports: Fatigue, Weakness - Cardiovascular Cariovascular: reports: Exertional dyspnea, Decr. exercise tolerance, Orthopnea - Respiratory Respiratory: reports: Orthopnea, SOB with exertion - Gastrointestinal Gastrointestinal: reports: Diarrhea (Offered to have work-up with a colonoscopy and she has declined colonoscopy) - Neurological Neurological: reports: Other (He has jaw and hand tremor but has never diagnosed with Parkinsons) - All Other Systems All Other Systems: reports: Reviewed and negative Exam - Vital Signs Reviewed Vital Signs: Yes Vital Signs: Vital Signs x48h Temp Pulse Resp BP Pulse Ox 05/26/23 14:49 118 H 20 141/82 H 95 05/26/23 13:28 36.4 C L 103 H 23 127/92 H 95 05/26/23 12:51 102 H 22 136/79 H 96 05/26/23 12:15 133 H 18 154/107 H 97 05/26/23 11:13 106 H 18 145/78 H 99 05/26/23 10:46 101 H 18 140/96 H 94 05/26/23 10:13 132 H 21 145/106 H 97 05/26/23 09:02 36.6 C 135 H 18 143/93 H 97 - Physical Exam General Appearance: positive: No acute distress, Alert Eyes Bilateral: positive: Normal inspection, EOMI ENT: positive: ENT inspection nml, No signs of dehydration Neck: positive: Nml inspection, No JVD (at 80 degree upright position) Cardiovascular: positive: Irregularly irregular, Tachycardia, Systolic murmur Abdomen: positive: Non-tender, No organomegaly, Nml bowel sounds, No distention Skin: positive: Warm, Dry Neurologic/Psychiatric: positive: Oriented x3, Other (Resting tremor of jaw and right hand) Conclusion/Plan - Problem List (1) Atrial fibrillation with rapid ventricular response Conclusion/Plan: The patient has been admitted on a Cardizem drip for rate control. This is slowing her down and her underlying rhythm is atrial flutter today She was recently changed from amlodipine to oral metoprolol in hopes of maintaining sinus rhythm or at least rate control when in A-fib The patient is on Xarelto at home as her anticoagulant for stroke prophylaxis Plan: Remain in the ICU on telemetry Continue with Cardizem drip, titrate to achieve heart rate under 100 The patient could need both Metoprolol and Cardizem for rate control and I will adjust those meds as necessary, depending on her LVEF Continue with a DOAC, but we do not have Xarelto on formulary, she will be transition to Eliquis while here, at the appropriate dose for her age, weight and creatinine Will check to troponins to rule out ACS. We will assure that her TSH is ross quate to rule out hyperthyroidism Await an Echo report (2) SOB (shortness of breath) Conclusion/Plan: When she was in the ER 4 days ago her chest x-ray showed mild CHF and BNP was slightly elevated in the 300s. Today the chest x-ray does not reveal CHF and h er BNP is again in the 300's. She describes orthopnea and PND (and says this gives her insomnia) Her respiratory PCR is all negative including negative COVID Plan: We will obtain an Echocardiogram to evaluate her EF and valves and PA pressure Continue to work on rate control of the rapid A-fib I will start on IV Lasix twice daily. Follow BMP daily If she desaturates will give supplemental O2 (3) Chronic diarrhea Conclusion/Plan: He reports having this on and off ever since having gallbladder removed many years ago She currently has been having a bout of diarrhea Plan: Check stool for C. difficile. If negative for C. difficile then start Imodium as needed (4) Parkinsonian tremor Conclusion/Plan: The patient has the typical resting tremor, that resolves with intentional movement She says she has never been diagnosed with Parkinson's however Plan: I will put point this finding out to her PCP, in the summary at the time of discharge, so that Parkinson's meds can be started and she can be monitored as to their effect - Lab Results Fish Bones: 05/26/23 10:01 05/26/23 10:01 - Diagnostic Imaging Results Diagnostic Imaging Results: positive: Final report reviewed - Other Other Results/Comments: Attestation: The patient is expected to be Hospitalized for greater than 2 midnights and is expected to be discharged or transferred to another facility within 96 hours: Yes.
[2023-05-26] MEDS: SODIUM CHLORIDE FLUSH 0.9% 10 ML SYRINGE IVP SCH (16:34)
[2023-05-26] MEDS ORDERED: FUROSEMIDE 20 MG TABLET PO STA (17:35)
[2023-05-26] MEDS ORDERED: POTASSIUM CHLORIDE 20 MEQ TABLET PO ONE (17:57)
[2023-05-26] MEDS ORDERED: METOPROLOL SUCCINATE 25 MG TABLET PO SCH (21:00)
[2023-05-26] MEDS: APIXABAN 5 MG TABLET PO SCH (21:22)
[2023-05-26] MEDS: ZOLPIDEM 5 MG TABLET PO PRN (21:22)
[2023-05-26] MEDS: GABAPENTIN 300 MG CAPSULE PO SCH (21:22)
[2023-05-26] MEDS: ATORVASTATIN 10 MG TABLET PO SCH (21:22)
[2023-05-26] MEDS: FAMOTIDINE 20 MG TABLET PO SCH (21:22)
[2023-05-26] MEDS: SODIUM CHLORIDE FLUSH 0.9% 10 ML SYRINGE IVP PRN (21:23)
[2023-05-26] MEDS: POTASSIUM CHLORIDE 20 MEQ TABLET PO SCH (22:52)
[2023-05-26 23:50] LABS: PHOSPHORUS 3.2 mg/dL (2.5-4.6)
[2023-05-27] MEDS: diltiaZEM INJ 125 MG in DEXTROSE 5% 100 ML IV STA ×2 (00:42→11:29)
[2023-05-27] MEDS: POTASSIUM CHLORIDE 20 MEQ TABLET PO SCH (00:43)
[2023-05-27] MEDS: SODIUM CHLORIDE FLUSH 0.9% 10 ML SYRINGE IVP SCH ×3 (05:08→16:09)
[2023-05-27 05:11] LABS: BASOPHILS # (AUTO) 0.1 10^3/uL (0.0-0.1); BASOPHILS % (AUTO) 0.7 %; EOSINOPHILS # (AUTO) 0.1 10^3/uL (0.0-0.7); EOSINOPHILS % (AUTO) 1.3 %; HCT - HEMATOCRIT 49.1 % (37.0-47.0); HGB - HEMOGLOBIN 15.3 g/dL (12.0-16.0); LYMPHOCYTES # (AUTO) 1.5 10^3/uL (1.5-3.5); LYMPHOCYTES % (AUTO) 21.7 %; MEAN CORPUSCULAR HGB CONC 31.2 g/dL (32.0-36.0); MEAN CORPUSCULAR VOLUME 99.6 fL (81.0-99.0); MEAN PLATELET VOLUME 11.4 fL (7.9-10.8); MONOCYTES # (AUTO) 0.6 10^3/uL (0.0-1.0); MONOCYTES % (AUTO) 9.1 %; NEUTROPHILS # (AUTO) 4.5 10^3/uL (1.5-6.6); NEUTROPHILS % (AUTO) 66.9 %; PLT - PLATELET COUNT 199 10^3/uL (130-450); RED BLOOD COUNT 4.93 10^6/uL (4.20-5.40); RED CELL DISTRIBUTION WIDTH 14.6 % (12.0-15.0); WHITE BLOOD COUNT 6.7 x10^3/uL (4.8-10.8)
[2023-05-27 05:14] LABS: CALCIUM, IONIZED 1.08 mmol/L (1.15-1.33); VBG PH 7.468 (7.31-7.41)
[2023-05-27 05:28] LABS: PHOSPHORUS 3.2 mg/dL (2.5-5.0)
[2023-05-27 05:30] LABS: CALCIUM 9.1 mg/dL (8.5-10.3); CREATININE 0.7 mg/dL (0.6-1.3); MAGNESIUM 1.7 mg/dL (1.7-2.3); POTASSIUM 4.1 mmol/L (3.5-4.5)
[2023-05-27 05:38] LABS: THYROID STIMULATING HORMONE 2.16 uIU/mL (0.34-5.60)
[2023-05-27] MEDS: FUROSEMIDE 20 MG/2 ML VIAL IVP SCH ×2 (06:49→14:21)
[2023-05-27] MEDS: CALCIUM CARBONATE CHEW 500 MG TABLET PO SCH ×2 (06:49→11:39)
[2023-05-27] MEDS: SODIUM CHLORIDE FLUSH 0.9% 10 ML SYRINGE IVP PRN (06:50)
[2023-05-27] MEDS ORDERED: MAGNESIUM OXIDE 400 MG TABLET PO ONE ×2 (07:00→16:41)
[2023-05-27] MEDS: FAMOTIDINE 20 MG TABLET PO SCH ×2 (08:15→20:09)
[2023-05-27] MEDS: APIXABAN 5 MG TABLET PO SCH ×2 (08:15→20:09)
[2023-05-27] MEDS: LOPERAMIDE 2 MG CAPSULE PO PRN ×3 (08:15→20:09)
[2023-05-27] MEDS ORDERED: METOPROLOL SUCCINATE 25 MG TABLET PO SCH ×3 (09:00→21:00)
[2023-05-27] MEDS: COLESTIPOL HCL 1 GM PO SCH (11:00)
[2023-05-27] MEDS ORDERED: diltiaZEM CD 180 MG CAPSULE PO SCH (12:00)
--- NOTE | 2023-05-27 12:36 | PHARMACY PROGRESS NOTE ---
- Best Possible Medication History Admit Date and Time: 05/26/23 7960 Processed by: Pharmacy Medication History completed: Yes Patient Interview: Completed Secondary Source(s): Written medication list, Pharmacy records, Insurance records Patient states she has not started atorvastatin or colestipol yet. Dr Velasquez prescribed these medications about a week ago based on insurance records. As the person ultimately responsible for medication therapy, providers are able to order a medication from an existing home medication list in [facility] via the "Reconcile Routine" prior to Confirmation of that medication by telecommunications support. Such practice is discouraged except when the physician, in their clinical judgment, deems that a medical need exists for a medication without regard to previous use.
[2023-05-27] MEDS ORDERED: diltiaZEM INJ 5 MG/ML VIAL IVP ONE (15:13)
--- NOTE | 2023-05-27 15:37 | PROVIDER PROGRESS NOTE ---
Subjective - Subjective Pt reports feeling: Improved (Not as short of breath, able to lay supine. Diarrhea has not changed, which predated this admission) Objective - Vital Signs/Intake & Output Reviewed Vital Signs: Yes Vital Signs: Vital Signs Temp Pulse Resp BP BP Pulse Ox 05/27/23 15:25 138/81 H 05/27/23 15:00 36.5 C 112 H 20 116/96 H 95 05/27/23 13:00 115 H 20 135/75 H 95 Intake & Output: Intake & Output 05/24/23 05/25/23 05/26/23 05/27/23 23:59 23:59 23:59 23:59 Intake Total 1573.251 475.500 Output Total 702 1075 Balance 871.251 -599.500 - Objective General Appearance: positive: No acute distress, Alert Eyes Bilateral: positive: Normal inspection, EOMI ENT: positive: ENT inspection nml, No signs of dehydration Neck: positive: Nml inspection, No JVD (in 30degree upright position) Respiratory: positive: No respiratory distress, Breath sounds nml Cardiovascular: positive: No murmur, Irregularly irregular, Tachycardia Abdomen: positive: Non-tender, Nml bowel sounds, No distention Skin: positive: Warm, Dry Extremities: positive: Non-tender, Other (1+ ankle edema) Neurologic/Psychiatric: positive: Oriented x3, Motor nml - Lab Results Fish Bones: 05/27/23 04:33 05/27/23 04:33 Other Labs: Lab Results x24hrs 05/27/23 05/27/23 05/27/23 Range/Units 04:33 04:33 04:33 WBC (4.8-10.8) x10^3/uL RBC (4.20-5.40) 10^6/uL Hgb (12.0-16.0) g/dL Hct (37.0-47.0) % MCV (81.0-99.0) fL MCH (27.0-31.0) pg MCHC (32.0-36.0) g/dL RDW (12.0-15.0) % Plt Count (130-450) 10^3/uL MPV (7.9-10.8) fL Neut # (Auto) (1.5-6.6) 10^3/uL Lymph # (Auto) (1.5-3.5) 10^3/uL [place] # (Auto) (0.0-1.0) 10^3/uL Eos # (Auto) (0.0-0.7) 10^3/uL Baso # (Auto) (0.0-0.1) 10^3/uL Absolute Nucleated RBC x10^3/uL Nucleated RBC % /100WBC VBG pH 7.468 H (7.31-7.41) Ionized Calcium 1.08 L (1.15-1.33) mmol/L Sodium 139 (135-145) mmol/L Potassium 4.1 (3.5-5.0) mmol/L Chloride 105 (101-111) mmol/L Carbon Dioxide 26 (21-32) mmol/L Anion Gap 8.0 (6-13) BUN 10 (6-20) mg/dL Creatinine 0.7 (0.6-1.3) mg/dL Estimated GFR (MDRD) 79 L (>89) Glucose 114 H (74-104) mg/dL Calcium 9.1 (8.5-10.3) mg/dL Phosphorus 3.2 (2.5-4.6) mg/dL Magnesium 1.7 (1.7-2.8) mg/dL B-Natriuretic Peptide 237 H (5-100) pg/mL TSH 2.16 (0.34-5.60) uIU/mL Nasal Screen MRSA (PCR) (NEGATIVE) Stl C. diff Tox B Gene (NEGATIVE) 05/27/23 05/26/23 05/26/23 Range/Units 04:33 22:09 22:09 WBC 6.7 (4.8-10.8) x10^3/uL RBC 4.93 (4.20-5.40) 10^6/uL Hgb 15.3 (12.0-16.0) g/dL Hct 49.1 H (37.0-47.0) % MCV 99.6 H (81.0-99.0) fL MCH 31.0 (27.0-31.0) pg MCHC 31.2 L (32.0-36.0) g/dL RDW 14.6 (12.0-15.0) % Plt Count 199 (130-450) 10^3/uL MPV 11.4 H (7.9-10.8) fL Neut # (Auto) 4.5 (1.5-6.6) 10^3/uL Lymph # (Auto) 1.5 (1.5-3.5) 10^3/uL [place] # (Auto) 0.6 (0.0-1.0) 10^3/uL Eos # (Auto) 0.1 (0.0-0.7) 10^3/uL Baso # (Auto) 0.1 (0.0-0.1) 10^3/uL Absolute Nucleated RBC 0.00 x10^3/uL Nucleated RBC % 0.0 /100WBC VBG pH (7.31-7.41) Ionized Calcium (1.15-1.33) mmol/L Sodium (135-145) mmol/L Potassium 3.4 L (3.5-5.0) mmol/L Chloride (101-111) mmol/L Carbon Dioxide (21-32) mmol/L Anion Gap (6-13) BUN (6-20) mg/dL Creatinine (0.6-1.3) mg/dL Estimated GFR (MDRD) (>89) Glucose (74-104) mg/dL Calcium (8.5-10.3) mg/dL Phosphorus 3.2 (2.5-4.6) mg/dL Magnesium 2.0 (1.7-2.8) mg/dL B-Natriuretic Peptide (5-100) pg/mL TSH (0.34-5.60) uIU/mL Nasal Screen MRSA (PCR) (NEGATIVE) Stl C. diff Tox B Gene (NEGATIVE) 05/26/23 05/26/23 Range/Units 21:25 14:29 WBC (4.8-10.8) x10^3/uL RBC (4.20-5.40) 10^6/uL Hgb (12.0-16.0) g/dL Hct (37.0-47.0) % MCV (81.0-99.0) fL MCH (27.0-31.0) pg MCHC (32.0-36.0) g/dL RDW (12.0-15.0) % Plt Count (130-450) 10^3/uL MPV (7.9-10.8) fL Neut # (Auto) (1.5-6.6) 10^3/uL Lymph # (Auto) (1.5-3.5) 10^3/uL [place] # (Auto) (0.0-1.0) 10^3/uL Eos # (Auto) (0.0-0.7) 10^3/uL Baso # (Auto) (0.0-0.1) 10^3/uL Absolute Nucleated RBC x10^3/uL Nucleated RBC % /100WBC VBG pH (7.31-7.41) Ionized Calcium (1.15-1.33) mmol/L Sodium (135-145) mmol/L Potassium (3.5-5.0) mmol/L Chloride (101-111) mmol/L Carbon Dioxide (21-32) mmol/L Anion Gap (6-13) BUN (6-20) mg/dL Creatinine (0.6-1.3) mg/dL Estimated GFR (MDRD) (>89) Glucose (74-104) mg/dL Calcium (8.5-10.3) mg/dL Phosphorus (2.5-4.6) mg/dL Magnesium (1.7-2.8) mg/dL B-Natriuretic Peptide (5-100) pg/mL TSH (0.34-5.60) uIU/mL Nasal Screen MRSA (PCR) NEGATIVE (NEGATIVE) Stl C. diff Tox B Gene NEGATIVE (NEGATIVE) Assessment/Plan - Problem List (1) Atrial fibrillation with rapid ventricular response Impression: The patient was admitted to the ICU on a Cardizem drip for rate control. This slowed her down with HRs in the 80's achieved overnight She was recently changed from amlodipine to oral metoprolol in hopes of maintaining sinus rhythm or at least rate control when in A-fib, but the dose was small, 25 mg daily The patient is on Xarelto at home as her anticoagulant for stroke prophylaxis. Her troponins ruled out ACS. Her TSH ruled out hyperthyroidism (all labs were reviewed) Plan: I will increase the oral Metoprolol Succinate to 50>> 75 mg twice daily and start weaning down the Cardizem drip to off, after the first p.o. Metoprolol dose this morning Remain in the ICU on telemetry, in case we have to resume Cardizem drip The patient could need both oral Metoprolol and oral Cardizem for rate control and she may possibly need a dose of Cardizem CD once daily Continue with a DOAC, but we do not have Xarelto on formulary, shewas put on Eliquis BID while here (2) Acute systolic heart failure Conclusion/Plan: When she was in the ER several days ago her chest x-ray showed mild CHF and BNP was slightly elevated in the 300s. Now at admission the chest x-ray does not reveal CHF but her BNP is again in the 300's. She describes orthopnea and PND Her respiratory PCR is all negative including negative COVID Echocardiogram was done and showed LVEF 40% and global hypokinesis. This is typical for a tachycardia-induced cardiomyopathy. Plan: Continue to work on rate control of the rapid A-fib, and I will increase her B- christiano preferentially over Cardizem use, if possible Cont iv Lasix, decrease from BID to daily, since her orthopnea is better No REENA/ARB or Spironolactone yet, incase we need high doses of HR meds that may on their own drop her BP excessively Follow BNP daily If she desaturates will give supplemental O2 (3) Chronic diarrhea Conclusion/Plan: He reports having this on and off ever since having gallbladder removed many ye ars ago. She was recently put on Colestid, changed from cholestyramine, to get the side effect of constipation from that med She currently has been having a bout of diarrhea, she said at admission It tested C.diff neg. Imodium prn was ordered Plan: Cont Imodium as needed Cont her home dose of Colestid (4) Parkinsonian tremor Conclusion/Plan: The patient has the typical resting tremor, that resolves with intentional movement She says she has never been diagnosed with Parkinson's however Plan: I will put point this finding out to her PCP, in the summary at the time of discharge, so that Parkinson's meds can be started and she can be monitored as to their effect
[2023-05-27] MEDS: METOPROLOL SUCCINATE 50 MG TABLET PO SCH (16:09)
[2023-05-27 16:10] LABS: CALCIUM, IONIZED 1.15 mmol/L (1.15-1.33); VBG PH 7.426 (7.31-7.41)
[2023-05-27] MEDS ORDERED: POTASSIUM CHLORIDE 20 MEQ TABLET PO ONE (17:09)
[2023-05-27] MEDS ORDERED: diltiaZEM INJ 5 MG/ML VIAL IVP PRN (17:50)
[2023-05-27] MEDS: ZOLPIDEM 5 MG TABLET PO PRN (20:09)
[2023-05-27] MEDS: GABAPENTIN 300 MG CAPSULE PO SCH (20:09)
[2023-05-27] MEDS: ATORVASTATIN 10 MG TABLET PO SCH (20:09)
[2023-05-28] MEDS: SODIUM CHLORIDE FLUSH 0.9% 10 ML SYRINGE IVP SCH ×3 (00:20→16:01)
[2023-05-28 05:10] LABS: CALCIUM, IONIZED 1.16 mmol/L (1.15-1.33); VBG PH 7.451 (7.31-7.41)
[2023-05-28 05:27] LABS: CALCIUM 9.3 mg/dL (8.5-10.3); CREATININE 0.7 mg/dL (0.6-1.3); MAGNESIUM 1.8 mg/dL (1.7-2.3); PHOSPHORUS 3.5 mg/dL (2.5-5.0); POTASSIUM 4.1 mmol/L (3.5-4.5)
[2023-05-28] MEDS: FUROSEMIDE 20 MG/2 ML VIAL IVP SCH (06:33)
[2023-05-28] MEDS: MAGNESIUM OXIDE 400 MG TABLET PO SCH ×2 (08:28→15:10)
[2023-05-28] MEDS: FERROUS SULFATE 325 MG TABLET PO SCH (08:28)
[2023-05-28] MEDS: METOPROLOL SUCCINATE 50 MG TABLET PO SCH ×2 (08:28→17:39)
[2023-05-28] MEDS: FAMOTIDINE 20 MG TABLET PO SCH ×2 (08:28→20:28)
[2023-05-28] MEDS: APIXABAN 5 MG TABLET PO SCH ×2 (08:28→20:28)
[2023-05-28] MEDS: COLESTIPOL HCL 1 GM PO SCH (08:54)
[2023-05-28] MEDS: LACTOBACILLUS ACIDOPHILUS PO SCH (08:55)
[2023-05-28] MEDS: GLUCOSAMINE SULFATE 1000 MG PO SCH (08:55)
[2023-05-28] MEDS ORDERED: PSYLLIUM HUSK 0.52 GM PO SCH (09:00)
[2023-05-28] MEDS ORDERED: [UNRECOGNIZED DRUG - OTHER] PO SCH (09:00)
[2023-05-28] MEDS ORDERED: diltiaZEM CD 240 MG CAPSULE PO SCH (12:00)
--- NOTE | 2023-05-28 15:41 | PROVIDER PROGRESS NOTE ---
Assessment/Plan - Problem List (1) Atrial fibrillation with rapid ventricular response Assessment/Plan: The patient was admitted to the ICU on a Cardizem drip for rate control. This slowed her down with HRs in the 80's. That was weaned down and I am treating her with oral Cardizem CD, the dose has been increased from 120 mg to 180 mg, and will be up to 240 mg today at midday She was recently changed from amlodipine to oral metoprolol in hopes of maintaining sinus rhythm or at least rate control when in A-fib, but the dose was small, 25 mg daily. Here I have increased her to Toprol 100 twice daily, to be given at breakfast time and dinner time. The patient is on Xarelto at home as her anticoagulant for stroke prophylaxis. Here we have her on Eliquis BID Her troponins ruled out ACS. Her TSH ruled out hyperthyroidism (all labs were reviewed) Plan: She will be transferred out of the ICU today to [facility]. Assess HR control w/ activity. Remain on telemetry, target HR is <100 at rest; she is still reaching 120's occasionally, even at rest Cont Metoprolol Succinate at max dose, 100 mg twice daily I am escalating doses of Cardizem CD once daily>> 240 mg today at midday today Continue with a DOAC, but we do not have Xarelto on formulary, she is on Eliquis BID while here (2) Acute systolic heart failure Conclusion/Plan: When she was in the ER several days ago her chest x-ray showed mild CHF and BNP was slightly elevated in the 300s. Now at admission the chest x-ray does not reveal CHF but her BNP is again in the 300's. She described orthopnea and PND. Today she reported that the orthopnea and "heaviness" has resolved. Echocardiogram was done and showed LVEF 40% and global hypokinesis, consistent with a tachycardia-induced cardiomyopathy. Plan: Continue to work on rate control of the rapid A-fib, increasing her B-christiano preferentially over Cardizem, if possible I will stop the IV BID Lasix after this morning's one IV dose, since her lungs are clear, sx improved and BNP is down (all labs were reviewed) No REENA/ARB or Spironolactone yet, incase we need high doses of HR meds that may on their own drop her BP excessively Follow BNP daily If she desaturates, will give supplemental O2 (3) Chronic diarrhea Conclusion/Plan: He reports having this on and off ever since having gallbladder removed many years ago. She was recently put on Colestid, changed from cholestyramine, to get the side effect of constipation from that med She currently has been having a bout of diarrhea, she said at admission She tested C.diff neg. Imodium prn was ordered Plan: Cont Imodium as needed Cont her home dose of Colestid Today I will also resumed her other medications, which can also add to firming up her stool (oral Iron, etc.) (4) Parkinsonian tremor Conclusion/Plan: The patient has the typical resting tremor, that resolves with intentional movement She says she has never been diagnosed with Parkinson's however Plan: I will put point this finding out to her PCP, in the summary at the time of discharge, so that Parkinson's meds can be started and she can be monitored as to their effect - Current Meds Current Meds: Current Medications Generic Name Dose Route Start Last Admin Trade Name Francisco PRN Reason Stop Dose Admin Apixaban 5 mg 05/26/23 21:00 05/28/23 08:28 Apixaban 5 Mg Tablet PO 5 mg BID MATTY Administration Atorvastatin Calcium 10 mg 05/26/23 21:00 05/27/23 20:09 Atorvastatin 10 Mg Tablet PO 10 mg QPM MATTY Administration Famotidine 20 mg 05/26/23 21:00 05/28/23 08:28 Famotidine 20 Mg Tablet PO 20 mg BID MATTY Administration Ferrous Sulfate 325 mg 05/28/23 09:00 05/28/23 08:28 Ferrous Sulfate 325 Mg Tablet PO 325 mg DAILY MATTY Administration Gabapentin 300 mg 05/26/23 21:00 05/27/23 20:09 Gabapentin 300 Mg Capsule PO 300 mg HS MATTY Administration Loperamide HCl 2 mg 05/26/23 17:32 05/27/23 20:09 Loperamide 2 Mg Capsule PO 2 mg QID PRN Administration Diarrhea Metoprolol Succinate 100 mg 05/27/23 17:00 05/28/23 08:28 Metoprolol Succinate 50 Mg Tablet PO 100 mg 0800,1700 MATTY Administration Non-Formulary Medication 1 gm 05/27/23 09:00 05/28/23 08:54 Colestipol Hcl [Colestid] PO Not Given DAILY MATTY Non-Formulary Medication 1 tab 05/28/23 09:00 05/28/23 08:55 Lactobacillus Acidophilus [Acidophilus] PO Not Given DAILY MATTY Non-Formulary Medication 2,000 mg 05/28/23 09:00 05/28/23 08:55 Glucosamine Sulfate [Glucosamine Sulfate] PO Not Given DAILY MATTY Sodium Chloride 10 ml 05/26/23 17:00 05/28/23 08:36 Sodium Chloride Flush 0.9% 10 Ml Syringe IVP 10 ml 0100,0900,1700 MATTY Administration Sodium Chloride 10 ml 05/26/23 14:04 05/27/23 06:50 Sodium Chloride Flush 0.9% 10 Ml Syringe IVP 10 ml PRN PRN Administration NEEDED PER PROVIDER ORDERS Zolpidem Tartrate 2.5 mg 05/26/23 17:33 05/27/23 20:09 Zolpidem 5 Mg Tablet PO 2.5 mg QPM PRN Administration Insomnia - Lab Result Fish Bone Diagrams: 05/27/23 04:33 05/28/23 04:45 - Additional Planning My Orders: My Active Orders 05/27/23 17:00 Metoprolol Succinate [Toprol Xl] 100 mg PO 0800,1700 05/27/23 17:50 diltiaZEM INJ [Cardizem Inj] 20 mg IVP ONCE PRN 05/28/23 07:49 Out of bed 4+ hours [RC] QID 05/28/23 09:00 Ferrous Sulfate [Feosol] 325 mg PO DAILY Glucosamine Sulfate [Glucosamine Sulfate] 2,000 mg PO DAILY Lactobacillus Acidophilus [Acidophilus] 1 tab PO DAILY 05/28/23 09:24 Telemetry- [RC] Q4HR 05/28/23 16:00 diltiaZEM INJ [Cardizem Inj] 10 mg IVP TID 05/29/23 05:00 CALCIUM, IONIZED ([facility]) [BG] DAILYLAB MAGNESIUM [CHEM] DAILYLAB PHOSPHORUS [CHEM] DAILYLAB 05/29/23 09:00 Psyllium [Metamucil] 1 packet PO DAILY Saccharomyces Boulardii [Florastor] 250 mg PO DAILY Subjective - Subjective Patient Reports: Feeling Better (Today she reported that the orthopnea and "heaviness" has resolved.) Objective Vital Signs: Vital Signs - 24 hr 05/27/23 05/27/23 05/27/23 15:35 15:45 15:50 Temperature Heart Rate [ 104 H 117 H 113 H Monitoring electrodes] Respiratory Rate Blood Pressure 108/68 134/77 H 120/64 [Right Brachial artery] O2 Saturation If not protocol : Oxygen Flow, liters/minute 05/27/23 05/27/23 05/27/23 16:00 17:00 18:00 Temperature Heart Rate [ 100 113 H 96 Monitoring electrodes] Respiratory 20 16 16 Rate Blood Pressure 120/71 133/90 H 133/90 H [Right Brachial artery] O2 Saturation 95 If not protocol : Oxygen Flow, liters/minute 05/27/23 05/27/23 05/27/23 19:07 20:00 21:00 Temperature 36.7 C Heart Rate [ 88 106 H 96 Monitoring electrodes] Respiratory 21 18 21 Rate Blood Pressure 135/87 H 131/98 H 106/57 L [Right Brachial artery] O2 Saturation 96 96 94 If not protocol : Oxygen Flow, liters/minute 05/27/23 05/27/23 05/27/23 22:00 23:00 23:01 Temperature Heart Rate [ 107 H 103 H Monitoring electrodes] Respiratory 23 17 Rate Blood Pressure 132/94 H 115/85 H [Right Brachial artery] O2 Saturation 95 89 L 93 If not protocol 1 : Oxygen Flow, liters/minute 05/28/23 05/28/23 05/28/23 00:00 00:13 01:00 Temperature Heart Rate [ 95 96 Monitoring electrodes] Respiratory 19 17 Rate Blood Pressure 109/73 102/53 L [Right Brachial artery] O2 Saturation 93 94 If not protocol 1 1 1 : Oxygen Flow, liters/minute 05/28/23 05/28/23 05/28/23 02:00 03:00 04:00 Temperature 36.6 C Heart Rate [ 102 H 117 H 104 H Monitoring electrodes] Respiratory 15 18 16 Rate Blood Pressure 128/73 109/71 111/76 [Right Brachial artery] O2 Saturation 95 95 93 If not protocol 1 1 1 : Oxygen Flow, liters/minute 05/28/23 05/28/23 05/28/23 05:00 06:00 07:00 Temperature 36.8 C Heart Rate [ 101 H 100 105 H Monitoring electrodes] Respiratory 18 15 16 Rate Blood Pressure 120/85 H 117/81 H 134/88 H [Right Brachial artery] O2 Saturation 94 98 96 If not protocol 1 1 1 : Oxygen Flow, liters/minute 05/28/23 05/28/23 05/28/23 08:15 08:25 09:00 Temperature 36.5 C Heart Rate [ 119 H 108 H Monitoring electrodes] Respiratory 19 19 Rate Blood Pressure 132/102 H 124/93 H [Right Brachial artery] O2 Saturation 98 95 If not protocol 1 : Oxygen Flow, liters/minute 05/28/23 05/28/23 05/28/23 10:00 11:00 11:18 Temperature Heart Rate [ 122 H 152 H 124 H Monitoring electrodes] Respiratory 22 Rate Blood Pressure 138/109 H [Right Brachial artery] O2 Saturation 96 If not protocol : Oxygen Flow, liters/minute 05/28/23 05/28/23 05/28/23 11:51 12:38 13:04 Temperature 36.4 C L Heart Rate [ 124 H 111 H 114 H Monitoring electrodes] Respiratory 18 Rate Blood Pressure 126/113 H 111/81 H [Right Brachial artery] O2 Saturation 97 If not protocol : Oxygen Flow, liters/minute 05/28/23 05/28/23 05/28/23 14:05 14:32 15:08 Temperature Heart Rate [ 120 H 112 H 133 H Monitoring electrodes] Respiratory Rate Blood Pressure [Right Brachial artery] O2 Saturation If not protocol : Oxygen Flow, liters/minute Oxygen O2 Source Room air I&O (Last 24 Hrs): Intake and Output Totals x24h 05/26/23 05/27/23 05/28/23 23:59 23:59 23:59 Intake Total 1573.251 675.500 820 Output Total 702 1775 850 Balance 871.251 -1099.500 -30 General: Alert, Oriented x3 HEENT: Mucous membr. moist/pink Neck: Supple, No JVD (invertical position) Neuro: Alert, Non Focal, Other ([place]) Cardiovascular: Other (Tachycardic) Abdomen: Soft Extremities: No clubbing, No edema, No tenderness/swelling - Results Results: Laboratory Results WBC 6.7 x10^3/uL (4.8-10.8) 05/27/23 04:33 RBC 4.93 10^6/uL (4.20-5.40) 05/27/23 04:33 Hgb 15.3 g/dL (12.0-16.0) 05/27/23 04:33 Hct 49.1 % (37.0-47.0) H 05/27/23 04:33 MCV 99.6 fL (81.0-99.0) H 05/27/23 04:33 MCH 31.0 pg (27.0-31.0) 05/27/23 04:33 MCHC 31.2 g/dL (32.0-36.0) L 05/27/23 04:33 RDW 14.6 % (12.0-15.0) 05/27/23 04:33 Plt Count 199 10^3/uL (130-450) 05/27/23 04:33 MPV 11.4 fL (7.9-10.8) H 05/27/23 04:33 Neut # (Auto) 4.5 10^3/uL (1.5-6.6) 05/27/23 04:33 Lymph # (Auto) 1.5 10^3/uL (1.5-3.5) 05/27/23 04:33 [facility] # (Auto) 0.6 10^3/uL (0.0-1.0) 05/27/23 04:33 Eos # (Auto) 0.1 10^3/uL (0.0-0.7) 05/27/23 04:33 Baso # (Auto) 0.1 10^3/uL (0.0-0.1) 05/27/23 04:33 Absolute Nucleated RBC 0.00 x10^3/uL 05/27/23 04:33 Nucleated RBC % 0.0 /100WBC 05/27/23 04:33 VBG pH 7.451 (7.31-7.41) H 05/28/23 04:45 Ionized Calcium 1.16 mmol/L (1.15-1.33) 05/28/23 04:45 Sodium 140 mmol/L (135-145) 05/28/23 04:45 Potassium 4.1 mmol/L (3.5-4.5) 05/28/23 04:45 Chloride 105 mmol/L (101-111) 05/28/23 04:45 Carbon Dioxide 28 mmol/L (21-32) 05/28/23 04:45 Anion Gap 7.0 (6-13) 05/28/23 04:45 BUN 9 mg/dL (6-20) 05/28/23 04:45 Creatinine 0.7 mg/dL (0.6-1.3) 05/28/23 04:45 Estimated GFR (MDRD) 79 (>89) L 05/28/23 04:45 Glucose 96 mg/dL (74-104) 05/28/23 04:45 Calcium 9.3 mg/dL (8.5-10.3) 05/28/23 04:45 Phosphorus 3.5 mg/dL (2.5-5.0) 05/28/23 04:45 Magnesium 1.8 mg/dL (1.7-2.3) 05/28/23 04:45 Total Bilirubin 0.7 mg/dL (0.2-1.0) 05/26/23 10:01 AST 12 IU/L (10-42) 05/26/23 10:01 ALT 18 IU/L (10-60) 05/26/23 10:01 Alkaline Phosphatase 58 IU/L (42-121) 05/26/23 10:01 Troponin I High Sens 16.5 ng/L (2.3-14.8) H* 05/26/23 14:32 B-Natriuretic Peptide 245 pg/mL (5-100) H 05/28/23 04:45 Total Protein 6.2 g/dL (6.4-8.9) L 05/26/23 10:01 Albumin 4.0 g/dL (3.2-5.5) 05/26/23 10:01 Globulin 2.2 g/dL (2.1-4.2) 05/26/23 10:01 Albumin/Globulin Ratio 1.8 (1.0-2.2) 05/26/23 10:01 Lipase 31 U/L (11-82) 05/26/23 10:01 TSH 2.16 uIU/mL (0.34-5.60) 05/27/23 04:33 Nasal Adenovirus (PCR) NOT DETECTED 05/26/23 09:16 Nasal B. parapertussis DNA (PCR) NOT DETECTED 05/26/23 09:16 Nasal Coronavir 229E PCR NOT DETECTED 05/26/23 09:16 Nasal Coronavir HKU1 PCR NOT DETECTED 05/26/23 09:16 Nasal Coronavir NL63 PCR NOT DETECTED 05/26/23 09:16 Nasal Coronavir OC43 PCR NOT DETECTED 05/26/23 09:16 Nasal Enterovir/Rhinovir PCR NOT DETECTED 05/26/23 09:16 Nasal Influenza B PCR NOT DETECTED 05/26/23 09:16 Nasal Influenza A PCR NOT DETECTED 05/26/23 09:16 Nasal Parainfluen 1 PCR NOT DETECTED 05/26/23 09:16 Nasal Parainfluen 2 PCR NOT DETECTED 05/26/23 09:16 Nasal Parainfluen 3 PCR NOT DETECTED 05/26/23 09:16 Nasal Parainfluen 4 PCR NOT DETECTED 05/26/23 09:16 Nasal RSV (PCR) NOT DETECTED 05/26/23 09:16 Nasal Screen MRSA (PCR) NEGATIVE (NEGATIVE) 05/26/23 14:29 Nasal B.pertussis DNA PCR NOT DETECTED 05/26/23 09:16 Nasal C.pneumoniae (PCR) NOT DETECTED 05/26/23 09:16 Herman Human Metapneumo PCR NOT DETECTED 05/26/23 09:16 Nasal M.pneumoniae (PCR) NOT DETECTED 05/26/23 09:16 Nasal SARS-CoV-2 (PCR) NOT DETECTED 05/26/23 09:16 Stl C. diff Tox B Gene NEGATIVE (NEGATIVE) 05/26/23 21:25 - Procedures Procedures: Procedures TU REMOV URETER OBSTRUCT (10/15/13) URETERAL CATHETERIZATION (10/15/13)
[2023-05-28] MEDS: diltiaZEM INJ 5 MG/ML VIAL IVP SCH ×2 (15:59→21:31)
[2023-05-28] MEDS: ATORVASTATIN 10 MG TABLET PO SCH (20:28)
[2023-05-28] MEDS: GABAPENTIN 300 MG CAPSULE PO SCH (20:28)
[2023-05-29] MEDS: SODIUM CHLORIDE FLUSH 0.9% 10 ML SYRINGE IVP SCH ×2 (03:28→07:49)
[2023-05-29] MEDS: diltiaZEM INJ 5 MG/ML VIAL IVP SCH (04:11)
[2023-05-29 05:39] LABS: CALCIUM, IONIZED 1.1 mmol/L (1.15-1.33); VBG PH 7.472 (7.31-7.41)
[2023-05-29 05:53] LABS: MAGNESIUM 1.9 mg/dL (1.7-2.3); PHOSPHORUS 3.4 mg/dL (2.5-5.0)
[2023-05-29] MEDS ORDERED: PSYLLIUM PACKET PO SCH (09:00)
[2023-05-29] MEDS: SACCHAROMYCES BOULARDII 250 MG CAPSULE PO SCH ×2 (09:36→09:37)
[2023-05-29] MEDS: METOPROLOL SUCCINATE 50 MG TABLET PO SCH (09:36)
[2023-05-29] MEDS: FERROUS SULFATE 325 MG TABLET PO SCH (09:37)
[2023-05-29] MEDS: APIXABAN 5 MG TABLET PO SCH (09:37)
[2023-05-29] MEDS: FAMOTIDINE 20 MG TABLET PO SCH (09:37)
[2023-05-29] MEDS ORDERED: DIGOXIN 500 MCG/2 ML AMP IVP STA (09:56)
--- NOTE | 2023-05-29 11:16 | Discharge Plan ---
Discharge Plan Problem Reviewed?: Yes Disposition: Home, Self Care Condition: Fair Prescriptions: diltiaZEM CD [Cardizem Cd] 180 mg PO 1200,2200 #60 cap Loperamide [Imodium] 2 mg PO QID PRN #60 cap PRN Reason: Diarrhea Digoxin [Lanoxin] 125 mcg PO MOWEFR #15 tablet Metoprolol Succinate [Toprol Xl] 100 mg PO 0800,1700 #60 tab Diet: Low Sodium Activity Restrictions: Activity as Tolerated Shower Restrictions: No Driving Restrictions: Yes Instruction Topics: Metoprolol extended-release tablets, Diltiazem extended- release capsules or tablets, Digoxin Drug Level, Digoxin Health Concerns: You were hospitalized to manage your very rapid heart rate which was difficult to bring down and control with medications. The doses of the medicines needed to be raised daily, and slowly, because of your low blood pressure. Those medicines are now maximized and you are being discharged home with new prescriptions for them. All prescriptions were electronically sent to the [facility] pharmacy in [place]. Please follow the new list of medications and take them exactly as ordered. Please do NOT take the dose of Metoprolol (25 mg) that was prescribed at the last ER visit. Remember to also NOT to take the Amlodipine anymore, which was stopped as of the last ER visit. Reminder: Your Xarelto (Rivaroxaban) should be taken with your biggest meal of the day, which for most people is dinner. You need to see Dr. Velasquez, your Primary Care doctor, in approx. the next 1 week, for a hospital follow-up visit, and a blood test needs to be done, which I will let her know. You need to be referred to a Certified Coatings Inspector. There are 2 Cardiology doctors that come right here to the hospital building every . This would be appropriate for you and we will help Dr. Velasquez get you in to see one of those Certified Coatings Inspector [facility]. Plan of Treatment: As above. Care Goals: Improvement in symptoms and stabilization are the goals. Assessment: The patient understands and is agreeable with the plan. Additional Instructions or Follow Up instructions: If you have new or worsening symptoms, call your PCP for advice, or come to the ER. Follow-Up Care: [facility] (This is where you would be seen by one of the Cardiologists.) No Smoking: If you smoke, Please STOP! Call for help.
[2023-05-29] MEDS: COLESTIPOL HCL 1 GM PO SCH (11:34)
[2023-05-29] MEDS: GLUCOSAMINE SULFATE 1000 MG PO SCH (11:35)
[2023-05-29] MEDS: LACTOBACILLUS ACIDOPHILUS PO SCH (11:36)
[2023-05-29] MEDS ORDERED: diltiaZEM CD 180 MG CAPSULE PO SCH (12:00)
[2023-05-29 12:59] VITALS: BP 113/55; O2SAT 93
--- NOTE | 2023-05-29 14:20 | DISCHARGE SUMMARY ---
Discharge Summary Admit Date: 05/26/23 Discharge Date: 05/29/23 Discharging Provider: Dr Yasmin Macedo Primary Care Provider: Dr Shameka Moreno Code Status: Do Not Attempt Resuscitation Condition at Discharge: Fair Discharge Disposition: 01 Home, Self Care - HPI History of Present Illness: This is an 87-year-old female with a history of CVA, chronic intermittent diarrhea, Atrial fib which used to be paroxysmal but now over the past 2 weeks seems to be permanent Afib. She came to the ER 4 days ago with complaints of shortness of breath and weakness and was found to be in A-fib at a rate of 160. She underwent elective synchronized cardioversion and was discharged in NSR. She had been on amlodipine and this was changed to metoprolol when leaving the ER. Her Xarelto was continued. (ER doctor first planned on using Cardizem but learned that it would interact with Xarelto). The patient states that after getting home she nearly immediately felt the same shortness of breath and weakness and has not felt better over the last 4 days. She came back to the ER because of this today. She was found to be in A-fib at a rate of 130. She received Cardizem IV 25 mg x 2 push and Cardizem CD 240 mg p.o. x1. Her blood pressure has been stable with this. The heart rate minimally improved to 120 in Afib and she was started on a Cardizem drip. The ED provider then spoke to me about this patient. She will be admitted to the ICU on a diltiazem drip to manage A-fib with RVR. - HOSPITAL COURSE Hospital Course: (1) Atrial fibrillation with rapid ventricular response The patient was admitted to the ICU on a Cardizem drip for rate control. This slowed her down with HRs in the 80's. That was weaned down and I continued to work on rate control of her rapid A-fib, increasing her B-christiano preferentially over Cardizem. She will no longer be on Amlodipine. The patient was on Xarelto at home as her anticoagulant for stroke prophylaxis. Here we had her on Eliquis BID as a substitute (since Xarelto is not on hospital formulary). Her troponins ruled out ACS. Her TSH ruled out hyperthyroidism. She was discharged on Metoprolol Succinate at max dose, 100 mg twice daily, and Cardizem CD 240 mg daily at midday, and advised to resume Xarelto. (2) Acute systolic heart failure When she was in the ER several days ago her chest x-ray showed mild CHF and BNP was slightly elevated in the 300s. Now at admission the chest x-ray did not reveal CHF but her BNP was again in the 300's. She described orthopnea and PND. She was put on iv Lasix. Echocardiogram was done and showed LVEF 40% and global hypokinesis, consistent with a tachycardia-induced cardiomyopathy. I continued to work on rate control of her rapid A-fib, increasing her B-christiano preferent ially over Cardizem. No REENA/ARB or Spironolactone were begun, in case high doses of B-christiano dropped her BP excessively. She was discharged on different CHF meds. She needs to have a Liquor Tester, and needs an eval for CAD if not recently done. (3) Chronic diarrhea She reported having this on and off ever since her cholecystectomy many years ago. She was recently put on Colestid, changed from cholestyramine, in order to get the side effect of constipation from that med. She tested C.diff neg here. Imodium prn was ordered and I continued her home dose of Colestid and resumed her oral Iron, which can also add to firming up her stool. (4) Parkinsonian tremor The patient has the typical resting tremor that resolves with intentional movement. She says she has never been diagnosed officially with Parkinson's. I am putting this finding in the summary, so that either a referral to neurology is made, or Parkinson's meds can be started and she can be monitored as to their effect. (5) [place] As per Hx. - ALLERGIES Allergies/Adverse Reactions: Allergies Allergy/AdvReac Type Severity Reaction Status Date / Time latex Allergy Intermediate swelling Verified 04/18/23 10:31 ascorbic acid Allergy Unknown Unknown Verified 04/18/23 10:31 Penicillins AdvReac Intermediate Rash Verified 04/18/23 10:31 Sulfa (Sulfonamide AdvReac Intermediate Itching Verified 04/18/23 10:31 Antibiotics) - MEDICATIONS Home Medications: Ambulatory Orders Medication Instructions Recorded Confirmed Omeprazole [PriLOSEC] 40 mg PO QDAC 09/04/13 05/26/23 Rivaroxaban [Xarelto] 20 mg PO DAILY 05/27/21 05/26/23 Atorvastatin [Lipitor] 10 mg PO DAILY 05/26/23 Colestipol HCl [Colestid] 2 gm PO DAILY 05/26/23 Ascorbic Acid [Vitamin C] 1,000 mg PO DAILY 05/27/23 05/27/23 Calcium Carbonate/Vitamin D3 1 cap PO DAILY 05/27/23 05/27/23 [Calcium 600 mg-D3 10 Mcg Sfgl] Cholecalciferol [Vitamin D3] 50 mcg PO DAILY 05/27/23 05/27/23 Cyanocobalamin (Vitamin B-12) 1,000 mcg PO DAILY 05/27/23 05/27/23 [Vitamin B-12] Ferrous Sulfate [Feosol] 325 mg PO DAILY 05/27/23 05/27/23 Gabapentin [Neurontin] 300 mg PO QPM 05/27/23 05/27/23 Glucosamine Sulfate 2,000 mg PO DAILY 05/27/23 05/27/23 Lactobacillus Acidophilus 1 tab PO DAILY 05/27/23 05/27/23 [Acidophilus] Probiotic Multi-Enzyme 1 tab PO DAILY 05/27/23 05/27/23 Psyllium Husk [Metamucil] 6 cap PO DAILY 05/27/23 05/27/23 Digoxin [Lanoxin] 125 mcg PO MOWEFR #15 tablet 05/29/23 Loperamide [Imodium] 2 mg PO QID PRN #60 cap 05/29/23 Metoprolol Succinate [Toprol Xl] 100 mg PO 0800,1700 #60 tab 05/29/23 diltiaZEM CD [Cardizem Cd] 180 mg PO 1200,2200 #60 cap 05/29/23 - PHYSICAL EXAM AT DISCHARGE General Appearance: positive: No acute distress, Alert Eyes Bilateral: positive: Normal inspection, EOMI ENT: positive: ENT inspection nml, No signs of dehydration Neck: positive: Nml inspection, No JVD Respiratory: positive: No respiratory distress, Breath sounds nml Cardiovascular: positive: Irregularly irregular Abdomen: positive: Non-tender, No distention Skin: positive: Warm, Dry Extremities: positive: Non-tender, Other (Trace pedal edema) Neurologic/Psychiatric: positive: Oriented x3, Motor nml - LABS Result Diagrams: 05/27/23 04:33 05/28/23 04:45 - DIAGNOSTIC IMAGING Diagnostic Imaging Results: Final report reviewed - FOLLOW UP Follow Up: See PCP in 1-2 weeks for a hospital F/U visit. - TIME SPENT Time Spent in Discharge (Minutes): 40
== END 2023-05-29 15:00 | disposition home or self-care (01) | DRG 308 ==
LOC: ED 08:47 → ICU 14:35 → MS2 05-28 16:28
PROVIDERS: ADMIT Internal Medicine; ATTEND Internal Medicine
DX: I48.91 Unspecified atrial fibrillation (principal); I10 Essential (primary) hypertension; J90 Pleural effusion, not elsewhere classified; Z79.01 Long term (current) use of anticoagulants; Z20.822 Contact with and (suspected) exposure to COVID-19; I50.21 Acute systolic (congestive) heart failure; I42.9 Cardiomyopathy, unspecified; K52.9 Noninfective gastroenteritis and colitis, unspecified; G20 Parkinson's disease; I11.0 Hypertensive heart disease with heart failure; E78.00 Pure hypercholesterolemia, unspecified; G89.29 Other chronic pain; M54.9 Dorsalgia, unspecified; M19.90 Unspecified osteoarthritis, unspecified site; Z79.899 Other long term (current) drug therapy; Z86.73 Personal history of transient ischemic attack (TIA), and cerebral infarction without residual deficits; Z88.0 Allergy status to penicillin; Z88.2 Allergy status to sulfonamides; Z88.8 Allergy status to other drugs, medicaments and biological substances; Z90.49 Acquired absence of other specified parts of digestive tract; Z91.040 Latex allergy status
CPT/HCPCS: 36415; 71045; 80048; 80053; 82330; 83690; 83735; 83880; 84100; 84132; 84443; 84484; 85025; 87150; 87493; 87633; 93005; 93306; 96374; 96376; 99291; A9270

== ENCOUNTER 2023-06-30 08:00 | Outpatient (CLI) | payer MEDICARE ==
[2023-06-30 20:35] LABS: BILIRUBIN,URINE NEGATIVE (NEGATIVE); CLARITY,URINE CLOUDY (CLEAR); GLUCOSE, URINE (UA) NEGATIVE (NEGATIVE); KETONES,URINE (UA) NEGATIVE (NEGATIVE); LEUKOCYTE ESTERASE, URINE SMALL (NEGATIVE); NITRITE,URINE NEGATIVE (NEGATIVE); OCCULT BLOOD,URINE MODERATE (NEGATIVE); PROTEIN,URINE 30 mg/dL (NEGATIVE); UROBILINOGEN,URINE 0.2 (NORMAL) E.U./dL (NORMAL)
[2023-06-30 20:44] LABS: AMORPHOUS SEDIMENT,UR Marked /LPF; BACTERIA,URINE Moderate /HPF (None Seen); SQUAMOUS EPITHELIAL CELL,UR FEW Squamous (<= Few)
== END 2023-06-30 23:59 | disposition home or self-care (01) ==
LOC: LAB.R 08:00
PROVIDERS: ATTEND Internal Medicine
DX: R30.0 Dysuria (principal); R35.0 Frequency of micturition
CPT/HCPCS: 81001; 81003; 87086; 87181

== ENCOUNTER 2023-09-07 08:35 | Emergency (ER) | payer MEDICARE ==
[2023-09-07 09:07] LABS: BASOPHILS # (AUTO) 0.1 10^3/uL (0.0-0.1); BASOPHILS % (AUTO) 0.5 %; EOSINOPHILS # (AUTO) 0.1 10^3/uL (0.0-0.7); EOSINOPHILS % (AUTO) 0.3 %; HCT - HEMATOCRIT 55.1 % (37.0-47.0); HGB - HEMOGLOBIN 17.8 g/dL (12.0-16.0); LYMPHOCYTES # (AUTO) 0.8 10^3/uL (1.5-3.5); LYMPHOCYTES % (AUTO) 5.1 %; MEAN CORPUSCULAR HGB CONC 32.3 g/dL (32.0-36.0); MEAN CORPUSCULAR VOLUME 95.8 fL (81.0-99.0); MEAN PLATELET VOLUME 10.6 fL (7.9-10.8); MONOCYTES # (AUTO) 0.6 10^3/uL (0.0-1.0); MONOCYTES % (AUTO) 3.7 %; NEUTROPHILS # (AUTO) 13.8 10^3/uL (1.5-6.6); NEUTROPHILS % (AUTO) 89.9 %; PLT - PLATELET COUNT 231 10^3/uL (130-450); RED BLOOD COUNT 5.75 10^6/uL (4.20-5.40); RED CELL DISTRIBUTION WIDTH 15.3 % (12.0-15.0); WHITE BLOOD COUNT 15.4 x10^3/uL (4.8-10.8)
[2023-09-07] MEDS ORDERED: ONDANSETRON 4 MG/2 ML VIAL IVP STA (09:22)
[2023-09-07 09:23] LABS: ALBUMIN 4.3 g/dL (3.2-5.5); ALBUMIN/GLOBULIN RATIO 1.6 (1.0-2.2); BILIRUBIN,TOTAL 0.9 mg/dL (0.2-1.0); CALCIUM 10.5 mg/dL (8.5-10.3); POTASSIUM 4.4 mmol/L (3.5-4.5)
[2023-09-07 09:28] LABS: TROPONIN I HIGH SENSITIVITY 6.2 ng/L (2.3-14.8)
--- NOTE | 2023-09-07 09:33 | XRAY Report ---
PROCEDURE: Chest 1 View X-Ray INDICATIONS: Chest pain TECHNIQUE: One view of the chest was acquired. COMPARISON: Chest radiograph 05/26/2023. FINDINGS: Surgical changes and devices: None. Lungs and pleura: No pleural effusions or pneumothorax. Lung volumes have slightly decreased with in creased prominence of the bronchovascular. Left basilar mild patchy opacity. Mediastinum: Mediastinal contours appear normal. Heart size is normal. Aortic arch is calcified ind icating atherosclerosis. Bones and chest wall: No suspicious bony lesions. Overlying soft tissues appear unremarkable. IMPRESSION: Compared to prior radiograph 05/26/2023, lung volumes are slightly decreased with increased bronchovasc ular prominence which may represent bronchovascular crowding versus mild pulmonary edema. Mild patchy left basilar opacity is favored to represent atelectasis versus aspiration. Reviewed by: Radha Gunn MD on 09/07/2023 9:32 AM PST Approved by: Radha Gunn MD on 09/07/2023 9:32 AM PST Station ID: [id number]
--- NOTE | 2023-09-07 09:46 | ED Physician Documentation ---
PD HPI CHEST PAIN - Stated complaint Stated Complaint: SOA,CHEST PX - Chief complaint Chief Complaint: Cardiac - History obtained from History obtained from: Patient - Additional information Additional information: Patient is an 87-year-old female with a history of atrial fibrillation on Xarelto presenting for evaluation of chest pain that started last night around 8:00. She has a history of lactose intolerance and wanted to try and give herself a test to see if she could have pizza and so ate pizza last night along with a soda. She states that prior to the onset of her symptoms she was belchin g a lot and started having a pressure sensation in her chest that radiated to her back. She reports having associated nausea and vomiting. This morning she woke up and she still had some discomfort in her stomach as well as the chest area and thus has presented to the ER for evaluation. She reports some nausea as well as 3 loose stools this morning. Denies any blood in her stools. No fever, cough, no difficulty with breathing. No leg swelling or pain. She has been compliant with her blood thinner. Review of Systems Constitutional: denies: Fever Cardiac: reports: Chest pain / pressure Respiratory: denies: Dyspnea GI: reports: Nausea : denies: Dysuria Musculoskeletal: denies: Extremity swelling PD PAST MEDICAL HISTORY - Past Medical History Cardiovascular: Hypertension, High cholesterol, Atrial fibrillation Respiratory: None Neuro: TIA Endocrine/Autoimmune: None GI: GERD, Chronic diarrhea, Cholelithiasis : Kidney stones HEENT: Chronic vision loss, Chronic sinusitis, Chronic hearing loss Psych: None Musculoskeletal: Osteoarthritis, Chronic back pain Derm: None - Past Surgical History Past Surgical History: Yes General: Colonoscopy /PROMOTIONS INTERN: Hysterectomy HEENT: Tonsil/Adenoidectomy - Present Medications Home Medications: Ambulatory Orders Medication Instructions Recorded Confirmed Omeprazole [PriLOSEC] 40 mg PO QDAC 09/04/13 05/26/23 Rivaroxaban [Xarelto] 20 mg PO DAILY 05/27/21 05/26/23 Atorvastatin [Lipitor] 10 mg PO DAILY 05/26/23 Colestipol HCl [Colestid] 2 gm PO DAILY 05/26/23 Ascorbic Acid [Vitamin C] 1,000 mg PO DAILY 05/27/23 05/27/23 Calcium Carbonate/Vitamin D3 1 cap PO DAILY 05/27/23 05/27/23 [Calcium 600 mg-D3 10 Mcg Sfgl] Cholecalciferol [Vitamin D3] 50 mcg PO DAILY 05/27/23 05/27/23 Cyanocobalamin (Vitamin B-12) 1,000 mcg PO DAILY 05/27/23 05/27/23 [Vitamin B-12] Ferrous Sulfate [Feosol] 325 mg PO DAILY 05/27/23 05/27/23 Gabapentin [Neurontin] 300 mg PO QPM 05/27/23 05/27/23 Glucosamine Sulfate 2,000 mg PO DAILY 05/27/23 05/27/23 Lactobacillus Acidophilus 1 tab PO DAILY 05/27/23 05/27/23 [Acidophilus] Probiotic Multi-Enzyme 1 tab PO DAILY 05/27/23 05/27/23 Psyllium Husk [Metamucil] 6 cap PO DAILY 05/27/23 05/27/23 Digoxin [Lanoxin] 125 mcg PO MOWEFR #15 tablet 05/29/23 Loperamide [Imodium] 2 mg PO QID PRN #60 cap 05/29/23 Metoprolol Succinate [Toprol Xl] 100 mg PO 0800,1700 #60 tab 05/29/23 diltiaZEM CD [Cardizem Cd] 180 mg PO 1200,2200 #60 cap 05/29/23 - Allergies Allergies/Adverse Reactions: Allergies Allergy/AdvReac Type Severity Reaction Status Date / Time latex Allergy Intermediate swelling Verified 04/18/23 10:31 ascorbic acid Allergy Unknown Unknown Verified 04/18/23 10:31 Penicillins AdvReac Intermediate Rash Verified 04/18/23 10:31 Sulfa (Sulfonamide AdvReac Intermediate Itching Verified 04/18/23 10:31 Antibiotics) - Social History Does the pt smoke?: No Smoking Status: Never smoker Does the pt drink ETOH?: No Does the pt have substance abuse?: No - Immunizations Immunizations are current?: Yes - POLST Patient has POLST: No PD ED PE NORMAL - General General: Alert and oriented X 3, No acute distress, Well developed/nourished - HEENT HEENT: Atraumatic, Moist mucous membranes, Pharynx benign - Neck Neck: Supple, no meningeal sign - Cardiac Cardiac: Strong equal pulses, Other (Irregularly irregular, normal rate) - Respiratory Respiratory: No respiratory distress, Clear bilaterally - Abdomen Abdomen: Soft, Non tender, Non distended - Derm Derm: Warm and dry - Neuro Neuro: Normal speech Results - Vitals Vitals: Vital Signs - 24 hr 09/07/23 09/07/23 09/07/23 08:39 09:53 10:00 Temperature 36.7 C Heart Rate 45 L 79 61 Respiratory 18 18 15 Rate Blood Pressure 125/57 L 120/62 118/45 L O2 Saturation 97 92 95 09/07/23 09/07/23 09/07/23 10:39 11:12 11:54 Temperature Heart Rate 71 76 73 Respiratory 16 16 18 Rate Blood Pressure 113/55 L 128/59 L 120/61 O2 Saturation 92 92 95 Oxygen O2 Source Room air - EKG (time done) 0841 EKG releavant findings:: EKG personally interpreted by author of this note. Relevant findings are: Rate 88, atrial fibrillation, no STEMI, - Labs Labs: Laboratory Tests 09/07/23 09/07/23 09/07/23 09:03 09:03 10:55 WBC 15.4 H RBC 5.75 H Hgb 17.8 H Hct 55.1 H MCV 95.8 MCH 31.0 MCHC 32.3 RDW 15.3 H Plt Count 231 MPV 10.6 Neut # (Auto) 13.8 H Lymph # (Auto) 0.8 L [place] # (Auto) 0.6 Eos # (Auto) 0.1 Baso # (Auto) 0.1 Absolute Nucleated RBC 0.00 Nucleated RBC % 0.0 Sodium 138 Potassium 4.4 Chloride 103 Carbon Dioxide 27 Anion Gap 8.0 BUN 21 H Creatinine 1.0 Estimated GFR (MDRD) 52 L Glucose 139 H Calcium 10.5 H Total Bilirubin 0.9 AST 14 ALT 28 Alkaline Phosphatase 75 Troponin I High Sens 6.2 6.1 Total Protein 7.0 Albumin 4.3 Globulin 2.7 Albumin/Globulin Ratio 1.6 Lipase 14 PD Medical Decision Making - ED course Complexity details: reviewed results, re-evaluated patient, d/w patient ED course: Patient is an 87-year-old female presenting for evaluation of chest pain. She does have a history of A-fib but is anticoagulated thus I feel PE is less likely. She is feeling better here. EKG is reviewed and nonischemic. CBC, chemistry, troponin x 2 were obtained and reviewed and without significant findings. Chest x-ray which I reviewed is negative for consolidation or effusion. Patient counseled on need for close follow-up regarding her chest pain as well as concerning symptoms to return for. Departure - Departure Disposition: 01 Home, Self Care Clinical Impression: Chest pain Condition: Stable Instructions: ED Chest Pain Atypical Unkn Cause Comments: Please follow-up with your primary care doctor regarding your chest pain. Return to the emergency department any worsening. In the meanwhile I would recommend avoiding anything spicy/acidic/tomato based or lactose-containing In the event this was a contributing factor to your symptoms. Forms: PCP List Discharge Date/Time: 09/07/23 12:15
[2023-09-07 11:59] VITALS: BP 120/61; O2SAT 95
== END 2023-09-07 12:15 | disposition home or self-care (01) ==
LOC: ED 08:35
DX: R07.9 Chest pain, unspecified (principal); I48.91 Unspecified atrial fibrillation; Z79.01 Long term (current) use of anticoagulants
CPT/HCPCS: 36415; 80053; 83690; 84484; 85025; 93005; 96374; 99283

== ENCOUNTER 2024-02-19 06:56 | Outpatient (CLI) | payer MEDICARE | END 2024-02-19 23:59 | disposition critical access hospital (66) | LOC: EMS 06:56 | DX: R07.89 Other chest pain (principal); R53.1 Weakness; R11.0 Nausea; R51.9 Headache, unspecified; I48.91 Unspecified atrial fibrillation; Z79.01 Long term (current) use of anticoagulants | CPT/HCPCS: A0425; A0427 ==

== ENCOUNTER 2024-02-19 07:07 | Emergency (ER) | payer MEDICARE ==
--- NOTE | 2024-02-19 07:32 | ED Physician Documentation ---
PD HPI CHEST PAIN - Stated complaint Stated Complaint: CP - Chief complaint Chief Complaint: Cardiac - History obtained from History obtained from: Patient, EMS - History of Present Illness Timing - onset: How many hours ago (1), Today Timing - onset during: Sleep (awoke and noted some substernal chest pressure/pain as getting up from bed. No dyspnea nor pain with breathing.) Timing - details: Abrupt onset, Now resolved (went away after several minutes.) Quality: Tightness, Aching. No: Sharp Location: Substernal, Epigastric Radiation: No: Back Worsened by: No: Inspiration, Movement Similar symptoms before: Has not had sx before Review of Systems Constitutional: denies: Fever Throat: denies: Sore throat Respiratory: denies: Cough GI: denies: Abdominal Pain, Vomiting, Diarrhea, Bloody / black stool Musculoskeletal: denies: Extremity swelling PD PAST MEDICAL HISTORY - Past Medical History Past Medical History: Yes Cardiovascular: Hypertension, High cholesterol, Atrial fibrillation Respiratory: None Neuro: TIA Endocrine/Autoimmune: None GI: GERD, Chronic diarrhea, Cholelithiasis : Kidney stones HEENT: Chronic vision loss, Chronic sinusitis, Chronic hearing loss Psych: None Musculoskeletal: Osteoarthritis, Chronic back pain Derm: None - Past Surgical History Past Surgical History: Yes General: Colonoscopy /[employer]OR: Hysterectomy HEENT: Tonsil/Adenoidectomy - Present Medications Home Medications: Ambulatory Orders Medication Instructions Recorded Confirmed Omeprazole [PriLOSEC] 40 mg PO QDAC 09/04/13 05/26/23 Rivaroxaban [Xarelto] 20 mg PO DAILY 05/27/21 05/26/23 Atorvastatin [Lipitor] 10 mg PO DAILY 05/26/23 Colestipol HCl [Colestid] 2 gm PO DAILY 05/26/23 Ascorbic Acid [Vitamin C] 1,000 mg PO DAILY 05/27/23 05/27/23 Calcium Carbonate/Vitamin D3 1 cap PO DAILY 05/27/23 05/27/23 [Calcium 600 mg-D3 10 Mcg Sfgl] Cholecalciferol [Vitamin D3] 50 mcg PO DAILY 05/27/23 05/27/23 Cyanocobalamin (Vitamin B-12) 1,000 mcg PO DAILY 05/27/23 05/27/23 [Vitamin B-12] Ferrous Sulfate [Feosol] 325 mg PO DAILY 05/27/23 05/27/23 Gabapentin [Neurontin] 300 mg PO QPM 05/27/23 05/27/23 Glucosamine Sulfate 2,000 mg PO DAILY 05/27/23 05/27/23 Lactobacillus Acidophilus 1 tab PO DAILY 05/27/23 05/27/23 [Acidophilus] Probiotic Multi-Enzyme 1 tab PO DAILY 05/27/23 05/27/23 Psyllium Husk [Metamucil] 6 cap PO DAILY 05/27/23 05/27/23 Digoxin [Lanoxin] 125 mcg PO MOWEFR #15 tablet 05/29/23 Loperamide [Imodium] 2 mg PO QID PRN #60 cap 05/29/23 Metoprolol Succinate [Toprol Xl] 100 mg PO 0800,1700 #60 tab 05/29/23 diltiaZEM CD [Cardizem Cd] 180 mg PO 1200,2200 #60 cap 05/29/23 Sucralfate [Carafate] 1 gm PO HS 10 Days #100 ml 02/19/24 - Allergies Allergies/Adverse Reactions: Allergies Allergy/AdvReac Type Severity Reaction Status Date / Time latex Allergy Intermediate swelling Verified 02/19/24 07:24 ascorbic acid Allergy Unknown Unknown Verified 02/19/24 07:24 Penicillins AdvReac Intermediate Rash Verified 02/19/24 07:24 Sulfa (Sulfonamide AdvReac Intermediate Itching Verified 02/19/24 07:24 Antibiotics) - Living Situation Living Situation: reports: Alone Living Arrangement: reports: At home - Social History Does the pt smoke?: No Smoking Status: Never smoker Does the pt drink ETOH?: No Does the pt have substance abuse?: No - Immunizations Immunizations are current?: Yes - POLST Patient has POLST: No PD ED PE NORMAL - Vitals Vital signs reviewed: Yes - General General: Alert and oriented X 3, No acute distress, Well developed/nourished - Neck Neck: Supple, no meningeal sign, No adenopathy - Cardiac Cardiac: No: RRR (irregular but controlled rate. ) - Respiratory Respiratory: No respiratory distress, Clear bilaterally, Other (no chestwall tenderness. ) - Abdomen Abdomen: Soft, Non tender - Derm Derm: Normal color, Warm and dry - Extremities Extremities: No edema, No calf tenderness / cord - Neuro Neuro: No motor deficit, Normal speech. No: Alert and oriented X 3 (person and place. ) Results - Vitals Vitals: Oxygen O2 Source Room air - EKG (time done) 07:26 EKG releavant findings:: EKG personally interpreted by author of this note. Relevant findings are: Rate: Rate (enter#) (54) Rhythm: Atrial fibrillation Ischemia: Normal ST segments. No: ST elevation c/w ischemia, ST depression - Labs Labs: Laboratory Tests 02/19/24 02/19/24 07:50 07:50 WBC 7.2 RBC 5.06 Hgb 16.2 H Hct 50.2 H MCV 99.2 H MCH 32.0 H MCHC 32.3 RDW 13.3 Plt Count 225 MPV 10.3 Neut # (Auto) 5.0 Lymph # (Auto) 1.4 L [place] # (Auto) 0.6 Eos # (Auto) 0.1 Baso # (Auto) 0.1 Absolute Nucleated RBC 0.00 Nucleated RBC % 0.0 Sodium 141 Potassium 3.9 Chloride 104 Carbon Dioxide 31 Anion Gap 6.0 BUN 11 Creatinine 0.8 Estimated GFR (MDRD) 68 L Glucose 106 H Calcium 9.6 Magnesium 1.9 Total Bilirubin 0.6 AST 12 ALT 18 Alkaline Phosphatase 79 Troponin I High Sens 8.8 Total Protein 6.5 Albumin 4.0 Globulin 2.5 Albumin/Globulin Ratio 1.6 Lipase 11 - Rads (name of study) chest xray Relevant Findings:: Prelim report reviewed (no acute process), EMP independent interpretation of test PD Medical Decision Making - ED course Complexity details: reviewed results (normal ECG (rate controlled known atrial fib without ischemic changes) and troponin reasonable period of time after the pain event. ), re-evaluated patient (Patient remains without any pain or discomf ort. EKG chest x-ray and troponin are negative. Character and timing of the pain suggests possible reflux esohageal irritation or spasm, in lieu of normal cardiopulmonary testing. Can try carafate pre-sleep nightly. ), considered differential (Awoke with epigastric to substernal chest discomfort that she got up from bed. It resolved without intervention per se. Risk factors for coronary disease so we will get chest x-ray and EKG and troponin as well as lipase and LFTs. Consider other possibilities such as reflux or esophagitis/muscular), d/w patient Departure - Departure Disposition: 01 Home, Self Care Clinical Impression: Chest pain Condition: Stable Record reviewed to determine appropriate education?: Yes Instructions: ED Chest Pain Atypical Unkn Cause Follow-Up: Shameka Velasquez MD [Primary Care Provider] - Prescriptions: Sucralfate [Carafate] 1 gm PO HS 10 Days #100 ml Comments: Your EKG, chest x-ray, blood tests are normal. In particular 1 called troponin is negative which would indicate no signs of heart failure/heart muscle injury/heart attack. Unclear the cause of your pain. Blood test also indicate no signs of inflam mation of the pancreas or liver. Chest x-ray was clear without any signs of pneumonia, collapsed lung, fluid in the lungs. No evidence of more significant cause. Consideration can be irritation of the esophagus from reflux or musculoskeletal pains. At this point continue with usual medicines. You could add a medication before bed to help with coating the stomach. Once such is called sacral fate. I wrote a prescription for that. Follow-up with your primary care for persistent or recurring episodes. Forms: PCP List Discharge Date/Time: 02/19/24 09:36
[2024-02-19 07:34] VITALS: BP 167/62; O2SAT 95
[2024-02-19] MEDS: MAG HYDROX/AL HYDROX/SIMETH 30 ML UDC PO STA (07:47)
[2024-02-19 07:57] LABS: BASOPHILS # (AUTO) 0.1 10^3/uL (0.0-0.1); BASOPHILS % (AUTO) 0.8 %; EOSINOPHILS # (AUTO) 0.1 10^3/uL (0.0-0.7); EOSINOPHILS % (AUTO) 1.1 %; HCT - HEMATOCRIT 50.2 % (37.0-47.0); HGB - HEMOGLOBIN 16.2 g/dL (12.0-16.0); LYMPHOCYTES # (AUTO) 1.4 10^3/uL (1.5-3.5); LYMPHOCYTES % (AUTO) 18.9 %; MEAN CORPUSCULAR HGB CONC 32.3 g/dL (32.0-36.0); MEAN CORPUSCULAR VOLUME 99.2 fL (81.0-99.0); MEAN PLATELET VOLUME 10.3 fL (7.9-10.8); MONOCYTES # (AUTO) 0.6 10^3/uL (0.0-1.0); MONOCYTES % (AUTO) 8.9 %; NEUTROPHILS % (AUTO) 69.9 %; PLT - PLATELET COUNT 225 10^3/uL (130-450); RED BLOOD COUNT 5.06 10^6/uL (4.20-5.40); RED CELL DISTRIBUTION WIDTH 13.3 % (12.0-15.0); WHITE BLOOD COUNT 7.2 x10^3/uL (4.8-10.8)
--- NOTE | 2024-02-19 08:20 | XRAY Report ---
PROCEDURE: Chest 1V INDICATIONS: Chest Pain TECHNIQUE: One view of the chest was acquired. COMPARISON: Chest x-ray, 09/07/2023, 05/26/2023. FINDINGS: Surgical changes and devices: None. Lungs and pleura: Prominent pulmonary interstitium, unchanged. No focal consolidation or pleural eff usion. No pneumothorax Mediastinum: Mediastinal contours appear normal. Heart size is mildly increased. Bones and chest wall: No suspicious bony lesions. Overlying soft tissues appear unremarkable. IMPRESSION: Mild cardiomegaly. Reviewed by: Deidra Hammer MD on 02/19/2024 8:19 AM PDT Approved by: Deidra Hammer MD on 02/19/2024 8:19 AM PDT Station ID: [id number]
[2024-02-19 08:34] LABS: ALBUMIN/GLOBULIN RATIO 1.6 (1.0-2.2); BILIRUBIN,TOTAL 0.6 mg/dL (0.2-1.0); CALCIUM 9.6 mg/dL (8.5-10.3); CREATININE 0.8 mg/dL (0.6-1.3); MAGNESIUM 1.9 mg/dL (1.7-2.3); POTASSIUM 3.9 mmol/L (3.5-4.5); TOTAL PROTEIN 6.5 g/dL (6.4-8.9)
[2024-02-19 08:36] LABS: TROPONIN I HIGH SENSITIVITY 8.8 ng/L (2.3-14.8)
== END 2024-02-19 09:36 | disposition home or self-care (01) ==
LOC: EDUNIT# → ED 07:07
DX: R07.9 Chest pain, unspecified (principal); I48.91 Unspecified atrial fibrillation; Z79.01 Long term (current) use of anticoagulants; I10 Essential (primary) hypertension; E78.00 Pure hypercholesterolemia, unspecified; Z86.73 Personal history of transient ischemic attack (TIA), and cerebral infarction without residual deficits
CPT/HCPCS: 36415; 71045; 80053; 83690; 83735; 84484; 85025; 93005; 99284; A9270

== ENCOUNTER 2024-06-11 10:16 | Outpatient (CLI) | payer MEDICARE, MEDICAID ==
[2024-06-11 10:30] LABS: BASOPHILS % (AUTO) 0.6 %; EOSINOPHILS # (AUTO) 0.1 10^3/uL (0.0-0.7); EOSINOPHILS % (AUTO) 0.9 %; HCT - HEMATOCRIT 53.3 % (37.0-47.0); HGB - HEMOGLOBIN 17.1 g/dL (12.0-16.0); LYMPHOCYTES # (AUTO) 1.7 10^3/uL (1.5-3.5); LYMPHOCYTES % (AUTO) 25.7 %; MEAN CORPUSCULAR HEMOGLOBIN 31.6 pg (27.0-31.0); MEAN CORPUSCULAR HGB CONC 32.1 g/dL (32.0-36.0); MEAN CORPUSCULAR VOLUME 98.5 fL (81.0-99.0); MEAN PLATELET VOLUME 10.4 fL (7.9-10.8); MONOCYTES # (AUTO) 0.4 10^3/uL (0.0-1.0); MONOCYTES % (AUTO) 6.7 %; NEUTROPHILS # (AUTO) 4.2 10^3/uL (1.5-6.6); NEUTROPHILS % (AUTO) 65.8 %; PLT - PLATELET COUNT 235 10^3/uL (130-450); RED BLOOD COUNT 5.41 10^6/uL (4.20-5.40); RED CELL DISTRIBUTION WIDTH 13.7 % (12.0-15.0); WHITE BLOOD COUNT 6.4 x10^3/uL (4.8-10.8)
[2024-06-11 10:47] LABS: ALBUMIN 4.2 g/dL (3.2-5.5); ALBUMIN/GLOBULIN RATIO 1.9 (1.0-2.2); ALKALINE PHOSPHATASE 84 IU/L (42-121); ALT ALANINE AMINOTRANSFERASE 16 IU/L (10-60); AST ASPARTATE AMINOTRANSFERASE 12 IU/L (10-42); BILIRUBIN,TOTAL 0.8 mg/dL (0.2-1.0); BUN - BLOOD UREA NITROGEN 13 mg/dL (6-20); CALCIUM 9.7 mg/dL (8.5-10.3); CARBON DIOXIDE - CO2 36 mmol/L (21-32); CHLORIDE 101 mmol/L (101-111); CHOL/HDL RATIO 2.5 (<4.4); CHOLESTEROL 123 mg/dL; GFR - MDRD 52 (>89); GLUCOSE 116 mg/dL (74-104); HDL CHOLESTEROL 49 mg/dL; LDL CHOLESTEROL,CALCULATED 42 mg/dL; LDL/HDL RATIO 0.9 (<4.4); POTASSIUM 4.4 mmol/L (3.5-4.5); SODIUM 141 mmol/L (135-145); TOTAL PROTEIN 6.4 g/dL (6.4-8.9); TRIGLYCERIDES 159 mg/dL; VLDL CHOLESTEROL 32 mg/dL
== END 2024-06-11 10:17 | disposition home or self-care (01) ==
LOC: LAB 10:16
PROVIDERS: ATTEND Nurse Practitioner Adult Health
DX: Z00.00 Encounter for general adult medical examination without abnormal findings (principal); Z12.11 Encounter for screening for malignant neoplasm of colon; Z13.6 Encounter for screening for cardiovascular disorders
CPT/HCPCS: 36415; 80053; 80061; 83721; 85025

== ENCOUNTER 2024-10-10 17:45 | Observation (INO) ==
--- NOTE | 2024-10-10 18:06 | ED Physician Documentation ---
History of Present Illness Stated complaint Stated Complaint: CONFUSED Chief complaint Chief Complaint: Neuro History obtained from History obtained from: Patient and Family Additonal information Additional information: 89-year-old woman with history of CHF and A-fib on Eliquis and digoxin presents accompanied by daughter for confusion and potential stroke. Time of onset is not quite clear. RN noted to me that it started roughly 2 hours ago but that actually when the daughter went over to the house. The patient says it is probably been going on for 2 days. She usually has an in-home caregiver, a family member who has been out recently. Patient has no physical complaints except for some heaviness behind her eyes and she says she was nauseous recently but not currently. She has been compliant with her Eliquis. Has a history of TIA. Meds/Allgy Home Medications Ambulatory Orders Medication Instructions Recorded Confirmed atorvastatin 10 mg tablet 10 mg PO DAILY 05/26/23 09/18/24 Probiotic Multi-Enzyme 1 tab PO DAILY 05/27/23 09/18/24 cholecalciferol (vitamin D3) 25 50 mcg PO DAILY 05/27/23 09/18/24 mcg (1,000 unit) tablet cyanocobalamin (vitamin B-12) 1,000 mcg PO DAILY 05/27/23 09/18/24 1,000 mcg capsule gabapentin 300 mg capsule 300 mg PO QPM 05/27/23 09/18/24 glucosamine sulfate 1,000 mg tablet 2,000 mg PO DAILY 05/27/23 09/18/24 apixaban 5 mg tablet (Eliquis) 5 mg PO BID 09/18/24 09/18/24 ascorbic acid (vitamin C) 500 mg 500 mg PO QDAY 09/18/24 09/18/24 tablet colestipol 1 gram tablet (Colestid) 1 g PO DAILY 09/18/24 09/18/24 diclofenac sodium 1 % topical gel topical 09/18/24 09/18/24 digoxin 125 mcg (0.125 mg) tablet 125 mcg PO MOWEFR 09/18/24 09/18/24 ferrous sulfate 325 mg (65 mg 65 mg PO DAILY 09/18/24 09/18/24 iron) tablet omeprazole 20 mg capsule,delayed 20 mg PO BID 09/18/24 09/18/24 release ondansetron HCl 4 mg tablet 4 mg PO PRN 09/18/24 09/18/24 metoprolol succinate 50 mg 50 mg PO 0800,1700 #90 tabs 09/27/24 tablet,extended release 24 hr diltiazem HCl 180 mg 180 mg PO 1200,2200 #90 caps 10/10/24 capsule,extended release 24 hr Allergies Allergies Allergy/AdvReac Type Severity Reaction Status Date / Time latex Allergy Intermediate swelling Verified 10/10/24 17:53 ascorbic acid Allergy Unknown Unknown Verified 10/10/24 17:53 Penicillins AdvReac Intermediate Rash Verified 10/10/24 17:53 Sulfa (Sulfonamide AdvReac Intermediate Itching Verified 10/10/24 17:53 Antibiotics) PFSH Family History Family History Mother Breast cancer CVA (cerebral vascular accident) Arthritis Heart attack High blood pressure Father CVA (cerebral vascular accident) Diabetes High blood pressure Tuberculosis Brother Asthma Kidney disease High blood pressure Social History Social History (Updated 09/18/24 @ 10:16 by Jordon Montilla MA) Smoking Status: Never smoker If you are a former smoker, when did you quit? (Date/Year): non smoker Second hand tobacco smoke exposure: No Do you dip or chew tobacco?: No Do you vape?: No Patient requests smoking cessation consult: No Initiate information on smoking cessation: No Living arrangement: At home Living Condition: With family Relationship: Level: Independent Do you feel safe in your home environment?: Yes Suffered physical, verbal, emotional, or financial abuse?: No History of Abuse: No ETOH Use: None Substance Use: denies use Are you sexually active?: No Retired: Yes Service: No Are you following a diet prescribed by a doctor: No Are you following a special diet: No POLST Patient has POLST: No Exam Constitutional normal general appearance and no apparent distress She is alert and oriented to person and place, but says it is October and cannot come up with the year. Respiratory breath sounds equal bilaterally, normal respiratory effort and clear to auscultation bilaterally Cardiovascular Irregularly irregular without murmur Neurology NIH stroke scale of 2 for the disorientation only. Psychiatry orientation abnormal (disoriented to time) Results Vitals Vitals: Vital Signs - 24 hr 10/10/24 17:53 10/10/24 18:21 10/10/24 19:00 Temperature 36.8 C Temperature Source Tympanic Pulse Rate 69 92 88 Respiratory Rate 18 20 25 H Blood Pressure 134/86 H 148/85 H 166/69 H O2 Saturation 99 98 96 O2 Source Room air Room air Room air Pain Intensity 0 0 0 10/10/24 19:47 Temperature Temperature Source Pulse Rate 88 Respiratory Rate 17 Blood Pressure 152/102 H O2 Saturation 95 O2 Source Room air Pain Intensity 0 Oxygen O2 Source Room air EKG (time done) 181: EKG releavant findings:: EKG personally interpreted by author of this note. Relevant findings are: Atrial fibrillation with a rate of 80, single PVC on the rhythm strip, low voltage and Q waves in the septum. No ST elevation or depression. Labs Labs: Laboratory Tests 10/10/24 10/10/24 18:19 18:42 WBC 7.8 RBC 5.50 H Hgb 17.0 H Hct 53.4 H MCV 97.1 MCH 30.9 MCHC 31.8 L RDW 12.8 Plt Count 283 MPV 10.3 Neut # (Auto) 5.6 Lymph # (Auto) 1.0 L [place] # (Auto) 0.8 Eos # (Auto) 0.2 Baso # (Auto) 0.1 Absolute Nucleated RBC 0.00 Nucleated RBC % 0.0 Sodium 137 Potassium 3.8 Chloride 99 L Carbon Dioxide 30 Anion Gap 8.0 BUN 10 Creatinine 0.8 Estimated GFR (MDRD) 68 L Glucose 105 H Calcium 10.5 H Total Bilirubin 0.6 AST 13 ALT 15 Alkaline Phosphatase 87 Total Protein 7.3 Albumin 4.5 Globulin 2.8 Albumin/Globulin Ratio 1.6 Urine Color YELLOW Urine Clarity CLEAR Urine pH 6.5 Ur Specific [place] <=1.005 Urine Protein NEGATIVE Urine Glucose (UA) NEGATIVE Urine Ketones NEGATIVE Urine Occult Blood NEGATIVE Urine Nitrite NEGATIVE Urine Bilirubin NEGATIVE Urine Urobilinogen 0.2 (NORMAL) Ur Leukocyte Esterase NEGATIVE Ur Microscopic Review NOT INDICATED Urine Culture Comments NOT INDICATED Last Dose Date UNK Last Dose Time UNK Digoxin 0.6 PD Medical Decision Making ED course ED course: She presents with some confusion. Consideration for stroke but she is not a tPA candidate for multiple reasons including chronic anticoagulation and unclear time of onset. Differential besides stroke would include infectious process or simply worsening of cognitive decline which has been noted by daughter. 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 There is flow both proximal and distal to this and her examination is not really consistent with a large stroke syndrome such as an MCA syndrome. So I do wonder if the dissection is incidental. Call placed to telestroke and I discussed case with Dr. Crandall, Tel[facility] who will review the images and call me back. Dr. Crandall called me back at 7:41 PM and has reviewed the imaging and does not feel this is consistent with a dissection/CVA. Recommends admission for MRI and observation of acute encephalopathy, likely on chronic mild cognitive decline. Updated patient and family. I will give her some IV fluids, note made that her CBC shows hemoconcentration so she may be dry. Spoke with JENNA Anglin for admission at 7:57 PM. The patient and family are counseled as to the diagnosis and need for admission. This document was made in part using voice recognition software, while efforts are made to proofread this document, sound alike an grammatical errors may occur. Discharge Plan Discharge Patient Disposition: ED Place in Observation Condition: Stable Clinical Impression: Chronic anticoagulation, Encephalopathy Atrial fibrillation Qualifiers: Atrial fibrillation type: unspecified chronic Qualified Code(s): I48.20 - Chronic atrial fibrillation, unspecified Prescriptions: No Action metoprolol succinate 50 mg tablet extended release 24 hr 50 mg PO 0800,1700 Qty: 90 3RF Rx Instructions: Take twice a day: 1 at breakfast, and 1 with dinner at 6:00PM diltiazem HCl 180 mg capsule,extended release 24hr 180 mg PO 1200,2200 Qty: 90 0RF Rx Instructions: Take twice a day: one at lunchtime and one at bedtime omeprazole 20 mg capsule,delayed release(DR/EC) 20 mg PO BID Rx Instructions: take one capsule by mouth twice daily before breakfast and dinner atorvastatin 10 MG tablet 10 mg PO DAILY Rx Instructions: Recently prescribed, but patient has not started yet gabapentin 300 MG capsule 300 mg PO QPM cholecalciferol (vitamin D3) 25 MCG tablet 50 mcg PO DAILY cyanocobalamin (vitamin B-12) 1,000 MCG capsule 1,000 mcg PO DAILY glucosamine sulfate 1,000 MG tablet 2,000 mg PO DAILY Probiotic Multi-Enzyme 1 EACH tablet 1 tab PO DAILY digoxin 125 mcg (0.125 mg) tablet 125 mcg PO MOWE Rx Instructions: Take 1 tablet in the morning every Tuesday, Tuesday, and Tuesday Eliquis 5 mg tablet 5 mg PO BID ascorbic acid (vitamin C) 500 mg tablet 500 mg PO QDAY ondansetron HCl 4 mg tablet 4 mg PO PRN diclofenac sodium 1 % gel topical colestipol [Colestid] 1 gram tablet 1 g PO DAILY Rx Instructions: Recently prescribed, but patient has not started yet ferrous sulfate 325 mg (65 mg iron) tablet 65 mg PO DAILY Print Language: Slovak Stand Alone Forms: PCP List
[2024-10-10] MEDS ORDERED: iohexoL-300 100 ML VIAL ONE (18:07)
[2024-10-10 18:24] LABS: BASOPHILS # (AUTO) 0.1 10^3/uL (0.0-0.1); BASOPHILS % (AUTO) 0.8 %; EOSINOPHILS # (AUTO) 0.2 10^3/uL (0.0-0.7); EOSINOPHILS % (AUTO) 2.6 %; HCT - HEMATOCRIT 53.4 % (37.0-47.0); LYMPHOCYTES % (AUTO) 13.2 %; MEAN CORPUSCULAR HEMOGLOBIN 30.9 pg (27.0-31.0); MEAN CORPUSCULAR HGB CONC 31.8 g/dL (32.0-36.0); MEAN CORPUSCULAR VOLUME 97.1 fL (81.0-99.0); MEAN PLATELET VOLUME 10.3 fL (7.9-10.8); MONOCYTES # (AUTO) 0.8 10^3/uL (0.0-1.0); MONOCYTES % (AUTO) 10.8 %; NEUTROPHILS # (AUTO) 5.6 10^3/uL (1.5-6.6); PLT - PLATELET COUNT 283 10^3/uL (130-450); RED CELL DISTRIBUTION WIDTH 12.8 % (12.0-15.0); WHITE BLOOD COUNT 7.8 x10^3/uL (4.8-10.8)
[2024-10-10 18:41] LABS: ALBUMIN 4.5 g/dL (3.2-5.5); ALBUMIN/GLOBULIN RATIO 1.6 (1.0-2.2); BILIRUBIN,TOTAL 0.6 mg/dL (0.2-1.0); CALCIUM 10.5 mg/dL (8.5-10.3); CREATININE 0.8 mg/dL (0.6-1.3); DIGOXIN 0.6 ng/mL; POTASSIUM 3.8 mmol/L (3.5-4.5); TOTAL PROTEIN 7.3 g/dL (6.4-8.9)
--- NOTE | 2024-10-10 18:42 | CT Report ---
PROCEDURE: CT Head WO INDICATIONS: confusion TECHNIQUE: Noncontrast 4.5 mm thick angled axial sections acquired from the foramen magnum to the vertex. For r adiation dose reduction, the following was used: automated exposure control, adjustment of mA and/or kV according to patient size. COMPARISON: 04/18/2023 FINDINGS: Image quality: Diagnostic CSF spaces: Basal cisterns are patent. Lateral ventricles are symmetric. Volume: Vascular calcifications. Periventricular white matter disease is commonly seen with chronic m icroangiopathy. Volume loss is present. These findings are mild to moderate. Brain: No acute hemorrhage. No gross loss of akins-white differentiation. Craniofacial structures: No dense paranasal sinus opacity. No mastoid effusions identified Partially empty sella. IMPRESSION: No acute intracranial hemorrhage. Discussed with Dr. Moreno. Consider MRI if there is high concern for infarction. Reviewed by: Maikel Kilgore MD on 10/10/2024 6:41 PM PST Approved by: Maikel Kilgore MD on 10/10/2024 6:41 PM PST Station ID: [id number]
[2024-10-10 18:52] LABS: BILIRUBIN,URINE NEGATIVE (NEGATIVE); GLUCOSE, URINE (UA) NEGATIVE (NEGATIVE); KETONES,URINE (UA) NEGATIVE (NEGATIVE); LEUKOCYTE ESTERASE, URINE NEGATIVE (NEGATIVE); NITRITE,URINE NEGATIVE (NEGATIVE); OCCULT BLOOD,URINE NEGATIVE (NEGATIVE); PH,URINE 6.5 PH (5.0-7.5); PROTEIN,URINE NEGATIVE (NEGATIVE); UROBILINOGEN,URINE 0.2 (NORMAL) E.U./dL (NORMAL)
[2024-10-10 18:55] LABS: CLARITY,URINE CLEAR (CLEAR)
--- NOTE | 2024-10-10 19:05 | CT Report ---
PROCEDURE: CT Angio Head/Neck INDICATIONS: CVA sx TECHNIQUE: After the administration of intravenous contrast, 1 mm thick sections acquired from the aortic arch t hrough the [place]. 3-dimensional htvipaf-kibmdvdfz-kopjkhvyau (MIP) and/or volume renderin g reformats were acquired of the central intracranial vasculature and neck separately. For radiation dose reduction, the following was used: automated exposure control, adjustment of mA and/or kV acco rding to patient size. 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 The left anterior cerebral artery appears pa tent. MCAs: Patent. AComm: no aneurysm Venous sinuses: Not well assessed Posterior circulation: Dominance: equal Vertebral arteries: Mild calcification Basilar artery: Patent PComms: Dominant on the right automatic line set up mechanic: Patent There is overall mild to moderate intracranial vascular irregularity, for example in the right [employer] an d bilateral MCAs Neck angiography Aortic arch and subclavian arteries: Mild calcifications CCAs: Patent ICA origins (by NASCET criteria): Mild calcifications without significant narrowing ICAs: Focal dissection is seen in the left ICA origin. There is no complete occlusion. ECAs: origins are patent. Vertebral arteries: Patent Soft tissues: Enlarged goitrous right thyroid again seen. Lung apices: Not well assessed due to significant artifact from the contrast bolus. No apical pneumot horax Bones: There are degenerative changes. 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 Normal contrast flow is seen proximal and distal to this r egion. No large vessel occlusion or high-grade stenosis elsewhere. Other areas of atherosclerotic narrowing as described above. Mild to moderate degree of intracranial atherosclerosis also present. The estimate of stenosis included in the report of the imaging study was calculated using the NASCET method Reviewed by: Maikel Kilgore MD on 10/10/2024 7:03 PM PST Approved by: Maikel Kilgore MD on 10/10/2024 7:03 PM PST Station ID: [id number]
--- NOTE | 2024-10-10 20:08 | HISTORY & PHYSICAL EXAMINATION ---
Chief Complaint Chief Complaint Chief Complaint: AMS History of Present Illness Admitted From Admitted From:: home History Obtained From Records Reviewed: primary care OV 09/18/24 History of Present Illness HPI Comment/Other: presents to the ED with AMS. Unclear when last known normal. on Eliquis for a fib. Question of L proximal ICA dissection vs congenital fenestration of the Left ICU. CT head was negatve. Has been confused since at least 4pm, in the setting of baseline mild cog impairment Lives with family but her primary caregiver is out of town. Presented to the emergency department via POV with confusion for several hours. She states that she feels like she is mixed up recently and her thinking just is not right. She denies any recent falls. She is anticoagulated for atrial fibrillation on Eliquis and has been for some time. There is no family at the bedside. Patient is unable to give a clear history with regards to her surrogate decision maker or her CODE STATUS.She will therefore be full code by default at this time. Meds/Allgy Home Medications Ambulatory Orders Medication Instructions Recorded Confirmed atorvastatin 10 mg tablet 10 mg PO DAILY 05/26/23 09/18/24 Probiotic Multi-Enzyme 1 tab PO DAILY 05/27/23 09/18/24 cholecalciferol (vitamin D3) 25 50 mcg PO DAILY 05/27/23 09/18/24 mcg (1,000 unit) tablet cyanocobalamin (vitamin B-12) 1,000 mcg PO DAILY 05/27/23 09/18/24 1,000 mcg capsule gabapentin 300 mg capsule 300 mg PO QPM 05/27/23 09/18/24 glucosamine sulfate 1,000 mg tablet 2,000 mg PO DAILY 05/27/23 09/18/24 apixaban 5 mg tablet (Eliquis) 5 mg PO BID 09/18/24 09/18/24 ascorbic acid (vitamin C) 500 mg 500 mg PO QDAY 09/18/24 09/18/24 tablet colestipol 1 gram tablet (Colestid) 1 g PO DAILY 09/18/24 09/18/24 diclofenac sodium 1 % topical gel topical 09/18/24 09/18/24 digoxin 125 mcg (0.125 mg) tablet 125 mcg PO MOWEFR 09/18/24 09/18/24 ferrous sulfate 325 mg (65 mg 65 mg PO DAILY 09/18/24 09/18/24 iron) tablet omeprazole 20 mg capsule,delayed 20 mg PO BID 09/18/24 09/18/24 release ondansetron HCl 4 mg tablet 4 mg PO PRN 09/18/24 09/18/24 metoprolol succinate 50 mg 50 mg PO 0800,1700 #90 tabs 09/27/24 tablet,extended release 24 hr diltiazem HCl 180 mg 180 mg PO 1200,2200 #90 caps 10/10/24 capsule,extended release 24 hr Allergies Allergies Allergy/AdvReac Type Severity Reaction Status Date / Time latex Allergy Intermediate swelling Verified 10/10/24 17:53 ascorbic acid Allergy Unknown Unknown Verified 10/10/24 17:53 Penicillins AdvReac Intermediate Rash Verified 10/10/24 17:53 Sulfa (Sulfonamide AdvReac Intermediate Itching Verified 10/10/24 17:53 Antibiotics) PFSH Family History Family History Mother Breast cancer CVA (cerebral vascular accident) Arthritis Heart attack High blood pressure Father CVA (cerebral vascular accident) Diabetes High blood pressure Tuberculosis Brother Asthma Kidney disease High blood pressure Social History Social History (Updated 09/18/24 @ 10:16 by Jordon Montilla MA) Smoking Status: Never smoker If you are a former smoker, when did you quit? (Date/Year): non smoker Second hand tobacco smoke exposure: No Do you dip or chew tobacco?: No Do you vape?: No Patient requests smoking cessation consult: No Initiate information on smoking cessation: No Living arrangement: At home Living Condition: With family Relationship: Level: Independent Do you feel safe in your home environment?: Yes Suffered physical, verbal, emotional, or financial abuse?: No History of Abuse: No ETOH Use: None Substance Use: denies use Are you sexually active?: No Retired: Yes Service: No Are you following a diet prescribed by a doctor: No Are you following a special diet: No POLST Patient has POLST: No Review of Systems Status of ROS: 10 or more systems reviewed and unremarkable except as noted in history and below Constitutional Reports: Poor appetite; Denies: Fatigue or Fever Eyes Reports: Corrective lenses; Denies: Vision loss Ears, nose, mouth, and throat Denies: Tinnitus, Change in hearing or Vertigo Cardiovascular Denies: Irregular heart rate, chest pain, palpitations or edema Respiratory Denies: Cough Gastrointestinal Denies: Abdominal pain Genitourinary Reports: Urinary frequency; Denies: Painful urination Integumentary/Breast Denies: Rash Neurological Reports: Confusion; Denies: Weakness in extremities, Numbness in extremities, Pre-existing deficit or Vertigo Psychiatric Denies: Depression Endocrine Denies: Fatigue Hematologic/Lymphatic Denies: Anemia Prior Level of Functionality: lives at home with cargiver assistance Exam Constitutional normal general appearance and no apparent distress [facility] normocephalic hard of hearing Eyes PERRL, EOMs intact bilaterally, conjunctivae normal and no scleral icterus Neck/C-Spine visual inspection normal and no carotid bruits Lymph no lymphadenopathy noted Chest inspection of chest normal Respiratory breath sounds equal bilaterally and normal respiratory effort Cardiovascular normal heart rate noted and regular rhythm noted (irregularly irreg) Gastrointestinal abdomen normal to inspection and abdomen soft to palpation Extremities normal to inspection Neurology lab asst II-XII intact, no movement abnormality noted, no focal motor deficit noted, no sensory deficits noted and GCS 15 Psychiatry mental status grossly normal and oriented x3 Skin skin color normal Conclusion/Plan Problem List (1) Encephalopathy: Plan: Unclear if this is an acute mental status changes versus worsening of her cognitive impairment. She does not have a urinary tract infection. She does have elevated hemoglobin which could be hemoconcentration although review of the outpatient record does reveal that she has a history of polycythemia vera. I discussed this patient with Dr. Moreno and we agreed that I would admit the patient for workup of her altered mental status. I have ordered telemetry overnight. I have ordered an echocardiogram for the morning I have ordered an MRI for the morning. I will place her on IV fluids for 1 L to correct any dehydration that may be present. Additionally she can eat and drink at will (2) Atrial fibrillation: Plan: History of atrial fibrillation which does put her at risk for CVA. She is chronically anticoagulated on Eliquis. She is also on digoxin. Her she is not tachycardic this evening. Qualifiers: Atrial fibrillation type: unspecified chronic Qualified Code(s): I48.20 - Chronic atrial fibrillation, unspecified; I48.2 - Chronic atrial fibrillation (3) Chronic anticoagulation: Plan: On Eliquis and digoxin for history of atrial fibrillation. I will continue these medications. Patient denies any falls at home although she does admit to some incidences where she felt that she had to be more careful with her balance. (4) Polycythemia: Plan: History of polycythemia. Elevated hemoglobin on admission looking back, her hemoglobin is normally between 16 and 17. (5) Hx of essential hypertension: Plan: Home blood pressure medications include both metoprolol and diltiazem. Will observe blood pressure overnight and restart these as indicated. Her blood pressure is well less than 160 this evening. Plan I have spent 80minutes in the care of this patient today. This includes time [id number], review and ordering of diagnostic imaging and laboratory studies and consultation with other providers.. Monitoring the patient's signs symptoms, evaluation of medication effectiveness and patient's response to treatment. Lab Results Lab results reviewed: Yes 10/10/24 18:19 10/10/24 18:19 Diagnostic Imaging Results Diagnostic Imaging Results: positive Final report reviewed EKG Results EKG Interpreted Independently: Yes EKG Findings: a fib with rate 80
[2024-10-10] MEDS: AMIODARONE 150 MG/3 ML VIAL IVP STA (20:23)
[2024-10-10] MEDS: SODIUM CHLORIDE 0.9% 1,000 ML IV STA (20:27)
[2024-10-10] MEDS ORDERED: AMIODARONE 360 MG/200 ML 200 ML IV SCH ×2 (21:00)
[2024-10-10] MEDS ORDERED: SODIUM CHLORIDE FLUSH 0.9% 10 ML SYRINGE IVP PRN (21:26)
[2024-10-10] MEDS: APIXABAN 5 MG TABLET PO SCH (23:07)
[2024-10-10] MEDS: diltiaZEM CD 180 MG CAPSULE PO SCH (23:07)
[2024-10-10] MEDS: DIGOXIN 125 MCG TABLET PO SCH (23:07)
[2024-10-10] MEDS: SODIUM CHLORIDE 0.9% 1,000 ML IV SCH (23:07)
[2024-10-10] MEDS: SODIUM CHLORIDE FLUSH 0.9% 10 ML SYRINGE IVP SCH (23:56)
[2024-10-11] MEDS: ONDANSETRON ODT 4 MG TABLET TL PRN (05:32)
[2024-10-11] MEDS: ACETAMINOPHEN 325 MG TABLET PO PRN (05:32)
[2024-10-11] MEDS: METOPROLOL SUCCINATE 50 MG TABLET PO SCH (08:12)
--- NOTE | 2024-10-11 11:31 | ADVANCE CARE PLANNING NOTE ---
Advance Care Planning Planning Encounter Date: 10/11/24 Time: 11:28 Parties in Attendance: Cristal Anglin PA-C, Donna Stewart, Patient. Decisional Capacity of the Patient: She is alert and oriented. She has decisional capacity with insight into her situation. Diagnosis for Encounter (1) Encephalopathy: Summary: resolved. (2) Atrial fibrillation: Qualifiers: Atrial fibrillation type: unspecified chronic Qualified Code(s): I48.20 - Chronic atrial fibrillation, unspecified; I48.2 - Chronic atrial fibrillation (3) Chronic anticoagulation: (4) Polycythemia: (5) Hx of essential hypertension: Encounter Subjective/Patient's Story: recent changes in cognition, but today seems brighter. Has insight into her time left on earth, and she wishes for quality time. She feels that she has accomplished what she wants in life. She has a good relationship with her family, and values her daughters, and wants both of them to be involved in her medical decisions, if she is unable to make them. She has a grand daughter that assists in her care, who went out of town, then Donna said she felt mixed up, and got confused. Objective/Medical Story: admission for confusion in the setting of baseline mild cognitive impairment. unable to get MRI due to history of stapectomy with metal implant. imaging neg for CVA, but no MRI. in any event, her cognition has improved remarkably overnight and she would like to go home. She would never want to be a burden on her family, or to require great amounts of care. Goals of Care: DNR, DNI- selective treatment Plan: POLST completed today. Additional Discussion: DNR, DNI. selective treatment. Wants both daughters listed on POLST.
[2024-10-11 11:49] VITALS: BP 168/85; TEMP 97.5; O2SAT 95
--- NOTE | 2024-10-11 11:53 | Discharge Summary ---
"Discharge Summary Admit Date: 10/10/24 Discharge Date: 10/11/24 Discharging Provider: Cristal Anglin PA-C Primary Care Provider: RAY Salas Code Status: Do Not Attempt Resuscitation DIAGNOSES Discharge Diagnoses with Status of Each Condition: Altered mental status, present on admission, resolved. Atrial fibrillation Chronic anticoagulation on Eliquis History of polycythemia vera History of essential hypertension HPI History of Present Illness: presents to the ED with AMS. Unclear when last known normal. on Eliquis for a fib. Question of L proximal ICA dissection vs congenital fenestration of the Left ICU. CT head was negatve. Has been confused since at least 4pm, in the setting of baseline mild cog impairment Lives with family but her primary caregiver is out of town. Presented to the emergency department via POV with confusion for several hours. She states that she feels like she is mixed up recently and her thinking just is not right. She denies any recent falls. She is anticoagulated for atrial fibrillation on Eliquis and has been for some time. There is no family at the bedside. Patient is unable to give a clear history with regards to her surrogate decision maker or her CODE STATUS.She will therefore be full code by default at this time. 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 Telestroke neurologist reviewed CTA result and images. Their opinion is that this is not a dissection as there is flow both proximal and distal and her exam is not consistent with a large stroke syndrome such as MCA syndrome HOSPITAL COURSE Hospital Course: (1) Encephalopathy: Plan: Unclear if this is an acute mental status changes versus worsening of her cognitive impairment. She does not have a urinary tract infection. She does have elevated hemoglobin which could be hemoconcentration although review of the outpatient record does reveal that she has a history of polycythemia vera. She was admitted and monitored on telemetry overnight. Echocardiogram was completed but not read. MRI of the brain was unable to be completed secondary to history of stapectomy with metal implant. (2) Atrial fibrillation: Plan: History of atrial fibrillation which does put her at risk for CVA. She is chronically anticoagulated on Eliquis. She is also on digoxin. Her she is not tachycardic. Qualifiers: Atrial fibrillation type: unspecified chronic Qualified Code(s): I48.20 - Chronic atrial fibrillation, unspecified; I48.2 - Chronic atrial fibrillation (3) Chronic anticoagulation: Plan: On Eliquis and digoxin for history of atrial fibrillation. I will continue these medications. Patient denies any falls at home although she does admit to some incidences where she felt that she had to be more careful with her balance. (4) Polycythemia: Plan: History of polycythemia. Elevated hemoglobin on admission looking back, her hemoglobin is normally between 16 and 17. (5) Hx of essential hypertension: Plan: Home blood pressure medications include both metoprolol and diltiazem. restarted on discharge, held during admit. her BP did creep up ALLERGIES Allergies Allergy/AdvReac Type Severity Reaction Status Date / Time latex Allergy Intermediate swelling Verified 10/10/24 17:53 ascorbic acid Allergy Unknown Unknown Verified 10/10/24 17:53 Penicillins AdvReac Intermediate Rash Verified 10/10/24 17:53 Sulfa (Sulfonamide AdvReac Intermediate Itching Verified 10/10/24 17:53 Antibiotics) MEDICATIONS Ambulatory Orders Medication Instructions Recorded Confirmed atorvastatin 10 mg tablet 10 mg PO DAILY 05/26/23 09/18/24 Probiotic Multi-Enzyme 1 tab PO DAILY 05/27/23 09/18/24 cholecalciferol (vitamin D3) 25 50 mcg PO DAILY 05/27/23 09/18/24 mcg (1,000 unit) tablet cyanocobalamin (vitamin B-12) 1,000 mcg PO DAILY 05/27/23 09/18/24 1,000 mcg capsule gabapentin 300 mg capsule 300 mg PO QPM 05/27/23 09/18/24 glucosamine sulfate 1,000 mg tablet 2,000 mg PO DAILY 05/27/23 09/18/24 apixaban 5 mg tablet (Eliquis) 5 mg PO BID 09/18/24 09/18/24 ascorbic acid (vitamin C) 500 mg 500 mg PO QDAY 09/18/24 09/18/24 tablet colestipol 1 gram tablet (Colestid) 1 g PO DAILY 09/18/24 09/18/24 diclofenac sodium 1 % topical gel topical 09/18/24 09/18/24 digoxin 125 mcg (0.125 mg) tablet 125 mcg PO MOWEFR 09/18/24 09/18/24 ferrous sulfate 325 mg (65 mg 65 mg PO DAILY 09/18/24 09/18/24 iron) tablet omeprazole 20 mg capsule,delayed 20 mg PO BID 09/18/24 09/18/24 release ondansetron HCl 4 mg tablet 4 mg PO PRN 09/18/24 09/18/24 metoprolol succinate 50 mg 50 mg PO 0800,1700 #90 tabs 09/27/24 tablet,extended release 24 hr diltiazem HCl 180 mg 180 mg PO 1200,2200 #90 caps 10/10/24 capsule,extended release 24 hr ondansetron 4 mg disintegrating 4 mg translingual Q6HR PRN Nausea 10/11/24 tablet / Vomiting #20 tabs PHYSICAL EXAM AT DISCHARGE Physical Exam Other/Comments: Constitutional normal general appearance and no apparent distress HENMT normocephalic hard of hearing Eyes PERRL, EOMs intact bilaterally, conjunctivae normal and no scleral icterus Neck/C-Spine visual inspection normal and no carotid bruits Lymph no lymphadenopathy noted Chest inspection of chest normal Respiratory breath sounds equal bilaterally and normal respiratory effort Cardiovascular normal heart rate noted and regular rhythm noted (irregularly irreg) Gastrointestinal abdomen normal to inspection and abdomen soft to palpation Extremities normal to inspection Neurology professor of german II-XII intact, no movement abnormality noted, no focal motor deficit noted, no sensory deficits noted and GCS 15 Psychiatry mental status grossly normal and oriented x3 Skin skin color normal LABS 10/10/24 18:19 10/10/24 18:19 FOLLOW UP Follow Up: PCP 7-10 days- review Echo result. TIME SPENT Time Spent in Discharge (Minutes): 35 Discharge Plan Discharge Patient Disposition: Home, Self Care Condition: Stable Prescriptions: New ondansetron 4 mg Tablet,Disintegrating 4 mg translingual Q6HR PRN (Reason: Nausea / Vomiting) Qty: 20 0RF Continued metoprolol succinate 50 mg tablet extended release 24 hr 50 mg PO 0800,1700 Qty: 90 3RF Rx Instructions: Take twice a day: 1 at breakfast, and 1 with dinner at 6:00PM diltiazem HCl 180 mg capsule,extended release 24hr 180 mg PO 1200,2200 Qty: 90 0RF Rx Instructions: Take twice a day: one at lunchtime and one at bedtime omeprazole 20 mg capsule,delayed release(DR/EC) 20 mg PO BID Rx Instructions: take one capsule by mouth twice daily before breakfast and dinner atorvastatin 10 MG tablet 10 mg PO DAILY Rx Instructions: Recently prescribed, but patient has not started yet gabapentin 300 MG capsule 300 mg PO QPM cholecalciferol (vitamin D3) 25 MCG tablet 50 mcg PO DAILY cyanocobalamin (vitamin B-12) 1,000 MCG capsule 1,000 mcg PO DAILY glucosamine sulfate 1,000 MG tablet 2,000 mg PO DAILY Probiotic Multi-Enzyme 1 EACH tablet 1 tab PO DAILY digoxin 125 mcg (0.125 mg) tablet 125 mcg PO MOWE Rx Instructions: Take 1 tablet in the morning every Tuesday, Tuesday, and Tuesday Eliquis 5 mg tablet 5 mg PO BID ascorbic acid (vitamin C) 500 mg tablet 500 mg PO QDAY ondansetron HCl 4 mg tablet 4 mg PO PRN diclofenac sodium 1 % gel topical colestipol [Colestid] 1 gram tablet 1 g PO DAILY Rx Instructions: Recently prescribed, but patient has not started yet ferrous sulfate 325 mg (65 mg iron) tablet 65 mg PO DAILY Diet: Cardiac Interventions: Discharge Last Done: 10/11/24 12:58 Discharge Checklist - Nursing Last Done: 10/11/24 12:58 Health Concerns: You came into the hospital because your mental status seemed a little bit off. You have been confused all afternoon. You have not had any falls recently and your CT of the head looked normal. There was some question about the carotid artery on the left but when we spoke to the neurologist about it she felt that it was just a congenital difference. Overnight your mental status is improved and you seem back to normal. You are aware of where you are why you are here as well as the date and time.This morning you had an echocardiogram which is an ultrasound on your heart. I want you to follow-up with your primary care provider regarding the results of this as it will not be back for several days. I think, given that you are on the blood thinning medication for the atrial fibrillation you need to be very careful to avoid falls. If this means you need to start to use a walker this might be the right thing to do. While you were here we had a discussion about what you would want done in the case of a medical emergency. You decided that you would not want to have CPR or be on a ventilator. I think this makes a lot of sense given your age. Your daughters Clair and Twyla would be the people who would make her medical decisions if you are not able. Care Plan Goals: Resume all of your normal medications. I have sent in a prescription for Zofran to help with your chronic nausea. Assessment: This will not make you dizzy or drowsy. Mental status changes. We ruled out new stroke the best that we could. You are unable to get an MRI because of the history of metal implanted in your ear. Plan of Treatment: Continue all medications Follow-up with primary care provider in 7 to 10 days Print Language: Czech Follow-up Care: Martine Knott FNP [Provider Admit Priv/Credential] -"
== END 2024-10-11 13:08 | disposition home or self-care (01) ==
LOC: ED 17:45 → MS2 17:45
PROVIDERS: ADMIT Physician Assistant Medical; ATTEND Physician Assistant Medical
DX: G31.84 Mild cognitive impairment of uncertain or unknown etiology; G93.40 Encephalopathy, unspecified; I10 Essential (primary) hypertension; Z86.73 Personal history of transient ischemic attack (TIA), and cerebral infarction without residual deficits; D45 Polycythemia vera; Z66 Do not resuscitate; Z79.01 Long term (current) use of anticoagulants; I48.20 Chronic atrial fibrillation, unspecified